=== PATIENT | female | born 1945 | race Asian ===

== ENCOUNTER 2017-05-06 07:23 | Day surgery (SDC) | payer OTHER ==
[2017-05-05 19:50] VITALS: BMI 24.2
[2017-05-06 07:46] VITALS: TEMP 97.8
[2017-05-06 07:51] LABS: BASOPHIL 0.9 % (0-2.0); EOSINOPHIL 1.3 % (0-4.5); MCH 27.4 pg (25.7-33.7); MCHC 32.8 g/dl (32.0-36.0); MEAN CELL VOLUME 83.5 fl (80-96); MEAN PLT VOLUME 9.3 fl (7.5-11.1); NEUTROPHILS 61.7 % (42.8-82.8); PLATELET COUNT 152 K/MM3 (134-434); RDW 13.8 % (11.6-15.6)
[2017-05-06 08:12] LABS: INR 1.01 (0.82-1.09); PROTHROMBIN TIME (PATIENT) 11.1 SEC (9.98-11.88)
[2017-05-06 13:43] VITALS: PULSE 50
[2017-05-06 14:57] VITALS: BP 173/72
--- NOTE | 2017-05-07 13:15 | PATH ---
Surgical Pathology Report Patient Name: JHON SUMMERS [facility]. Rec. #: [id number] /Age/Gender: 1945 (Age: 71) / F Account: [id number] Location: RADIOLOGY Taken: 05/06/2017 Received: 05/06/2017 Reported: 05/07/2017 Physicians: Ascencion Mckeon M.D. Al Gann M.D. Kieran Estrada M.D. Specimen(s) Received LEFT UPPER LOBE LUNG BIOPSY Clinical History 71-year-old with enlarging left lung apex nodule Final Diagnosis LUNG, LEFT UPPER LOBE, CT GUIDED CORE BIOPSY: PULMONARY ADENOCARCINOMA, WELL TO MODERATELY DIFFERENTIATED, WITH PREDOMINANT ACINAR AND FOCAL LEPIDIC GROWTH PATTERNS. Comment: PD-L1 studies, EGFR and ALK studies are pending; results will be reported in an addendum.. The case was discussed with Dr. Gann on 05/07/17. Electronically Signed Napoleon Cruz M.D. Gross Description Received in formalin labelled "left lung biopsy" is 3 filaments of brumfield tissue each of which is less than 0.1 cm in diameter and between 0.3 and 0.8 cm in length. Totally submitted in one cassette. [facility]/05/06/2017 [facility]/05/06/2017
== END 2017-05-06 14:30 | disposition home or self-care (01) ==
LOC: JRADIR 07:23
PROVIDERS: ATTEND Internal Medicine Pulmonary Disease
PROC: BB2 Imaging, Respiratory System, Computerized Tomography (CT Scan) (ICD-10-PCS; principal; 2017-05-06)
DX: C34.12 Malignant neoplasm of upper lobe, left bronchus or lung (principal)
CPT/HCPCS: 32405; 36415; 71010-TC; 76098-TC; 77012-TC; 85025; 85610; 87899; 88305-TC

== ENCOUNTER 2019-07-13 08:21 | Inpatient (IN) | payer OTHER ==
--- NOTE | 2019-07-13 08:48 | PDOC ---
History of Present Illness - General Chief Complaint: Nausea/Vomiting Stated Complaint: Nausea/Vomiting Time Seen by Provider: 07/13/19 08:48 - History of Present Illness Initial Comments: 07/13/19 09:44 Ms. Portillo is a 74yo F with a pmhx of HTN, afib (on eliquis), HLD, and lung ca (s/ p L upper lobectomy) who presents to the ED with 3 days of epigastric pain also associated with bloating and back pain. Per the patient, she has been feeling like she has "trouble digesting" for the last several months but 3 days ago her sx became acutely worse and she also began to have back pain. She states the pain is in the epigastric region, is worse after eating and associated with bloating. She describes the pain as "tearing" and states it radiates to her back. She also said this morning she felt dizzy when getting out of bed. On ROS she denied BUTCHER, changes in vision/ hearing, throat pain, skin changes, diarrhea, constipation, vomiting. She endorsed chills, nausea, and dry heaving. 07/13/19 10:28 Past History - Travel Traveled outside of the country in the last 30 days: No Close contact w/someone who was outside of country & ill: No - Past Medical History Allergies/Adverse Reactions: Allergies Allergy/AdvReac Type Severity Reaction Status Date / Time No Known Drug Allergies Allergy Verified 05/05/17 19:50 Home Medications: Ambulatory Orders Apixaban [Eliquis] 5 mg PO BID 05/05/17 Losartan Potassium 100 mg PO DAILY 05/05/17 Metoprolol Succinate [Toprol Xl -] 12.5 mg PO DAILY 05/05/17 Simvastatin 20 mg PO HS 05/05/17 HTN: Yes Hypercholesterolemia: Yes Thyroid Disease: No - Psycho Social/Smoking Cessation Hx Smoking History: Never smoked Have you smoked in the past 12 months: No Hx Alcohol Use: No Drug/Substance Use Hx: No Substance Use Type: None Hx Substance Use Treatment: No Review of Systems - Review of Systems Able to Perform ROS?: Yes Is the patient limited Lao proficient: Yes Constitutional: Yes: Chills. No: Diaphoresis, Fever, Night Sweats, Weakness HEENTM: No: Eye Pain, Ear Pain, Nose Pain, Throat Pain Respiratory: Yes: Cough. No: Orthopnea, Shortness of Breath Cardiac (ROS): Yes: Irregular Heart Rate. No: Chest Pain, Lightheadedness ABD/GI: Yes: Abdominal Distended, Nausea. No: Abd. Pain w/ defecation, Constipated, Diarrhea, Rectal Bleeding, Vomiting, Tarry Stools : Yes: Dysuria (occasional). No: Flank Pain, Hematuria Musculoskeletal: Yes: Back Pain. No: Muscle Pain, Muscle Weakness Integumentary: No: Bruising, Lesions, Lumps, Rash Neurological: Yes: Dizziness. No: Headache, Numbness, Tingling Endocrine: No: Excessive Sweating, Flushing, Intolerance to Cold, Intolerance to Heat All Other Systems: Reviewed and Negative *Physical Exam - Physical Exam General Appearance: Yes: Nourished, Appropriately Dressed. No: Apparent Distress HEENT: positive: JOSE ELIAS, Normal ENT Inspection, Pharynx Normal Neck: positive: Trachea midline, Supple. negative: Tender Respiratory/Chest: positive: Lungs Clear, Normal Breath Sounds. negative: Respiratory Distress, Accessory Muscle Use, Crackles, Rales, Wheezing Cardiovascular: positive: Regular Rhythm, Regular Rate, S1, S2. negative: Murmur Gastrointestinal/Abdominal: positive: Normal Bowel Sounds, Flat, Soft, Tenderness (in the suprapubic area to deep palpation only). negative: Organomegaly, Pulsatile Mass Musculoskeletal: positive: Normal Inspection. negative: CVA Tenderness Extremity: positive: Normal Capillary Refill, Normal Inspection, Normal Range of Motion Integumentary: positive: Normal Color, Dry, Warm Neurologic: positive: circus roustabout II-XII NML intact, Fully Oriented, Alert, Normal Mood/ Affect, Normal Response, Motor Strength 12/11 ED Treatment Course - LABORATORY CBC & Chemistry Diagram: 07/13/19 09:40 07/13/19 09:40 Medical Decision Making - Medical Decision Making 07/13/19 09:50 Ms. Portillo is a 74yo F with a pmhx of HTN, afib (on eliquis), HLD, and lung ca (s/ p L upper lobectomy) who presents to the ED with 3 days of epigastric pain also associated with bloating and back pain. DDx includes PUD vs. cholelithiasis. Will Obtain: - CBC - CMP - Troponins - Lipase - UA/ucx - EKG - POCUS GB 07/13/19 12:57 -UA consistent with UTI, will tx with macrobid - LFTs slightly elevated, will obtain RUQ U/S 07/13/19 15:13 - RUQ u/s with evidence of "slightly coarse echotexture of the liver which may indicate fatty liver infiltrate vs. hepatocellular disease. Small amount GB sludge with small stones and significant thickening of the GB wall, measuring 11mm near the neck. No pericholecystic free fluid" Discharge - Discharge Information Problems reviewed: Yes Clinical Impression/Diagnosis: Abdominal pain Qualifiers: Abdominal location: epigastric Qualified Code(s): R10.13 - Epigastric pain Condition: Stable - Admission Yes - Follow up/Referral Referrals: ON STAFF,NOT [Primary Care Provider] - - Patient Discharge Instructions - Post Discharge Activity
[2019-07-13 08:49] VITALS: BMI 24.7
--- NOTE | 2019-07-13 10:11 | PDOC ---
Attending Attestation - Resident Resident Name: Gisela Culver - ED Attending Attestation I have performed the following: I have examined & evaluated the patient, The case was reviewed & discussed with the resident, I agree w/resident's findings & plan, Exceptions are as noted - HPI HPI: 07/13/19 10:22 74y F hx of htn, afib on eliquis, hl, lung ca (sp lobectomy) presents with worsening epigastric pain for last 3 days associated with burping and bloating especially after eating. Patient denies any fever, chills, cp, vomiting, diarrhea, shortness of breath, numbness, tingling, weakness. The patient does endorse some discomfort with urination. On exam the patient is in no acute distress Abdomen is mildly tender in the suprapubic region No CVA tenderness The patient's heart rate slightly bradycardic however seems regular Pulmonary exam: CTA bilaterally Differential for the patient's symptoms includes pancreatitis, gastritis, PUD, UTI, gallbladder disease The patient has mild epigastric tenderness We will obtain blood work, gallbladder ultrasound, UA - Physicial Exam PE: 07/15/19 09:16 see above - Medical Decision Making 07/13/19 12:02 Patient's blood work was reviewed LFTs slightly elevated UA is consistent with a UTI -we will treat with antibiotic Awaiting gallbladder ultrasound to screen for gallstones 07/13/19 17:02 The patient's ultrasound reveals some gallstones without obvious choledocholithiasis however there is significant wall thickening. As the patient does have some elevated LFTs will admit the patient for further evaluation and GI consultation. We will start the patient on ceftriaxone due to the wall thickening and, possibility of Cholecystitis. Heart Score/ECG Review - ECG Impressions Comment:: 07/13/19 12:04 Twelve-lead EKG was performed and reviewed by me. There is normal sinus rhythm with a rate of 55. The axis is normal. LVH T wave inversion in lateral leads Impression sinus bradycardia
[2019-07-13 10:12] LABS: BASO % 0.5 % (0-2.0); EOS % 0.4 % (0-4.5); HEMATOCRIT 42.5 % (32.4-45.2); HEMOGLOBIN 14.1 GM/dL (10.7-15.3); LYMPH % 14.9 % (8-40); MCH 28.4 pg (25.7-33.7); MCHC 33.2 g/dl (32.0-36.0); MEAN CELL VOLUME 85.4 fl (80-96); MEAN PLT VOLUME 9.1 fl (7.5-11.1); NEUT % 78.2 % (42.8-82.8); PLATELET COUNT 181 K/MM3 (134-434); RBC 4.98 M/mm3 (3.60-5.2); RDW 13.5 % (11.6-15.6); WHITE BLOOD COUNT 7.1 K/mm3 (4.0-10.0)
[2019-07-13] MEDS ORDERED: PANTOPRAZOLE SODIUM 40 MG VIAL IVPUSH ONE (10:23)
[2019-07-13 10:28] LABS: EPI CELLS 0.5 /HPF (0-5/HPF); HYALINE CASTS 44 /lpf (0-8); URINE APPEARANCE CLOUDY; URINE BACTERIA 4351.7 /hpf (NEGATIVE); URINE BILIRUBIN NEGATIVE (NEGATIVE); URINE COLOR YELLOW; URINE GLUCOSE (UA) NEGATIVE (NEGATIVE); URINE KETONE NEGATIVE (NEGATIVE); URINE LEUK ESTERASE 3+ (NEGATIVE); URINE NITRITE POSITIVE (NEGATIVE); URINE PROTEIN NEGATIVE (NEGATIVE); URINE RBC 4 /hpf (0-4); URINE UROBILINOGEN 0.2 mg/dL (0.2-1.0); URINE WBC 122 /hpf (0-5)
[2019-07-13 10:35] LABS: ALBUMIN 3.6 g/dl (3.4-5.0); ALK PHOS 71 U/L (45-117); ANION GAP 7 MMOL/L (8-16); BILIRUBIN,TOTAL 1.2 mg/dL (0.2-1); BLOOD UREA NITROGEN 9.4 mg/dL (7-18); CALCIUM 9.1 mg/dL (8.5-10.1); CHLORIDE 110 mmol/L (98-107); CO2 28 mmol/L (21-32); CREATININE 0.7 mg/dL (0.55-1.3); GLUCOSE,RANDOM 99 mg/dL (74-106); POTASSIUM 3.4 mmol/L (3.5-5.1); SGOT/AST 54 U/L (15-37); SGPT/ALT 155 U/L (13-61); SODIUM 144 mmol/L (136-145); TOT PROT 6.8 g/dl (6.4-8.2)
[2019-07-13] MEDS ORDERED: PANTOPRAZOLE SODIUM 40 MG/100 ML BAG IVPB ONE (10:49)
[2019-07-13] MEDS ORDERED: NITROFURANTOIN MACROCRYSTAL 50 MG CAPSULE (FP) PO SCH (12:15)
[2019-07-13] MEDS ORDERED: NITROFURANTOIN MACROCRYSTAL 50 MG CAPSULE (FP) ONE (13:14)
[2019-07-13] MEDS ORDERED: CEFTRIAXONE 1 GM in DEXTROSE 5%-WATER - 50 ML IVPB ONE ×2 (16:57→17:30)
--- NOTE | 2019-07-13 18:00 | PN ---
Teaching Attending Note Name of Resident: Geovanny Marin ATTENDING PHYSICIAN STATEMENT I saw and evaluated the patient. I reviewed the resident's note and discussed the case with the resident. I agree with the resident's findings and plan as documented with exceptions below. SUBJECTIVE: 74 yof with PMhx of Afib on Eliquis, HTN, HLD, BRENNA adenocarcinoma s/p lobectomy 2017, comes with 3 days of worsening epigastric discomfort, sharp radiating to back, more in RUQ, only with PO intake, none otherwise, associated with chills, nausea and poor oral intake. This AM, patient felt dizzy, weak, nausea with ongoing symptoms resulting in poor oral intake, prompting her to come to the ED. Patient reports intermittent dyspepsia with oral intake over the last 1 year, has been worse over last 2-3 days. per family last Gi follow up 6-7 years ago, with no recent follow up. H/o intermittent palpitations, was placed on Holter for 2 weeks till 06/[address] Chapman, with no report yet. Patient currently denies any chest pain, palpitations, dyspnea. Dizziness resolved. Activity limited by arthritis and some baseline dyspnea since her lobecotmy but no c/o exertional chest pain, worsening shortness of breath or prior h/o OR or CHF per family. Also c/o some dysuria for 1 day. OBJECTIVE: Vital Signs Period Temp Pulse Resp BP Sys/C[place]ez Pulse Ox Last 24 Hr 97.6 F-98.0 F 54-66 16-20 114-149/44-79 92-98 Intake & Output 07/10/19 07/11/19 07/12/19 07/13/19 23:59 23:59 23:59 23:59 Weight 135 lb GENERAL: Awake, alert, and fully oriented, in no acute distress. HEAD: Normal with no signs of trauma. EYES: Pupils equal, round and reactive to light, extraocular movements intact, sclera anicteric, conjunctiva clear. No lid lag. EARS, NOSE, THROAT: Ears normal, nares patent, oropharynx clear without exudates. Dry mucous membranes. NECK: Normal range of motion, supple, no JVD LUNGS: decreased breath sounds left lung, no rales or wheezing noted. HEART: Regular rate and rhythm, normal S1 and S2, systolic murmur in aortic region. ABDOMEN: Soft, tenderness in RUQ/Epigastrium/bhavin-umbilical region, most in RUQ , pos Renner's sign, no voluntary or involuntary guarding or rigidity, pos bowel sounds MUSCULOSKELETAL: Normal range of motion at all joints. No bony deformities or tenderness. No CVA tenderness. UPPER EXTREMITIES: 2+ pulses, warm, well-perfused. No cyanosis. No clubbing. No peripheral edema. LOWER EXTREMITIES: 2+ pulses, warm, well-perfused. No calf tenderness. No peripheral edema. NEUROLOGICAL: AAOx3, Cranial nerves II-XII intact. Normal speech. gait not observed PSYCHIATRIC: Cooperative. Good eye contact. Appropriate mood and affect. SKIN: Warm, dry, decreased turgor, no rashes or lesions noted, normal capillary refill. Home Medications Medication Instructions Recorded Apixaban [Eliquis] 5 mg PO BID 05/05/17 Losartan Potassium 100 mg PO DAILY 05/05/17 Metoprolol Succinate [Toprol Xl -] 25 mg PO DAILY 05/05/17 Simvastatin 20 mg PO HS 05/05/17 Amlodipine Besylate 5 mg PO HS 07/13/19 Hydrochlorothiazide [Hctz -] 12.5 mg PO DAILY 07/13/19 Oxybutynin Chloride [Ditropan Xl] 5 mg PO HS 07/13/19 Laboratory Results - last 24 hr 07/13/19 07/13/19 07/13/19 09:40 09:40 09:40 WBC 7.1 RBC 4.98 Hgb 14.1 Hct 42.5 MCV 85.4 MCH 28.4 MCHC 33.2 RDW 13.5 Plt Count 181 MPV 9.1 Absolute Neuts (auto) 5.5 Neutrophils % 78.2 D Lymphocytes % 14.9 D Monocytes % 6.0 Eosinophils % 0.4 D Basophils % 0.5 Nucleated RBC % 0 Sodium 144 Potassium 3.4 L Chloride 110 H Carbon Dioxide 28 Anion Gap 7 L BUN 9.4 Creatinine 0.7 Est GFR (CKD-EPI)AfAm 97.54 Est GFR (CKD-EPI)NonAf 84.16 Random Glucose 99 Calcium 9.1 Total Bilirubin 1.2 H AST 54 H ALT 155 H Alkaline Phosphatase 71 Troponin I < 0.02 Total Protein 6.8 Albumin 3.6 Lipase 102 Urine Color Urine Appearance Urine pH Ur Specific [place] Urine Protein Urine Glucose (UA) Urine Ketones Urine Blood Urine Nitrite Urine Bilirubin Urine Urobilinogen Ur Leukocyte Esterase Urine WBC (Auto) Urine RBC (Auto) Urine Casts (Auto) U Epithel Cells (Auto) Urine Bacteria (Auto) 07/13/19 10:05 WBC RBC Hgb Hct MCV MCH MCHC RDW Plt Count MPV Absolute Neuts (auto) Neutrophils % Lymphocytes % Monocytes % Eosinophils % Basophils % Nucleated RBC % Sodium Potassium Chloride Carbon Dioxide Anion Gap BUN Creatinine Est GFR (CKD-EPI)AfAm Est GFR (CKD-EPI)NonAf Random Glucose Calcium Total Bilirubin AST ALT Alkaline Phosphatase Troponin I Total Protein Albumin Lipase Urine Color Yellow Urine Appearance Cloudy Urine pH 7.0 Ur Specific [place] 1.007 L Urine Protein Negative Urine Glucose (UA) Negative Urine Ketones Negative Urine Blood Negative Urine Nitrite Positive H Urine Bilirubin Negative Urine Urobilinogen 0.2 Ur Leukocyte Esterase 3+ H Urine WBC (Auto) 122 Urine RBC (Auto) 4 Urine Casts (Auto) 44 U Epithel Cells (Auto) 0.5 Urine Bacteria (Auto) 4351.7 Gall bladder US results noted EKG sinus bradycardia, T inversion in aVL, V4-V6 (not present in 2017) ASSESSMENT AND PLAN: 74 yof with PMhx of Afib on Eliquis, HTN, HLD, BRENNA adenocarcinoma s/p lobectomy 2017, admitted with post prandial abdominal pain, abnormal LFTs and imaging consistent with gall stones and thickened gall bladder wall. -Biliary colic, low suspicion for biliary obstruction/cholangitis currently -Suspected acute on chronic cholecystitis -Abnormal LFts, likely from above -Lower uncomplicated UTI -Dehydration -Atrial fibrillation on eliquis -HTN -HLD -BRENNA adenocarcinoma s/p lobectomy 2016 Plan: Surgery consult, discussed with Dr. Floyd NPO, IVF, Ceftriaxone/flagyl. Serial abdominal exams. Trend LFTs, monitor hemodynamics closely. Blood cultures/escalation of abx if fevers or new concerns. Family requests GI consult. PPI IV daily Urine cultures. EKG with lateral T wave inversion, unclear if new. patient no active symptoms concerning for ACS. Will place on telemetry overnight, repeat Trop. Per family, recent holter with Dr. Chapman. Discuss with Dr. Chapman in AM, retrieve recent 2D echo results. Cardiology consult for pre-operative risk stratification. Continue metoprolol as tolerated. Hold norvasc/losartan for now. Hold eliquis (did not take her dose this AM) lovenox BID, to be held in AM pending surgical plans. Hold statin. DVTPPX as above Dispo admit to inpatient telemetry. Plan discussed with patient and family at bedside in detail, all questions answered total admit time 65 min.
--- NOTE | 2019-07-13 18:17 | HP ---
CHIEF COMPLAINT: Abdominal pain PCP: HISTORY OF PRESENT ILLNESS: Daughter at bedside assisting in Translating as pt Latvian speaking Pt is a 74 y/o F (Latvian speaking) Afib on Eliquis, HTN, HLD, BRENNA adenocarcinoma s/p lobectomy 2016 who presented to [facility] due to 3 days of progressively worsening right sided abdominal pain. Pt also endorses GI upset after she consumes food. Pt develops a stomach ache shortly after consuming food. Pt has experienced abdominal pain for the past 1 year associated with food but endorses she came to the ED today because symptoms have been progressively worse for the past 3 days. Endorses bloating, flatulence, chills, and cold sweats. States she has had a colonoscopy ~6-7 years ago which was reportedly normal. Does state she experiences palpitations and recently had a holter monitor on but has not received the results (Follows w/ Dr Patricio Toro- [facility]). ER course was notable for: (1) Gallbladder U/S---Slightly Coarse echotexture of liver. Small gallbladder sludge and likely small stones with significant thickening of its wall, adjacent to gallbladder neck region where measuring 11 mm thickness. Further evaluation is needed. No pericholecystic free fluid is present. Negative Sono murphys. (2) (3) Recent Travel: PAST MEDICAL HISTORY: as above PAST SURGICAL HISTORY: Hysterectomy, Lung Lobectomy Social History: Smoking: Denies Alcohol: Denies Drugs: Denies Allergies No Known Drug Allergies Allergy (Verified 05/05/17 19:50) HOME MEDICATIONS: Home Medications Medication Instructions Recorded Apixaban [Eliquis] 5 mg PO BID 05/05/17 Losartan Potassium 100 mg PO DAILY 05/05/17 Metoprolol Succinate [Toprol Xl -] 25 mg PO DAILY 05/05/17 Simvastatin 20 mg PO HS 05/05/17 Amlodipine Besylate 5 mg PO HS 07/13/19 Hydrochlorothiazide [Hctz -] 12.5 mg PO DAILY 07/13/19 Oxybutynin Chloride [Ditropan Xl] 5 mg PO HS 07/13/19 REVIEW OF SYSTEMS CONSTITUTIONAL: PRESENT chills HEENT: Absent: rhinorrhea, nasal congestion, throat pain, throat swelling, difficulty swallowing, mouth swelling, ear pain, eye pain, visual changes CARDIOVASCULAR: Absent: chest pain, syncope, palpitations, irregular heart rate, lightheadedness , peripheral edema RESPIRATORY: Absent: cough, shortness of breath, dyspnea with exertion, orthopnea, wheezing, stridor, hemoptysis GASTROINTESTINAL: PRESENT abdominal pain, abdominal distension, nausea GENITOURINARY: Absent: dysuria, frequency, urgency, hesitancy, hematuria, flank pain, genital pain MUSCULOSKELETAL: Absent: myalgia, arthralgia, joint swelling, back pain, neck pain SKIN: Absent: rash, itching, pallor HEMATOLOGIC/IMMUNOLOGIC: Absent: easy bleeding, easy bruising, lymphadenopathy, frequent infections ENDOCRINE: Absent: unexplained weight gain, unexplained weight loss, heat intolerance, cold intolerance NEUROLOGIC: Absent: headache, focal weakness or paresthesias, dizziness, unsteady gait, seizure, mental status changes, bladder or bowel incontinence PSYCHIATRIC: Absent: anxiety, depression, suicidal or homicidal ideation, hallucinations. PHYSICAL EXAMINATION Vital Signs - 24 hr 07/13/19 07/13/19 07/13/19 08:39 09:42 10:07 Temperature 97.6 F Pulse Rate 66 Pulse Rate [ 56 L Left Radial] Respiratory 20 16 Rate Blood Pressure 149/79 Blood Pressure 118/61 [Right Arm] O2 Sat by Pulse 92 L 98 Oximetry (%) 07/13/19 07/13/19 16:46 18:08 Temperature 98.0 F 98.0 F Pulse Rate Pulse Rate [ 54 L 60 Left Radial] Respiratory 16 Rate Blood Pressure Blood Pressure 114/44 L 130/51 L [Right Arm] O2 Sat by Pulse 96 98 Oximetry (%) GENERAL: NAD HEAD: Normal with no signs of trauma. EYES: EOMI Sclera Clear EARS, NOSE, THROAT: MMM NECK: Supple LUNGS: CTA b/l HEART: RRR S1S2 ABDOMEN: Soft, no guarding or rigidity. Tender RUQ. Renner's negative during my exam. LOWER EXTREMITIES: No CCE NEUROLOGICAL: Cranial nerves II-XII intact. Normal speech. PSYCHIATRIC: Cooperative. Good eye contact. Appropriate mood and affect. SKIN: Warm, dry, normal turgor, no rashes or lesions noted, normal capillary refill. Laboratory Results - last 24 hr 07/13/19 07/13/19 07/13/19 09:40 09:40 09:40 WBC 7.1 RBC 4.98 Hgb 14.1 Hct 42.5 MCV 85.4 MCH 28.4 MCHC 33.2 RDW 13.5 Plt Count 181 MPV 9.1 Absolute Neuts (auto) 5.5 Neutrophils % 78.2 D Lymphocytes % 14.9 D Monocytes % 6.0 Eosinophils % 0.4 D Basophils % 0.5 Nucleated RBC % 0 Sodium 144 Potassium 3.4 L Chloride 110 H Carbon Dioxide 28 Anion Gap 7 L BUN 9.4 Creatinine 0.7 Est GFR (CKD-EPI)AfAm 97.54 Est GFR (CKD-EPI)NonAf 84.16 Random Glucose 99 Calcium 9.1 Total Bilirubin 1.2 H AST 54 H ALT 155 H Alkaline Phosphatase 71 Troponin I < 0.02 Total Protein 6.8 Albumin 3.6 Lipase 102 Urine Color Urine Appearance Urine pH Ur Specific [place] Urine Protein Urine Glucose (UA) Urine Ketones Urine Blood Urine Nitrite Urine Bilirubin Urine Urobilinogen Ur Leukocyte Esterase Urine WBC (Auto) Urine RBC (Auto) Urine Casts (Auto) U Epithel Cells (Auto) Urine Bacteria (Auto) 07/13/19 10:05 WBC RBC Hgb Hct MCV MCH MCHC RDW Plt Count MPV Absolute Neuts (auto) Neutrophils % Lymphocytes % Monocytes % Eosinophils % Basophils % Nucleated RBC % Sodium Potassium Chloride Carbon Dioxide Anion Gap BUN Creatinine Est GFR (CKD-EPI)AfAm Est GFR (CKD-EPI)NonAf Random Glucose Calcium Total Bilirubin AST ALT Alkaline Phosphatase Troponin I Total Protein Albumin Lipase Urine Color Yellow Urine Appearance Cloudy Urine pH 7.0 Ur Specific [place] 1.007 L Urine Protein Negative Urine Glucose (UA) Negative Urine Ketones Negative Urine Blood Negative Urine Nitrite Positive H Urine Bilirubin Negative Urine Urobilinogen 0.2 Ur Leukocyte Esterase 3+ H Urine WBC (Auto) 122 Urine RBC (Auto) 4 Urine Casts (Auto) 44 U Epithel Cells (Auto) 0.5 Urine Bacteria (Auto) 4351.7 ASSESSMENT/PLAN: Pt is a 74 y/o F (Latvian speaking) Afib on Eliquis, HTN, HLD, BRENNA adenocarcinoma s/p lobectomy 2016 who presented to [facility] due to 3 days of progressively worsening right sided abdominal pain. #Abdominal pain 2/2 Cholelithiasis or Peptic Ulcer -Gallbladder U/S--> Gallbladder U/S---Slightly Coarse echotexture of liver. Small gallbladder sludge and likely small stones with significant thickening of its wall, adjacent to gallbladder neck region where measuring 11 mm thickness. Further evaluation is needed. No pericholecystic free fluid is present. Negative Sono murphys. -Bili, AST, ALT: 1.2, 54, 155 respectively. -Given Ceftriaxone in ED -Will place on Cef+Flagyl -Surgery on board-Dr Floyd. Recs appreciated. -Will switch Eliquis for Lovenox 1 mg/kg BID as pt may possiblly be a surgical candidate -NPO -Pantoprazole -GI Consult. Appreciate recs. #R/O ACS -EKG with new T wave inversions -Will place on tele. 1st trop negative. Will order stat repeat. #AFIB -Will switch Eliquis to Lovenox 1mg/kg BID #HLD Hold statin in light of elevated liver enzymes #HTN Continue Metoprolol. Hold Norvasc and HCTZ #FEN D51/2 NS w/ 20 mEQ KCL Monitor Electrolytes NPO #DVT ppx: Lovenox 1mg/kg BID #Dispo Tele Visit type - Emergency Visit Emergency Visit: Yes ED Registration Date: 07/13/19 Care time: The patient presented to the Emergency Department on the above date and was hospitalized for further evaluation of their emergent condition. - New Patient This patient is new to me today: Yes Date on this admission: 07/13/19 - Critical Care Critical Care patient: No ATTENDING PHYSICIAN STATEMENT I saw and evaluated the patient. I reviewed the resident's note and discussed the case with the resident. I agree with the resident's findings and plan as documented. SUBJECTIVE: OBJECTIVE: ASSESSMENT AND PLAN:
[2019-07-13] MEDS ORDERED: D5-1/2NS+20 MEQ KCL - 20 MEQ/1,000 ML INFUS.BAG IV SCH (19:00)
[2019-07-13] MEDS ORDERED: ENOXAPARIN NA (PORCINE) 60 MG/0.6 ML DISP.SYRIN SQ ONE (22:31)
[2019-07-13] MEDS: ENOXAPARIN NA (PORCINE) 60 MG/0.6 ML DISP.SYRIN SQ SCH (22:44)
[2019-07-13 23:44] LABS: BILIRUBIN,DIRECT 0.3 mg/dL (0.0-0.2)
[2019-07-14 06:31] LABS: BASO % 0.9 % (0-2.0); EOS % 0.9 % (0-4.5); HEMATOCRIT 39.8 % (32.4-45.2); HEMOGLOBIN 13.2 GM/dL (10.7-15.3); LYMPH % 31.1 % (8-40); MCH 28.4 pg (25.7-33.7); MCHC 33.2 g/dl (32.0-36.0); MEAN CELL VOLUME 85.5 fl (80-96); MEAN PLT VOLUME 9.1 fl (7.5-11.1); MONO % 7.7 % (3.8-10.2); NEUT % 59.4 % (42.8-82.8); PLATELET COUNT 161 K/MM3 (134-434); RBC 4.65 M/mm3 (3.60-5.2); RDW 13.2 % (11.6-15.6); WHITE BLOOD COUNT 4.3 K/mm3 (4.0-10.0)
[2019-07-14 06:51] LABS: INR 0.99 (0.83-1.09); PROTHROMBIN TIME (PATIENT) 11.7 SEC (9.7-13.0)
[2019-07-14 06:54] LABS: ACTIVATED PTT 37.2 SECONDS (25.2-36.5)
[2019-07-14 06:56] LABS: ALBUMIN 3.2 g/dl (3.4-5.0); BILIRUBIN,TOTAL 1.2 mg/dL (0.2-1); BLOOD UREA NITROGEN 9.2 mg/dL (7-18); CALCIUM 8.3 mg/dL (8.5-10.1); CREATININE 0.7 mg/dL (0.55-1.3); MAGNESIUM 2.1 mg/dL (1.8-2.4); PHOSPHOROUS 2.8 mg/dL (2.5-4.9); POTASSIUM 3.2 mmol/L (3.5-5.1); TOT PROT 5.8 g/dl (6.4-8.2)
[2019-07-14] MEDS ORDERED: KCL 10 MEQ IVPB 10 MEQ/100 ML INFUS.BAG IVPB ONE ×3 (07:52→13:17)
--- NOTE | 2019-07-14 08:30 | CONSULT ---
- Consultation REQUESTING PROVIDER: CONSULT REQUEST: We have been asked to surgically evaluate this patient for cholecystitis PCP:Josue Hackett MD HISTORY OF PRESENT ILLNESS: 74yo F presented to the ED with complaints of worsening epigastric pain x 2 days. Pt states that the pain has been intermittant for the past year usually occuring after she eats then going away. Pt states that 2 days ago the pain started and was epigastric radiating to her back. Pain was associated with nausea, but no vomiting. Pt denies fever, chill. PMHx: Afib on eliquis, HTN, HLD, lung cancer (in remission) PSHx: BRENNA lobectomy, abdominal hysterectomy Home Medications Medication Instructions Recorded Apixaban [Eliquis] 5 mg PO BID 05/05/17 Losartan Potassium 100 mg PO DAILY 05/05/17 Metoprolol Succinate [Toprol Xl -] 25 mg PO DAILY 05/05/17 Simvastatin 20 mg PO HS 05/05/17 Amlodipine Besylate 5 mg PO HS 07/13/19 Hydrochlorothiazide [Hctz -] 12.5 mg PO DAILY 07/13/19 Oxybutynin Chloride [Ditropan Xl] 5 mg PO HS 07/13/19 Allergies Allergy/AdvReac Type Severity Reaction Status Date / Time No Known Drug Allergies Allergy Verified 05/05/17 19:50 REVIEW OF SYSTEMS: CARDIOVASCULAR: Absent: chest pain, syncope, palpitations, irregular heart rate, lightheadedness , peripheral edema RESPIRATORY: Absent: cough, shortness of breath, dyspnea with exertion, wheezing, stridor, hemoptysis MUSCULOSKELETAL: Absent: myalgia, arthralgia, joint swelling, back pain, neck pain SKIN: Absent: rash, itching, pallor HEMATOLOGIC/IMMUNOLOGIC: Absent: easy bleeding, easy bruising, lymphadenopathy PHYSICAL EXAM: GENERAL: Awake, alert, and fully oriented, in no acute distress. HEAD: Normal with no signs of trauma. EYES: PERRL, sclera anicteric, conjunctiva clear. NECK: Normal ROM ABDOMEN: Soft, mild epigastric and RUQ tenderness, not distended, no guarding, no rebound, no masses. No organomegaly. MUSCULOSKELETAL: Normal ROM at all joints. No bony deformities or tenderness. No CVA tenderness. UPPER EXTREMITIES: warm, well-perfused. No cyanosis.No peripheral edema. LOWER EXTREMITIES: warm, well-perfused. No calf tenderness. No peripheral edema. NEUROLOGICAL: Normal speech, gait not observed. PSYCH: Cooperative. Good eye contact. Appropriate mood and affect. SKIN: Warm, dry, normal turgor, no rashes or lesions noted. Vital Signs Temperature 97.6 F 07/14/19 07:07 Pulse Rate 56 L 07/14/19 07:07 Respiratory Rate 18 07/14/19 07:07 Blood Pressure 122/66 07/14/19 07:07 O2 Sat by Pulse Oximetry (%) 96 07/14/19 07:07 Lab Results WBC 4.3 K/mm3 (4.0-10.0) 07/14/19 05:30 RBC 4.65 M/mm3 (3.60-5.2) 07/14/19 05:30 Hgb 13.2 GM/dL (10.7-15.3) 07/14/19 05:30 Hct 39.8 % (32.4-45.2) 07/14/19 05:30 MCV 85.5 fl (80-96) 07/14/19 05:30 MCHC 33.2 g/dl (32.0-36.0) 07/14/19 05:30 RDW 13.2 % (11.6-15.6) 07/14/19 05:30 Plt Count 161 K/MM3 (134-434) 07/14/19 05:30 Sodium 144 mmol/L (136-145) 07/14/19 05:30 Potassium 3.2 mmol/L (3.5-5.1) L 07/14/19 05:30 Chloride 111 mmol/L (98-107) H 07/14/19 05:30 Carbon Dioxide 29 mmol/L (21-32) 07/14/19 05:30 Anion Gap 5 MMOL/L (8-16) L 07/14/19 05:30 BUN 9.2 mg/dL (7-18) 07/14/19 05:30 Creatinine 0.7 mg/dL (0.55-1.3) 07/14/19 05:30 Random Glucose 128 mg/dL (74-106) H 07/14/19 05:30 Calcium 8.3 mg/dL (8.5-10.1) L 07/14/19 05:30 INR 0.99 (0.83-1.09) 07/14/19 05:30 Gallbladder U/S--> Gallbladder U/S---Slightly Coarse echotexture of liver. Small gallbladder sludge and likely small stones with significant thickening of its wall, adjacent to gallbladder neck region where measuring 11 mm thickness. Further evaluation is needed. No pericholecystic free fluid is present. Negative Sono murphys. Problem List - Problems (1) Cholecystitis Assessment/Plan: Plan -due to elevated LFTs, will hold off on surgery today and most likely schedule for Wednesday. -trend LFTs, consider GI consult -continue NPO, IV fluids for now. -will need medical and cardiology clearance for surgery. -will follow Code(s): K81.9 - CHOLECYSTITIS, UNSPECIFIED
[2019-07-14] MEDS: KCL 10 MEQ IVPB 10 MEQ/100 ML INFUS.BAG IVPB SCH ×3 (08:41→13:24)
--- NOTE | 2019-07-14 09:12 | CON.CARD ---
Consult Consult Specialty:: Cardiology Referred by:: Dr. Hackett Reason for Consultation:: HTN/HLD - History of Present Illness Chief Complaint: Epigastric pain History of Present Illness: 74F HTN, HLD, PAF, 4.8cm thoracic aortic aneurysm (follow by Dr. Toor) presents with 2-3 days of worsening post prandial epigastric pain and nausea. US showed GB sludge and stones. Denies CP, SOB, + occasional palps corresponding to her PAF. Exercise capacity limited by OA knees. hx obtained from daughter at bedside in [place] - History Source History Provided By: Patient, Family Member Limitations to Obtaining History: No Limitations - Past Medical History BALLISTIC EXPERT: No: Alzheimer's, CVA, Dementia, Migraine, Multiple Sclerosis, Peripheral Neuropathy, Parkinson's, Seizure, Syncope, TIA, Vertigo, Other Cardio/Vascular: Yes: HTN, Other (4.8cm thoracic aortic aneurysm) Pulmonary: No: Asthma, Bronchitis, Cancer, COPD, O2 Dependent, Pneumonia, Previously Intubated, Pulmonary Embolus, Pulmonary Fibrosis, Sleep Apnea, Other Gastrointestinal: No: Ascites, Cancer, Constipation, Crohn's Disease, Diverticulitis, Diverticulosis, Esophageal Varices, Gastritis, GERD, GI Bleed, Hemorrhoids, Hiatal Hernia, Inflamatory Bowel Disease, Irritable Bowel Disease, Pancreatitis, Peptic Ulcer Disease, Ulcerative Colitis, Other Hepatobiliary: No: Cirrhosis, Cholelithiasis, Cholecystitis, Choledocholithiasis , Hepatitis A, Hepatitis B, Hepatitis C, Other Renal/: No: Renal Failure, Renal Inusuff, BPH, Cancer, Hematuria, Hemodialysis , Neurogenic Bladder, Renal Calculi, UTI, Other Reproductive: No: Ectopic , Endometriosis, Fibroids, PID, Polycystic Ovary Syndrome, Postmenopausal, Other Heme/Onc: Yes: Cancer, Other (lung ca s/p left lobectomy) Infectious Disease: No: AIDS, C-Diff, Herpes Zoster, HIV, MRSA, STD's, Tuberculosis, VREF, Other Musculoskeletal: Yes: Osteoarthritis Rheumatology: No: Fibromyalgia, Gout, Lupus, Rheumatoid Arthritis, Sarcoidosis, Vasculitis, Other ENT: No: Allergic Rhinitis, Sinusitis, Other Endocrine: No: Wich[place]'s Disease, Sarita's Disease, Diabetes Insipidus, Diabetes Mellitus, Hyperparathyroidism, Hyperthyroidism, Hypothyroidism, Osteopenia, SIADH, Other Dermatology: No: Basal Cell, Cellulitis, Eczema, Melanoma, Psoriasis, Squamous Cell, Other - Past Surgical History Additional Surgical History: lobectomy - Alcohol/Substance Use Hx Alcohol Use: No - Smoking History Smoking history: Never smoked Have you smoked in the past 12 months: No - Social History Usual Living Arrangement: Alone History of Recent Travel: No Home Medications - Allergies Allergies/Adverse Reactions: Allergies Allergy/AdvReac Type Severity Reaction Status Date / Time No Known Drug Allergies Allergy Verified 05/05/17 19:50 - Home Medications Home Medications: Ambulatory Orders Apixaban [Eliquis] 5 mg PO BID 05/05/17 Losartan Potassium 100 mg PO DAILY 05/05/17 Metoprolol Succinate [Toprol Xl -] 25 mg PO DAILY 05/05/17 Simvastatin 20 mg PO HS 05/05/17 Amlodipine Besylate 5 mg PO HS 07/13/19 Hydrochlorothiazide [Hctz -] 12.5 mg PO DAILY 07/13/19 Oxybutynin Chloride [Ditropan Xl] 5 mg PO HS 07/13/19 Family Medical History Family History: Unremarkable Review of Systems Findings/Remarks: see HPI - Review of Systems Constitutional: reports: No Symptoms Eyes: reports: No Symptoms HENT: reports: No Symptoms Neck: reports: No Symptoms Cardiovascular: reports: No Symptoms Respiratory: reports: No Symptoms Gastrointestinal: reports: Abdominal Pain, Nausea, Vomiting Blood Genitourinary: denies: No Symptoms, Burning, Discharge, Dysuria, Flank Pain, Frequency, Hematuria, Incontinence, Lesions, Menses, Pain, Testicular Mass, Testicular Pain, Testicular Swelling, Urgency, Vaginal Bleeding, Other Breasts: denies: No Symptoms Reported, See HPI, Breast Implants, Discharge from Nipple, Lumps, Pain, Skin Changes, Other Musculoskeletal: denies: No Symptoms, Back Pain, Crepitus, Decreased ROM, Extremity Pain, Joint Pain, Joint Swelling, Muscle Pain, Muscle Cramps, Muscle Weakness, Other Integumentary: denies: No Symptoms, Blister, Bruising, Change in Color, Eczema, Erythema, Incision, Lesions, Lump, Pallor, Pruritis, Rash, Wound, Other Neurological: denies: No Symptoms, Change in LOC, Change in Speech, Confusion, Dizziness, Headache, Incoordination, Numbness, Parasthesia, Pre-Existing Deficit , Seizure, Syncope, Tremors, Unsteady Gait, Weakness, Other Endocrine: denies: No Symptoms, Excessive Sweating, Flushing, Increased Hunger, Increased Thirst, Intolerance to Cold, Intolerance to Heat, Unexplained Weight Gain, Unexplained Weight Loss, Other Hematology/Lymphatic: denies: No Symptoms, Easily Bruised, Excessive Bleeding, Swollen Glands, Other Psychiatric: denies: No Symptoms, Altered Sleep Pattern, Anxiety, Depression, Hallucinations, Panic, Paranoia, Suicidal, Other - Risk Factors Known Risk Factors: Yes: Hypercholesterolemia, Hypertension Vital Signs: Vital Signs Temperature 97.6 F 07/14/19 07:07 Pulse Rate 56 L 07/14/19 07:07 Respiratory Rate 18 07/14/19 07:07 Blood Pressure 122/66 07/14/19 07:07 O2 Sat by Pulse Oximetry (%) 96 07/14/19 07:07 Constitutional: Yes: No Distress, Calm Eyes: Yes: Conjunctiva Clear, EOM Intact HENT: Yes: Atraumatic, Normocephalic Neck: Yes: Trachea Midline Respiratory: Yes: CTA Bilaterally Gastrointestinal: Yes: Soft (Mild RUQ tenderness) Renal/: No: WNL, Anuria, Bladder Distention, CVA Tenderness - Left, CVA Tenderness - Right, Lei Present, Hematuria, Incontinence, Menses Present, Oliguria, Polyuria, , Scrotal Edema, Urethral Discharge, Vaginal Bleeding, Vaginal Discharge, Other Cardiovascular: No: WNL, Regular Rate and Rhythm, Bradycardia, Tachycardia, Pulse Irregular, Gallop, Rub, Varicosities, Other JVD: No Carotid Bruit: No PMI: Non-Displaced Heart Sounds: Yes: S1, S2 Edema: No Peripheral Pulses WNL: No Integumentary: Yes: WNL Neurological: Yes: WNL - Other Data Labs, Other Data: CBC, BMP 07/14/19 05:30 07/14/19 05:30 INR, PTT INR 0.99 (0.83-1.09) 07/14/19 05:30 Troponin, BNP 07/13/19 07/13/19 09:40 22:41 Troponin I < 0.02 < 0.02 Troponin, BNP 07/13/19 07/13/19 09:40 22:41 Troponin I < 0.02 < 0.02 Laboratory Tests 07/13/19 07/13/19 07/13/19 09:40 09:40 22:41 WBC Hgb Plt Count INR Sodium Potassium Creatinine Magnesium Total Bilirubin AST 54 H ALT 155 H Alkaline Phosphatase Troponin I < 0.02 < 0.02 Lipase 102 07/14/19 07/14/19 07/14/19 05:30 05:30 05:30 WBC 4.3 Hgb 13.2 Plt Count 161 INR 0.99 Sodium 144 Potassium 3.2 L Creatinine 0.7 Magnesium 2.1 Total Bilirubin 1.2 H AST 26 ALT 98 H Alkaline Phosphatase 58 Troponin I Lipase Sinus agatha 55, LVH, NSST changes/ repol changes- I, AvL and V5/V6; when compared to EKG '[address]/T changes in V5/6 slightly more pronounced Echo: Pending Imaging - Results X-ray: Image Reviewed EKG: Image Reviewed Assessment/Plan IMP: 1. Biliary colic 2. PAF on AC 3. Chronic 4.8cm thoracic aortic aneurysm under surveillance 4. HTN 5. HLD 6. Hx Lung Ca, Lobectomy REC: 1. Work up and treatment of biliary colic as per PMD/GI/Surgery 2. If urgent cholecystectomy is necessary, there are no absolute cardiac contraindications to surgery (no , euvolemic, controlled BP, no unstable anginal sx). Echo for EF assessment. 3. Will try and obtain records from Dr. Toro 4. Continue home meds; now on Lovenox in event surgery required.
[2019-07-14] MEDS: metoPROLOL SUCCINATE 25 MG TAB.SR.24H (FP) PO SCH (09:49)
[2019-07-14] MEDS ORDERED: metoPROLOL SUCCINATE 25 MG TAB.SR.24H (FP) PO SCH (10:00)
[2019-07-14] MEDS ORDERED: D5-1/2NS+10 MEQ KCL - 10 MEQ/1,000 ML INFUS.BAG IV SCH (10:45)
--- NOTE | 2019-07-14 10:53 | ECHO ---
Name: JHON SUMMERS Exam:Adult Echocardiogram Study Date: 07/14/2019 09:59 AM Age: 74 yrs Reason For Study: LV Function Height: 62 in Weight: 135 lb BSA: 1.6 m2 MMode/2D Measurements & Calculations IVSd: 1.2 cm Ao root diam: 3.3 cm LVIDd: 3.3 cm LA dimension: 3.4 cm LVIDs: 2.5 cm LVPWd: 1.1 cm EDV(Teich): 45.2 ml LVOT diam: 2.0 cm ESV(Teich): 22.6 ml LAV (MOD-bp): 52.8 ml Doppler Measurements & Calculations MV E max navi: 107.0 cm/sec Ao V2 max: 162.9 cm/sec MV A max navi: 76.2 cm/sec Ao max P.6 mmHg MV E/A: 1.4 AI P1/2t: 464.6 msec MV dec time: 0.20 sec BEATRIZ(V,D): 2.4 cm2 AI max navi: 455.6 cm/sec LV V1 max P.2 mmHg AI max P.1 mmHg LV V1 max: 124.7 cm/sec AI dec slope: 287.2 cm/sec2 MR max navi: 537.5 cm/sec TR max navi: 297.9 cm/sec MR max P.2 mmHg TR max P.7 mmHg PA V2 max: 88.2 cm/sec Med Peak E' Navi: 5.4 cm/sec PA max P.1 mmHg Med E/e': 19.7 Lat Peak E' Navi: 5.2 cm/sec Lat E/e': 20.5 PI Vmax: 124.9 cm/sec Left Ventricle There is mild concentric left ventricular hypertrophy. Ejection Fraction = 55-60%. The transmitral sp ectral Doppler flow pattern is normal for age. Right Ventricle The right ventricle is normal in size and function. Atria Normal left and right atrial size and function. Mitral Valve There is mild mitral annular calcification. There is no mitral valve stenosis. There is mild mitral regurgitation. Tricuspid Valve The tricuspid valve is normal in structure and function. There is mild tricuspid regurgitation. Right ventricular systolic pressure is elevated at 30-40mmHg. Aortic Valve There is mild aortic sclerosis.;. No hemodynamically significant valvular aortic stenosis. Mild aorti c regurgitation. Pulmonic Valve The pulmonic valve is not well seen, but is grossly normal. There is no pulmonic valvular stenosis. T race pulmonic valvular regurgitation. Great Vessels Moderately dilated ascending aorta. Pericardium/Pleura There is no pericardial effusion. Interpretation Summary There is mild concentric left ventricular hypertrophy. Ejection Fraction = 55-60%. The right ventricle is normal in size and function. There is mild mitral annular calcification. There is mild mitral regurgitation. There is mild tricuspid regurgitation. Right ventricular systolic pressure is elevated at 30-40mmHg. There is mild aortic sclerosis.; Mild aortic regurgitation. Moderately dilated ascending aorta. There is no pericardial effusion. MD Simental *Vaishali 07/14/2019 10:53 AM
[2019-07-14] MEDS: PANTOPRAZOLE SODIUM 40 MG VIAL IVPUSH SCH (11:15)
--- NOTE | 2019-07-14 11:46 | EKG ---
Test Reason : Blood Pressure : / mmHG Vent. Rate : 055 BPM Atrial Rate : 055 BPM P-R Int : 144 ms QRS Dur : 076 ms QT Int : 478 ms P-R-T Axes : 000 -09 150 degrees QTc Int : 457 ms SINUS BRADYCARDIA LEFT VENTRICULAR HYPERTROPHY WITH REPOLARIZATION ABNORMALITY ABNORMAL ECG WHEN COMPARED WITH ECG OF 27-MAY-2017 10:29, CO INTERVAL HAS DECREASED T WAVE INVERSION MORE EVIDENT IN ANTEROLATERAL LEADS Confirmed by CARY ALFARO MD ([id number]) on 07/14/2019 11:46:11 AM Referred By: Confirmed By:CARY ALFARO MD
[2019-07-14] MEDS: CEFTRIAXONE 2 GM in DEXTROSE 5%-WATER 100 ML IVPB SCH (12:25)
--- NOTE | 2019-07-14 16:01 | PN ---
Physical Exam: SUBJECTIVE: Patient seen and examined at the bedside. Patient stated that she feels fine if she does not eat, but when she does eat she endorses RUQ pain. Lying in bed comfortably. Denies cp, sob, fever, chills, n/v/c/d, headaches, dizziness, lightheadness, numbness, tingling, weakness. OBJECTIVE: Vital Signs Period Temp Pulse Resp BP Sys/Cortez Pulse Ox Last 24 Hr 97.5 F-98.0 F 52-69 16-20 114-145/44-67 95-98 GENERAL: Awake, alert, and fully oriented, in no acute distress. [place]ic speaking. HEAD: Normal with no signs of trauma. EYES: Pupils equal, round and reactive to light, extraocular movements intact, sclera anicteric, conjunctiva clear. EARS, NOSE, THROAT: Oropharynx clear without exudates. Moist mucous membranes. NECK: Normal range of motion, supple without lymphadenopathy, JVD. LUNGS: Breath sounds equal, clear to auscultation bilaterally. No wheezes, and no crackles. No accessory muscle use. HEART: Regular rate and rhythm, normal S1 and S2 without murmur, rub. ABDOMEN: Soft, mildly tender to palpation in RUQ, Renner's negative, not distended, normoactive bowel sounds, no guarding, no rebound, no masses. MUSCULOSKELETAL: Normal range of motion at all joints. No bony deformities or tenderness. UPPER EXTREMITIES: 2+ pulses, warm, well-perfused. No cyanosis. No clubbing. No peripheral edema. LOWER EXTREMITIES: 2+ pulses, warm, well-perfused. No calf tenderness. No peripheral edema. NEUROLOGICAL: Cranial nerves II-XII intact. 5/5 muscle strength bilaterally upper and lower extremities. PSYCHIATRIC: Cooperative. Good eye contact. Appropriate mood and affect. SKIN: Warm, dry, normal turgor, no rashes or lesions noted, normal capillary refill. Laboratory Results - last 24 hr 07/13/19 07/14/19 07/14/19 22:41 05:30 05:30 WBC 4.3 RBC 4.65 Hgb 13.2 Hct 39.8 MCV 85.5 MCH 28.4 MCHC 33.2 RDW 13.2 Plt Count 161 MPV 9.1 Absolute Neuts (auto) 2.5 Neutrophils % 59.4 D Lymphocytes % 31.1 D Monocytes % 7.7 Eosinophils % 0.9 D Basophils % 0.9 Nucleated RBC % 0 PT with INR 11.70 INR 0.99 PTT (Actin FS) 37.2 H Sodium Potassium Chloride Carbon Dioxide Anion Gap BUN Creatinine Est GFR (CKD-EPI)AfAm Est GFR (CKD-EPI)NonAf POC Glucometer Random Glucose Calcium Phosphorus Magnesium Total Bilirubin Direct Bilirubin 0.3 H AST ALT Alkaline Phosphatase Troponin I < 0.02 Total Protein Albumin 07/14/19 07/14/19 07/14/19 05:30 05:30 13:25 WBC RBC Hgb Hct MCV MCH MCHC RDW Plt Count MPV Absolute Neuts (auto) Neutrophils % Lymphocytes % Monocytes % Eosinophils % Basophils % Nucleated RBC % PT with INR INR PTT (Actin FS) Sodium 144 Potassium 3.2 L Chloride 111 H Carbon Dioxide 29 Anion Gap 5 L BUN 9.2 Creatinine 0.7 Est GFR (CKD-EPI)AfAm 97.54 Est GFR (CKD-EPI)NonAf 84.16 POC Glucometer 106 Random Glucose 128 H Calcium 8.3 L Phosphorus 2.8 Magnesium 2.1 Total Bilirubin 1.2 H Direct Bilirubin 0.2 AST 26 ALT 98 H Alkaline Phosphatase 58 Troponin I Total Protein 5.8 L Albumin 3.2 L Active Medications Generic Name Dose Route Start Last Admin Trade Name Freq PRN Reason Stop Dose Admin Enoxaparin Sodium 60 mg 07/13/19 22:00 07/13/19 22:44 Lovenox - SQ 60 mg BID ADELFO Administration Ceftriaxone Sodium 2 gm/ 100 mls @ 200 mls/hr 07/14/19 10:00 07/14/19 12:25 Dextrose IVPB 200 mls/hr DAILY ADELFO Administration Protocol Metronidazole 500 mg in 100 mls @ 100 mls/hr 07/13/19 18:45 07/14/19 10:50 Flagyl 500mg Premixed Ivpb - IVPB 100 mls/hr Q8H-IV ADELFO Administration Potassium Chloride/Dextrose/Sod Cl 10 meq in 1,000 mls @ 75 mls/hr 07/14/19 10 :45 07/14/19 14:39 D5-1/2ns+10 Meq Kcl - IV 07/15/19 00:04 75 mls/hr ASDIR ADELFO Administration Metoprolol Succinate 25 mg 07/14/19 10:00 07/14/19 09:49 Toprol Xl - PO Not Given DAILY ADELFO Pantoprazole Sodium 40 mg 07/14/19 10:00 07/14/19 11:15 Protonix Iv IVPUSH 40 mg DAILY ADELFO Administration ASSESSMENT/PLAN: Grazyna Portillo is a 74 year old female (Greenlandic speaking) with a past medical history of Afib on Eliquis, HTN, HLD, BRENNA adenocarcinoma s/p lobectomy 2017 who presented to [facility] due to 3 days of progressively worsening right sided abdominal pain admitted for cholelithiasis. Abdominal pain 2/2 Cholelithiasis - Gallbladder U/S---Slightly Coarse echotexture of liver. Small gallbladder sludge and likely small stones with significant thickening of its wall, adjacent to gallbladder neck region where measuring 11 mm thickness. Further evaluation is needed. No pericholecystic free fluid is present. Negative Sono murphys. - Bili, AST, ALT: 1.2, direct bili 0.2. AST 26, ALT 98, improving, monitor LFTs - Ceftriaxone and Flagyl - Surgery on board-Dr Floyd, f/u on recs for surgery timing - Lovenox 1 mg/kg BID while planning for surgery - NPO - Pantoprazole - GI Consult, recs appreciated - MRCP, possible ERCP pending results R/O ACS - EKG with new T wave inversions - 2x troponins negative, patient no longer complaining of chest pain - echo showing EF 55-60%, elevated RV systolic pressure, moderately dilated ascending aorta, mild regurg in mitral, aortic, tricuspid valves - cardiology consulted, recs appreciated - as per cardiology, patient cleared for surgery from cardio standpoint AFIB - Will switch Eliquis to Lovenox 1mg/kg BID HLD - Hold statin in light of elevated liver enzymes HTN - Continue Metoprolol. Hold Norvasc and HCTZ FEN - D51/2 NS w/ 10 mEQ KCL for 1 bag, afterwards D5 1/2 NS - Continue to monitor electrolytes and replete as necessary, hypokalemia noted and repleted - NPO DVT ppx - Lovenox 1mg/kg BID Dispo - continue to monitor on Telemetry Visit type - Emergency Visit Emergency Visit: Yes ED Registration Date: 07/13/19 Care time: The patient presented to the Emergency Department on the above date and was hospitalized for further evaluation of their emergent condition. - New Patient This patient is new to me today: Yes Date on this admission: 07/14/19 - Critical Care Critical Care patient: No
[2019-07-14] MEDS: DEXTROSE 5%-0.45% SALINE 1,000 ML IV SCH (17:00)
--- NOTE | 2019-07-14 17:22 | CON.GI ---
Consult Consult Specialty:: GI Referred by:: Hospitalist Service Reason for Consultation:: Abdominal pain - History of Present Illness Chief Complaint: Abdominal pain History of Present Illness: Daughters were present and aided in translation as Ms. Portillo speaks predominantly Turkish. 74F admitted for evaluation of upper abdominal pain, radiating to the back along with nausea and dizziness. prior to this, she was experiencing episodes of post prandial pain 30mins to 2 hours after eating. She described chills during these episodes but no fever. There has been no unintentional weight loss. She has had a colonosocpy in her 50's. Worrk-up included a CT scan that revealed elevated transaminases and mildly elevated bilirubin. the elevated transaminases have improved. abdominal US revealed small gallstones, sludge and significantly thickened gallbladder wall. The CBD was 7mm. Currently pain is improved and has been started on ceftriaxone and flagyl. - History Source History Provided By: Family Member, Medical Record - Past Medical History Cardio/Vascular: Yes: AFIB, HTN, Other (4.8cm thoracic aortic aneurysm) Heme/Onc: Yes: Cancer (Left lung ca (small cell)) Musculoskeletal: Yes: Osteoarthritis - Past Surgical History Past Surgical History: Yes: Cataract Removal, Hysterectomy (DHAVAL/BSO) Additional Surgical History: curative left upper lobectomy, dental implants - Alcohol/Substance Use Hx Alcohol Use: Yes (occasional beer) History of Substance Use: reports: None - Smoking History Smoking history: Never smoked Have you smoked in the past 12 months: No - Social History Usual Living Arrangement: Alone Occupation: retired cook Place of : Other ([place]) Came to [place] (year[place] 1975 History of Recent Travel: No Home Medications - Allergies Allergies/Adverse Reactions: Allergies Allergy/AdvReac Type Severity Reaction Status Date / Time No Known Drug Allergies Allergy Verified 05/05/17 19:50 - Home Medications Home Medications: Ambulatory Orders Apixaban [Eliquis] 5 mg PO BID 05/05/17 Losartan Potassium 100 mg PO DAILY 05/05/17 Metoprolol Succinate [Toprol Xl -] 25 mg PO DAILY 05/05/17 Simvastatin 20 mg PO HS 05/05/17 Amlodipine Besylate 5 mg PO HS 07/13/19 Hydrochlorothiazide [Hctz -] 12.5 mg PO DAILY 07/13/19 Oxybutynin Chloride [Ditropan Xl] 5 mg PO HS 07/13/19 Family Medical History Other Family History: Mother: : 40's: stomach ca. Father: : 40's: lung disorder. 4 brothers, 1 sister: sister w/ thyroid cancer. 2 daughters: healthy. No family history of colorectal cancer or other GI malignancy Review of Systems - Review of Systems Constitutional: reports: Chills. denies: Fever Cardiovascular: denies: Chest Pain Respiratory: denies: Cough Gastrointestinal: reports: Abdominal Pain. denies: Nausea, Rectal Bleeding Physical Exam-GI Vital Signs: Vital Signs Temperature 98.7 F 07/14/19 16:39 Pulse Rate 62 07/14/19 16:39 Respiratory Rate 18 07/14/19 16:39 Blood Pressure 152/83 07/14/19 16:39 O2 Sat by Pulse Oximetry (%) 95 07/14/19 14:35 Constitutional: Yes: Calm Eyes: No: Sclera Icterus Cardiovascular: Yes: Regular Rate and Rhythm, Murmur (2/6 systolic murmur) Respiratory: Yes: CTA Bilaterally Gastrointestinal Inspection: Yes: Distention, Scars (small periumbilical scar) ...Auscultate: Yes: Normoactive Bowel Sounds ...Palpate: Yes: Soft, Tenderness (TTP RUQ. No guarding/rebound or rick's). No: Hepatomegaly, Splenomegaly ...Percussion: No: Tympanitic Edema: No (No LE edema) Labs: CBC, BMP 07/14/19 05:30 07/14/19 05:30 INR, PTT INR 0.99 (0.83-1.09) 07/14/19 05:30 Hepatic Panel Total Bilirubin 1.2 mg/dL (0.2-1) H 07/14/19 05:30 Direct Bilirubin 0.2 mg/dL (0.0-0.2) 07/14/19 05:30 AST 26 U/L (15-37) 07/14/19 05:30 ALT 98 U/L (13-61) H 07/14/19 05:30 Alkaline Phosphatase 58 U/L (45-117) 07/14/19 05:30 Albumin 3.2 g/dl (3.4-5.0) L 07/14/19 05:30 Imaging - Results Ultrasound: Report Reviewed Problem List - Problems (1) Cholecystitis Assessment/Plan: By description of previous pain episodes, suspect they were episodes of biliary colic that have progressed to acute calculous cholecystitis. CBD was 7mm and LFTs's mildly elevated. ? passed stones IV Abx. Consider less cholestatic regimen so as not to confound LFTs NPO MRCP was ordered by Dr. Floyd Monitor LFTS Discussed possibility of ERCP with Ms. Portillo's daughters pending results of MRCP and liver chemistry pattern. Discussed potential risks of the procedure like but not limited to bleeding, perforation requiring surgery to repair, infection , sedation medication effects, pancreatitis all of which could be potentially life threatening. Dr. Corea covering the weekend Code(s): K81.9 - CHOLECYSTITIS, UNSPECIFIED
--- NOTE | 2019-07-14 18:53 | PN ---
Teaching Attending Note Name of Resident: Anthony Hagan ATTENDING PHYSICIAN STATEMENT I saw and evaluated the patient. I reviewed the resident's note and discussed the case with the resident. I agree with the resident's findings and plan as documented. SUBJECTIVE: Complains of RUQ/Epigastric pain on eating with asociated nausea. No vomiting. No fever/chills. No diarrhea. OBJECTIVE: Afebrile, Hemodynamically Stable. Last Vital Signs Temp Pulse Resp BP Pulse Ox 98.7 F 62 18 152/83 97 07/14/19 16:39 07/14/19 16:39 07/14/19 16:39 07/14/19 16:39 07/14/19 17:20 HEENT - Atraumatic, Normocephalic. Heart - S1, S2, RRR Lungs - clear to auscultation Abdomen - soft, tender RUQ Extremities - no calf tenderness. Laboratory Results - last 24 hr 07/13/19 07/14/19 07/14/19 22:41 05:30 05:30 WBC 4.3 RBC 4.65 Hgb 13.2 Hct 39.8 MCV 85.5 MCH 28.4 MCHC 33.2 RDW 13.2 Plt Count 161 MPV 9.1 Absolute Neuts (auto) 2.5 Neutrophils % 59.4 D Lymphocytes % 31.1 D Monocytes % 7.7 Eosinophils % 0.9 D Basophils % 0.9 Nucleated RBC % 0 PT with INR 11.70 INR 0.99 PTT (Actin FS) 37.2 H Sodium Potassium Chloride Carbon Dioxide Anion Gap BUN Creatinine Est GFR (CKD-EPI)AfAm Est GFR (CKD-EPI)NonAf POC Glucometer Random Glucose Calcium Phosphorus Magnesium Total Bilirubin Direct Bilirubin 0.3 H AST ALT Alkaline Phosphatase Troponin I < 0.02 Total Protein Albumin 07/14/19 07/14/19 07/14/19 05:30 05:30 13:25 WBC RBC Hgb Hct MCV MCH MCHC RDW Plt Count MPV Absolute Neuts (auto) Neutrophils % Lymphocytes % Monocytes % Eosinophils % Basophils % Nucleated RBC % PT with INR INR PTT (Actin FS) Sodium 144 Potassium 3.2 L Chloride 111 H Carbon Dioxide 29 Anion Gap 5 L BUN 9.2 Creatinine 0.7 Est GFR (CKD-EPI)AfAm 97.54 Est GFR (CKD-EPI)NonAf 84.16 POC Glucometer 106 Random Glucose 128 H Calcium 8.3 L Phosphorus 2.8 Magnesium 2.1 Total Bilirubin 1.2 H Direct Bilirubin 0.2 AST 26 ALT 98 H Alkaline Phosphatase 58 Troponin I Total Protein 5.8 L Albumin 3.2 L Current Medications Generic Name Dose Route Start Last Admin Trade Name Minhq PRN Reason Stop Dose Admin Enoxaparin Sodium 60 mg 07/13/19 22:00 07/13/19 22:44 Lovenox - SQ 60 mg BID ADELFO Administration Ceftriaxone Sodium 2 gm/ 100 mls @ 200 mls/hr 07/14/19 10:00 07/14/19 12:25 Dextrose IVPB 200 mls/hr DAILY ADELFO Administration Protocol Metronidazole 500 mg in 100 mls @ 100 mls/hr 07/13/19 18:45 07/14/19 18:29 Flagyl 500mg Premixed Ivpb - IVPB 100 mls/hr Q8H-IV ADELFO Administration Dextrose/Sodium Chloride 1,000 mls @ 75 mls/hr 07/14/19 16:15 07/14/19 17:00 D5-1/2ns - IV 75 mls/hr ASDIR ADELFO Administration Metoprolol Succinate 25 mg 07/14/19 10:00 07/14/19 09:49 Toprol Xl - PO Not Given DAILY ADELFO Pantoprazole Sodium 40 mg 07/14/19 10:00 07/14/19 11:15 Protonix Iv IVPUSH 40 mg DAILY ADELFO Administration Home Medications Medication Instructions Recorded Apixaban [Eliquis] 5 mg PO BID 05/05/17 Losartan Potassium 100 mg PO DAILY 05/05/17 Metoprolol Succinate [Toprol Xl -] 25 mg PO DAILY 05/05/17 Simvastatin 20 mg PO HS 05/05/17 Amlodipine Besylate 5 mg PO HS 07/13/19 Hydrochlorothiazide [Hctz -] 12.5 mg PO DAILY 07/13/19 Oxybutynin Chloride [Ditropan Xl] 5 mg PO HS 07/13/19 ASSESSMENT/PLAN: 74 year old female with history of Atrial Fibrillation on Eliquis, HTN, HLD, 4.8cm thoracic aortic aneurysm (follow by Dr. Toro), BRENNA Adenoca s/p lobectomy 2016, admitted with 3 day history of epigastric abdominal pain, worse after meals. 1. Biliary Cholic Abdominal US - thickened GB with small Gallstones. Afebrile. Mild elevation in AST - Statin held. Surgery consulted - ordered MRCP. GI Following. Currently NPO/IV fluids, IV Ceftriaxone/Flagyl. Monitor LFTs. No cardiac contraindication to Surgery as per Cardiology. 2. HTN - continue Metoprolol. Norvasc, Losartan held. 3. HLD - Statin held due to mild elevation in transaminases. 4. Atrial fibrillation on Eliquis - now held. AC with Lovenox pending Surgery decision re: possible cholecystectomy. 5. BRENNA Adenocarcinoma s/p lobectomy 2017 GI Px - PPI
--- NOTE | 2019-07-14 22:56 | PN ---
Progress Note (short form) - Note Progress Note: Attending Surgeon For lap kristen possible open 07/17/19 pending ongoing w/u; will d/w patient via family members. Adelso Floyd MD FACS
--- NOTE | 2019-07-15 07:33 | PN.GI ---
GI Progress Note Subjective: ABDOMINAL PAIN RUQ WITH PO INTAKE - NO OTHER COMPLAINTS - Objective Vital Signs: Vital Signs Temperature 98.0 F 07/15/19 05:54 Pulse Rate 60 07/15/19 05:54 Respiratory Rate 18 07/15/19 05:54 Blood Pressure 133/76 07/15/19 05:54 O2 Sat by Pulse Oximetry (%) 97 07/14/19 21:00 Constitutional: Well Nourished, No Distress Eyes: Yes: WNL HENT: Yes: WNL Neck: Yes: WNL Cardiovascular: Yes: WNL Respiratory: Yes: WNL, Regular, CTA Bilaterally Gastrointestinal Inspection: Yes: WNL ...Auscultate: Yes: Normoactive Bowel Sounds, Other (RUQ TENDERNESS TO DEEP PALPATION - NO REBOUND OR GUARDING) Extremities: Yes: WNL Edema: No Labs: CBC, BMP 07/14/19 05:30 07/14/19 05:30 INR, PTT INR 0.99 (0.83-1.09) 07/14/19 05:30 Problem List - Problems (1) Abdominal pain Assessment/Plan: ABDOMINAL PAIN - BILIARY ORIGIN - CHRONIC CHOLECYSTITIS. - NPO / IVF - ABX - SURGERY EVALUATION Code(s): R10.9 - UNSPECIFIED ABDOMINAL PAIN Qualifiers: Abdominal location: epigastric Qualified Code(s): R10.13 - Epigastric pain (2) Cholecystitis Code(s): K81.9 - CHOLECYSTITIS, UNSPECIFIED
[2019-07-15 08:04] LABS: HEMATOCRIT 40.1 % (32.4-45.2); HEMOGLOBIN 13.4 GM/dL (10.7-15.3); MCH 28.4 pg (25.7-33.7); MCHC 33.4 g/dl (32.0-36.0); MEAN CELL VOLUME 85.2 fl (80-96); MEAN PLT VOLUME 9.2 fl (7.5-11.1); PLATELET COUNT 171 K/MM3 (134-434); RDW 13.3 % (11.6-15.6); WHITE BLOOD COUNT 3.6 K/mm3 (4.0-10.0)
[2019-07-15 08:24] LABS: ALBUMIN 3.2 g/dl (3.4-5.0); BLOOD UREA NITROGEN 5.8 mg/dL (7-18); CALCIUM 8.7 mg/dL (8.5-10.1); CREATININE 0.6 mg/dL (0.55-1.3); POTASSIUM 3.6 mmol/L (3.5-5.1); TOT PROT 6.1 g/dl (6.4-8.2)
[2019-07-15] MEDS ORDERED: DEXTROSE 5%-WATER 100 ML IVPB ONE (08:26)
[2019-07-15] MEDS: ENOXAPARIN NA (PORCINE) 60 MG/0.6 ML DISP.SYRIN SQ SCH ×2 (09:25→23:22)
[2019-07-15] MEDS: LOSARTAN POTASSIUM 50 MG TABLET (FP) PO SCH (09:25)
[2019-07-15] MEDS: metoPROLOL SUCCINATE 25 MG TAB.SR.24H (FP) PO SCH (09:27)
[2019-07-15] MEDS: CEFTRIAXONE 2 GM in DEXTROSE 5%-WATER 100 ML IVPB SCH (09:27)
[2019-07-15] MEDS: PANTOPRAZOLE SODIUM 40 MG VIAL IVPUSH SCH (09:27)
--- NOTE | 2019-07-15 09:31 | PN ---
Progress Note, Physician Chief Complaint: no cp, sob, palps Daughters at bedside to translate. TELE: NSR, NSST History of Present Illness: post prandial RUQ pain - Current Medication List Current Medications: Active Medications Amlodipine Besylate (Norvasc -) 5 mg PO HS [facility] Atorvastatin Calcium (Lipitor -) 10 mg PO HS [facility] Enoxaparin Sodium (Lovenox -) 60 mg SQ BID [facility] Last Admin: 07/15/19 09:25 Dose: 60 mg Hydrochlorothiazide (Hctz -) 12.5 mg PO DAILY [facility] Last Admin: 07/15/19 09:25 Dose: 12.5 mg Ceftriaxone Sodium 2 gm/ (Dextrose) 100 mls @ 200 mls/hr IVPB DAILY [facility]; Protocol Last Admin: 07/15/19 09:27 Dose: 200 mls/hr Metronidazole (Flagyl 500mg Premixed Ivpb -) 500 mg in 100 mls @ 100 mls/hr IVPB Q8H-IV [facility] Last Admin: 07/15/19 09:27 Dose: 100 mls/hr Dextrose/Sodium Chloride (D5-1/2ns -) 1,000 mls @ 75 mls/hr IV ASDIR [facility] Last Admin: 07/14/19 17:00 Dose: 75 mls/hr Losartan Potassium (Cozaar -) 100 mg PO DAILY [facility] Last Admin: 07/15/19 09:25 Dose: 100 mg Metoprolol Succinate (Toprol Xl -) 25 mg PO DAILY [facility] Last Admin: 07/15/19 09:27 Dose: 25 mg Non-Formulary Medication (Oxybutynin Chloride [Ditropan Xl]) 5 mg PO HS [facility] Pantoprazole Sodium (Protonix Iv) 40 mg IVPUSH DAILY [facility] Last Admin: 07/15/19 09:27 Dose: 40 mg - Objective Vital Signs: Vital Signs Temperature 98.0 F 07/15/19 08:59 Pulse Rate 59 L 07/15/19 08:59 Respiratory Rate 18 07/15/19 08:59 Blood Pressure 143/84 07/15/19 08:59 O2 Sat by Pulse Oximetry (%) 97 07/15/19 08:59 Constitutional: Yes: No Distress Eyes: Yes: Conjunctiva Clear Cardiovascular: Yes: Regular Rate and Rhythm Respiratory: Yes: CTA Bilaterally Gastrointestinal: Yes: Soft (, + RUQ pain on deep palpation) Edema: No Peripheral Pulses WNL: Yes Neurological: Yes: Alert, Oriented ...Motor Strength: WNL Labs: CBC, BMP 07/15/19 06:25 07/15/19 06:25 INR, PTT INR 0.99 (0.83-1.09) 07/14/19 05:30 Laboratory Tests 07/15/19 06:25 AST 19 ALT 73 H Alkaline Phosphatase 57 Assessment/Plan Echo: Moderately dilated asc aorta (known), normal LVEF, no sig valve disease. IMP: 1. Biliary colic/cholecystitis. 2. PAF on AC 3. Chronic 4.8cm thoracic aortic aneurysm under surveillance 4. HTN 5. HLD 6. Hx Lung Ca, Lobectomy REC: 1. Work up and treatment of biliary colic as per PMD/GI/Surgery; MRI read pending. 2. If urgent cholecystectomy is necessary, there are no absolute cardiac contraindications to surgery (no , euvolemic, controlled BP, no unstable anginal sx). Echo showed normal LVEF w/ no significant valve disease. 3. Spoke to Dr. aPtricio Toro (her primary fuel injection servicer) yesterday; there has not been a stress test in the last 2 years. He agreed with my recommendations above. 4. Continue home meds; now on Lovenox in event surgery required. 5. Family contemplating transfer to [facility], employment case manager alerted and she will discuss the options with family.
--- NOTE | 2019-07-15 09:58 | PN ---
Progress Note (short form) - Note Progress Note: Attending Surgeon No c/o ?; patients family at the bedside VSS AF abdo-soft and non tender bili now normal and MRCP normal IMP: biliary colic/acute cholecystitis PLAN: Trial of clear liquid diet and continue present tx. and as outlined by the PA note from 07/14/19; for lap kristen possible open 07/17/19; r/b/t/a's d/w the patients family w/ the use of diagrams. Adelso Floyd MD FACS
[2019-07-15] MEDS ORDERED: HYDROCHLOROTHIAZIDE 12.5 MG CAPSULE (FP) PO SCH (10:00)
[2019-07-15] MEDS ORDERED: PATIENT'S OWN MEDICATION (NON-FORMULARY) (Losartan Potassium [Losartan Potassium] 100 MG) PO SCH (10:00)
--- NOTE | 2019-07-15 12:15 | PN ---
Physical Exam: SUBJECTIVE: Patient seen and examined at the bedside. Stated she was doing well. Noted that she feels good when she does not eat, but has pain when she does eat. Denied cp, sob, n/v/c/d, fever, chills, numbness, tingling, headaches , dizziness, lightheadedness. OBJECTIVE: Vital Signs Period Temp Pulse Resp BP Sys/Cortez Pulse Ox Last 24 Hr 97.8 F-98.9 F 56-68 16-18 123-152/47-90 95-97 GENERAL: Awake, alert, and fully oriented, in no acute distress. Slovenian speaking. HEAD: Normal with no signs of trauma. EYES: Pupils equal, round and reactive to light, extraocular movements intact, sclera anicteric, conjunctiva clear. EARS, NOSE, THROAT: Oropharynx clear without exudates. Moist mucous membranes. NECK: Normal range of motion, supple without lymphadenopathy, JVD. LUNGS: Breath sounds equal, clear to auscultation bilaterally. No wheezes, and no crackles. No accessory muscle use. HEART: Regular rate and rhythm, normal S1 and S2 without murmur, rub. ABDOMEN: Soft, mildly tender to palpation in RUQ, Renner's negative, not distended, normoactive bowel sounds, no guarding, no rebound, no masses. MUSCULOSKELETAL: Normal range of motion at all joints. No bony deformities or tenderness. UPPER EXTREMITIES: 2+ pulses, warm, well-perfused. No cyanosis. No clubbing. No peripheral edema. LOWER EXTREMITIES: 2+ pulses, warm, well-perfused. No calf tenderness. No peripheral edema. NEUROLOGICAL: Cranial nerves II-XII intact. 5/5 muscle strength bilaterally upper and lower extremities. PSYCHIATRIC: Cooperative. Good eye contact. Appropriate mood and affect. SKIN: Warm, dry, normal turgor, no rashes or lesions noted, normal capillary refill. Laboratory Results - last 24 hr 07/14/19 07/15/19 07/15/19 13:25 06:25 06:25 WBC 3.6 L RBC 4.70 Hgb 13.4 Hct 40.1 MCV 85.2 MCH 28.4 MCHC 33.4 RDW 13.3 Plt Count 171 MPV 9.2 Sodium 145 Potassium 3.6 Chloride 109 H Carbon Dioxide 29 Anion Gap 7 L BUN 5.8 L Creatinine 0.6 Est GFR (CKD-EPI)AfAm 102.62 Est GFR (CKD-EPI)NonAf 88.54 POC Glucometer 106 Random Glucose 121 H Calcium 8.7 Total Bilirubin 1.0 AST 19 ALT 73 H Alkaline Phosphatase 57 Total Protein 6.1 L Albumin 3.2 L Active Medications Generic Name Dose Route Start Last Admin Trade Name Freq PRN Reason Stop Dose Admin Amlodipine Besylate 5 mg 07/15/19 22:00 Norvasc - PO HS ADELFO Atorvastatin Calcium 10 mg 07/15/19 22:00 Lipitor - PO HS ADELFO Enoxaparin Sodium 60 mg 07/13/19 22:00 07/15/19 09:25 Lovenox - SQ 60 mg BID ADELFO Administration Hydrochlorothiazide 12.5 mg 07/15/19 10:00 07/15/19 09:25 Hctz - PO 12.5 mg DAILY ADELFO Administration Ceftriaxone Sodium 2 gm/ 100 mls @ 200 mls/hr 07/14/19 10:00 07/15/19 09:27 Dextrose IVPB 200 mls/hr DAILY ADELFO Administration Protocol Metronidazole 500 mg in 100 mls @ 100 mls/hr 07/13/19 18:45 07/15/19 09:27 Flagyl 500mg Premixed Ivpb - IVPB 100 mls/hr Q8H-IV ADELFO Administration Dextrose/Sodium Chloride 1,000 mls @ 75 mls/hr 07/14/19 16:15 07/14/19 17:00 D5-1/2ns - IV 75 mls/hr ASDIR ADELFO Administration Losartan Potassium 100 mg 07/15/19 10:00 07/15/19 09:25 Cozaar - PO 100 mg DAILY ADELFO Administration Metoprolol Succinate 25 mg 07/14/19 10:00 07/15/19 09:27 Toprol Xl - PO 25 mg DAILY ADELFO Administration Non-Formulary Medication 5 mg 07/15/19 22:00 Oxybutynin Chloride [Ditropan Xl] PO HS [facility] Pantoprazole Sodium 40 mg 07/14/19 10:00 07/15/19 09:27 Protonix Iv IVPUSH 40 mg DAILY ADELFO Administration ASSESSMENT/PLAN: Grazyna Portillo is a 74 year old female (Slovenian speaking) with a past medical history of Afib on Eliquis, HTN, HLD, BRENNA adenocarcinoma s/p lobectomy 2017 who presented to [facility] due to 3 days of progressively worsening right sided abdominal pain admitted for cholelithiasis. Abdominal pain 2/2 Cholelithiasis - Gallbladder U/S---Slightly Coarse echotexture of liver. Small gallbladder sludge and likely small stones with significant thickening of its wall, adjacent to gallbladder neck region where measuring 11 mm thickness. Further evaluation is needed. No pericholecystic free fluid is present. Negative Sono murphys. - Bili, AST, ALT: 1.2, direct bili 0.2. AST 57, ALT 73, improving, monitor LFTs - Ceftriaxone and Flagyl - Surgery on board-Dr Floyd, planning on surgery for Wednesday, family requesting second opinion, Dr. Markham consulted - Lovenox 1 mg/kg BID while planning for surgery - clear liquid diet - Pantoprazole - GI Consult, recs appreciated - MRCP showing mild thickening of the gallbladder wall, no dilation of common pancreatic and common bile duct, cystic lesion in the R lobe of the liver - will require outpatient GI follow up R/O ACS - EKG with new T wave inversions - 2x troponins negative, patient no longer complaining of chest pain - echo showing EF 55-60%, elevated RV systolic pressure, moderately dilated ascending aorta, mild regurg in mitral, aortic, tricuspid valves - cardiology consulted, recs appreciated - as per cardiology, patient cleared for surgery from cardio standpoint - no stress test in last 2 years AFIB - Will switch Eliquis to Lovenox 1mg/kg BID HLD - Hold statin in light of elevated liver enzymes HTN - Continue Metoprolol. Hold Norvasc and HCTZ FEN - D5 1/2 NS 75cc/hr, can d/c after patient has adequate oral intake - Continue to monitor electrolytes and replete as necessary - clear liquid diet DVT ppx - Lovenox 1mg/kg BID Dispo - continue to monitor on Telemetry - family considering transfer to [facility], rn field case manager notified Visit type - Emergency Visit Emergency Visit: Yes ED Registration Date: 07/13/19 Care time: The patient presented to the Emergency Department on the above date and was hospitalized for further evaluation of their emergent condition. - New Patient This patient is new to me today: No - Critical Care Critical Care patient: No
--- NOTE | 2019-07-15 13:26 | PN ---
Teaching Attending Note Name of Resident: Anthony Hagan ATTENDING PHYSICIAN STATEMENT I saw and evaluated the patient. I reviewed the resident's note and discussed the case with the resident. I agree with the resident's findings and plan as documented. SUBJECTIVE: Complains of RUQ/Epigastric pain on eating with associated nausea. No pain at rest. No vomiting. No fever/chills. No diarrhea. OBJECTIVE: Afebrile, Hemodynamically Stable. Last Vital Signs Temp Pulse Resp BP Pulse Ox 98.0 F 59 L 18 143/84 97 07/15/19 08:59 07/15/19 08:59 07/15/19 08:59 07/15/19 08:59 07/15/19 08:59 Heart - S1, S2, RRR Lungs - clear to auscultation Abdomen - soft, tender RUQ on deep palpation. Bowel Sounds normal Extremities - no calf tenderness. Laboratory Results - last 24 hr 07/14/19 07/15/19 07/15/19 13:25 06:25 06:25 WBC 3.6 L RBC 4.70 Hgb 13.4 Hct 40.1 MCV 85.2 MCH 28.4 MCHC 33.4 RDW 13.3 Plt Count 171 MPV 9.2 Sodium 145 Potassium 3.6 Chloride 109 H Carbon Dioxide 29 Anion Gap 7 L BUN 5.8 L Creatinine 0.6 Est GFR (CKD-EPI)AfAm 102.62 Est GFR (CKD-EPI)NonAf 88.54 POC Glucometer 106 Random Glucose 121 H Calcium 8.7 Total Bilirubin 1.0 AST 19 ALT 73 H Alkaline Phosphatase 57 Total Protein 6.1 L Albumin 3.2 L Current Medications Generic Name Dose Route Start Last Admin Trade Name Minhq PRN Reason Stop Dose Admin Amlodipine Besylate 5 mg 07/15/19 22:00 Norvasc - PO HS ADELFO Atorvastatin Calcium 10 mg 07/15/19 22:00 Lipitor - PO HS ADELFO Enoxaparin Sodium 60 mg 07/13/19 22:00 07/15/19 09:25 Lovenox - SQ 60 mg BID ADELFO Administration Hydrochlorothiazide 12.5 mg 07/15/19 10:00 07/15/19 09:25 Hctz - PO 12.5 mg DAILY ADELFO Administration Ceftriaxone Sodium 2 gm/ 100 mls @ 200 mls/hr 07/14/19 10:00 07/15/19 09:27 Dextrose IVPB 200 mls/hr DAILY ADELFO Administration Protocol Metronidazole 500 mg in 100 mls @ 100 mls/hr 07/13/19 18:45 07/15/19 09:27 Flagyl 500mg Premixed Ivpb - IVPB 100 mls/hr Q8H-IV ADELFO Administration Dextrose/Sodium Chloride 1,000 mls @ 75 mls/hr 07/14/19 16:15 07/14/19 17:00 D5-1/2ns - IV 75 mls/hr ASDIR ADELFO Administration Losartan Potassium 100 mg 07/15/19 10:00 07/15/19 09:25 Cozaar - PO 100 mg DAILY ADELFO Administration Metoprolol Succinate 25 mg 07/14/19 10:00 07/15/19 09:27 Toprol Xl - PO 25 mg DAILY ADELFO Administration Non-Formulary Medication 5 mg 07/15/19 22:00 Oxybutynin Chloride [Ditropan Xl] PO HS [facility] Pantoprazole Sodium 40 mg 07/14/19 10:00 07/15/19 09:27 Protonix Iv IVPUSH 40 mg DAILY ADELFO Administration Home Medications Medication Instructions Recorded Apixaban [Eliquis] 5 mg PO BID 05/05/17 Losartan Potassium 100 mg PO DAILY 05/05/17 Metoprolol Succinate [Toprol Xl -] 25 mg PO DAILY 05/05/17 Simvastatin 20 mg PO HS 05/05/17 Amlodipine Besylate 5 mg PO HS 07/13/19 Hydrochlorothiazide [Hctz -] 12.5 mg PO DAILY 07/13/19 Oxybutynin Chloride [Ditropan Xl] 5 mg PO HS 07/13/19 ASSESSMENT/PLAN: 74 year old female with history of Atrial Fibrillation on Eliquis, HTN, HLD, 4.8cm thoracic aortic aneurysm (follow by Dr. Toro), BRENNA Adenoca s/p lobectomy 2016, admitted with 3 day history of epigastric abdominal pain, worse after meals. 1. Biliary Colic Abdominal US - thickened GB with small Gallstones. Afebrile. MRCP - mild thickening of GB wall, No CBD dilatation, Hepatic Cyst. Mild elevation in AST (improving) - Statin held. Monitor LFTs. Diet advanced to clears. Continue IV fluids, IV Ceftriaxone/Flagyl. No cardiac contraindication to Surgery as per Cardiology. Cholecystectomy planned for 07/17/[address] Floyd. Family requests second opinion. 2. UTI - Urine Cx Ecoli. On Ceftriaxone. 2. HTN - continue Metoprolol, Norvasc, Losartan. HCTZ held. 3. HLD - Statin held due to mild elevation in transaminases. 4. Atrial fibrillation on Eliquis - now held. AC with Lovenox pending Surgery/ cholecystectomy 07/17. 5. BRENNA Adenocarcinoma s/p lobectomy 2016 6. Hepatic Cyst on MRI - GI following, further recommendations per GI. GI Px - PPI
[2019-07-15] MEDS: DEXTROSE 5%-0.45% SALINE 1,000 ML IV SCH (16:58)
[2019-07-15] MEDS ORDERED: PATIENT'S OWN MEDICATION (NON-FORMULARY) (Simvastatin [Simvastatin] 20 MG) PO SCH (22:00)
[2019-07-15] MEDS ORDERED: PATIENT'S OWN MEDICATION (NON-FORMULARY) (Oxybutynin Chloride [Ditropan Xl] 5 MG) PO SCH (22:00)
[2019-07-15] MEDS: amLODIPine BESYLATE 5 MG TABLET (FP) PO SCH (23:22)
[2019-07-15] MEDS: ATORVASTATIN CA 10 MG TABLET (FP) PO SCH (23:22)
[2019-07-15] MEDS: SOLIFENACIN SUCCINATE 5 MG TAB PO SCH (23:22)
[2019-07-16] MEDS ORDERED: DEXTROSE 5%-WATER 100 ML IVPB ONE (07:55)
[2019-07-16] MEDS: metoPROLOL SUCCINATE 25 MG TAB.SR.24H (FP) PO SCH (09:21)
[2019-07-16] MEDS: ENOXAPARIN NA (PORCINE) 60 MG/0.6 ML DISP.SYRIN SQ SCH ×2 (09:33→22:12)
[2019-07-16] MEDS: CEFTRIAXONE 2 GM in DEXTROSE 5%-WATER 100 ML IVPB SCH (09:33)
[2019-07-16] MEDS: LOSARTAN POTASSIUM 50 MG TABLET (FP) PO SCH (09:34)
[2019-07-16] MEDS: PANTOPRAZOLE SODIUM 40 MG VIAL IVPUSH SCH (09:34)
--- NOTE | 2019-07-16 10:50 | PN ---
Progress Note, Physician Chief Complaint: seen and examined Daughter at bedside With daughter assistance in translation, pt denied CP, SOB or palps Tolerating clears, minimal abd pain with clears TELE: NSR, artifact. MRI: GB thickening, possible liver cyst Pt obtained second surgical opinion. Surgery planned WEDNESDAY History of Present Illness: average BP < 150/90 which is at goal for age - Current Medication List Current Medications: Active Medications Amlodipine Besylate (Norvasc -) 5 mg PO HS [facility] Last Admin: 07/15/19 23:22 Dose: 5 mg Atorvastatin Calcium (Lipitor -) 10 mg PO HS [facility] Last Admin: 07/15/19 23:22 Dose: 10 mg Enoxaparin Sodium (Lovenox -) 60 mg SQ BID [facility] Last Admin: 07/16/19 09:33 Dose: 60 mg Ceftriaxone Sodium 2 gm/ (Dextrose) 100 mls @ 200 mls/hr IVPB DAILY [facility]; Protocol Last Admin: 07/16/19 09:33 Dose: 200 mls/hr Metronidazole (Flagyl 500mg Premixed Ivpb -) 500 mg in 100 mls @ 100 mls/hr IVPB Q8H-IV [facility] Last Admin: 07/16/19 09:33 Dose: 100 mls/hr Dextrose/Sodium Chloride (D5-1/2ns -) 1,000 mls @ 75 mls/hr IV ASDIR [facility] Last Admin: 07/15/19 16:58 Dose: 75 mls/hr Losartan Potassium (Cozaar -) 100 mg PO DAILY [facility] Last Admin: 07/16/19 09:34 Dose: 100 mg Metoprolol Succinate (Toprol Xl -) 25 mg PO DAILY [facility] Last Admin: 07/15/19 09:27 Dose: 25 mg Pantoprazole Sodium (Protonix Iv) 40 mg IVPUSH DAILY [facility] Last Admin: 07/16/19 09:34 Dose: 40 mg Solifenacin (Vesicare -) 5 mg PO HS [facility] Last Admin: 07/15/19 23:22 Dose: 5 mg - Objective Vital Signs: Vital Signs Temperature 98.0 F 07/16/19 08:30 Pulse Rate 58 L 07/16/19 08:30 Respiratory Rate 20 07/16/19 08:30 Blood Pressure 147/80 07/16/19 08:30 O2 Sat by Pulse Oximetry (%) 97 07/16/19 08:30 Constitutional: Yes: No Distress, Calm Cardiovascular: Yes: Regular Rate and Rhythm Respiratory: Yes: CTA Bilaterally Gastrointestinal: Yes: Soft (no rebound or guarding) Edema: No Peripheral Pulses WNL: Yes Neurological: Yes: Alert, Oriented ...Motor Strength: WNL Labs: CBC, BMP 07/15/19 06:25 07/15/19 06:25 INR, PTT INR 0.99 (0.83-1.09) 07/14/19 05:30 - ....Imaging EKG: Image Reviewed Assessment/Plan Assessment/Plan Echo: Moderately dilated asc aorta (known), normal LVEF, no sig valve disease. IMP: 1. Biliary colic/cholecystitis. 2. PAF on AC 3. Chronic 4.8cm thoracic aortic aneurysm under surveillance 4. HTN 5. HLD 6. Hx Lung Ca, Lobectomy REC: 1. Work up and treatment of biliary colic as per PMD/GI/Surgery; cholecystectomy planned WEDNESDAY 2. Echo showed normal LVEF w/ no significant valve disease. 3. Spoke to Dr. Patricio Toro (her primary pain management nurse practitioner) Wednesday; there has not been a stress test in the last 2-3 years. Will obtain Lexiscan MPI tomorrow for further CV periop risk stratification. D/W family 4. Continue home meds; now on Lovenox to be held preop as per surgery. 5. Should receive usual BP meds on the morning of surgery with small sip of water.
--- NOTE | 2019-07-16 11:00 | PN ---
Progress Note (short form) - Note Progress Note: Attending Surgeon I have been informed the patients family requested a second opinion consultation and that Dr. Anthony Markham will be assuming surgical care of this patient. Adelso Floyd MD FACS
--- NOTE | 2019-07-16 12:23 | CONS ---
DATE OF CONSULTATION: 07/16/2019 REASON FOR CONSULTATION: Cholelithiasis, abdominal pain. BRIEF HISTORY: This is a 74-year-old female who was admitted to [facility] for severe right upper quadrant abdominal pain. She was noted on ultrasound to have gallstones and sludge with thickening of portions of her gallbladder. She had an MRCP, which showed a normal bile duct with no evidence of choledocholithiasis, also showing thickening of her gallbladder. Her liver function tests were initially minimally elevated and returned to normal. Her white blood cell count was normal and she had no fever. She takes Eliquis at home for paroxysmal atrial fibrillation, which was held, and she has been evaluated by the cardiology service for an abnormal EKG, and it is felt that she had a non-cardiac event. Her troponins were normal. Her echocardiogram has been normal. A nuclear stress test is pending. The patient denies nausea or vomiting. She states for the past year, she has had pain when she chews. Her past medical history is significant for atrial fibrillation, hypertension, lung cancer, which was treated surgically in 2017, and a thoracic abdominal aneurysm. Her past surgical history includes a thoracic lobectomy, a hysterectomy, possibly an appendectomy, and a tubal ligation. Social history is negative for alcohol, negative for tobacco. Family history is significant for a mother with stomach cancer and both of her siblings with thyroid cancer. Her last colonoscopy was 6 years ago. REVIEW OF SYSTEMS: General: Denies fatigue or malaise. Cardiac: Denies chest pain or palpitations. Respiratory: Denies shortness of breath or wheeze. Gastrointestinal: As stated in HPI. Genitourinary: Denies dysuria. Musculoskeletal: Denies joint pain but admits to knee pain. Psychiatric: Denies anxiety, depression, or hearing voices. PHYSICAL EXAMINATION: General: A well-developed, well-nourished 74-year-old female who looks her stated age. Her daughter and son-in-law are present and translating. HEENT: Her head is normocephalic. Her sclerae are anicteric. Neck: Supple. Chest: Clear. Abdomen: Soft and nontender. She has what appears to be a laparoscopic scar below her umbilicus, which she states is from the tubal ligation. She has a Pfannenstiel incision and possibly a McBurney incision. Scars are faint, and there are stretch bowden. She has no rebound, no guarding, no distention. Extremities: Trace edema. Review of her laboratory essentially unremarkable with normal liver function tests, normal white count. Her imaging is as stated in HPI. ASSESSMENT: A 74-year-old female with fatty food intolerance, presented with right upper quadrant abdominal pain radiating to her back with an abnormal gallbladder seen on ultrasound as well as MRI with gallstones and sludge. Clinically I suspect this is biliary colic with chronic cholecystitis. She was admitted. She is in the midst of a cardiac workup and she appears to be stable. Since her blood thinner has been held, I believe it is reasonable to proceed with cholecystectomy. I suspect that the patient will continue to have symptoms until she has her surgery. I discussed the case with the vendette, who plans to do a nuclear stress test. After that is done, assuming that that is clear, I will proceed with cholecystectomy. Risks and benefits of surgery have been explained to the patient as well as her family. These are including but not limited to the possibility of conversion to open, possibility of common bile duct injury, possibility of cystic duct stump bleed, possible injury to viscera, possibility of blood loss requiring blood transfusion, plus a multitude of medical risks including but not limited to cardiac, neurologic, pulmonary, and vascular complications, even . They especially understand that by holding blood thinner, that there is an increased risk of stroke. They also have been offered medical management of cholecystitis as well as ursodiol therapy, and they declined both options. I have also discussed this with the medical team, and everybody is in agreement with the plan. Continue antibiotics as perhaps this was a mild acute cholecystitis that is responding well, keep n.p.o. for anticipated surgery the midnight before, and will need to hold Lovenox at least 12 hours prior to the operation. DO TEDDY KING/[id number]
--- NOTE | 2019-07-16 13:45 | PN ---
Progress Note (short form) - Note Progress Note: SUBJECTIVE: Complains of RUQ/Epigastric pain on eating with associated nausea. No pain at rest. No vomiting. No fever/chills. No diarrhea. OBJECTIVE: Afebrile, Hemodynamically Stable. Last Vital Signs Temp Pulse Resp BP Pulse Ox 98.0 F 58 L 20 147/80 97 07/16/19 08:30 07/16/19 08:30 07/16/19 08:30 07/16/19 08:30 07/16/19 08:30 Heart - S1, S2, RRR Lungs - clear to auscultation Abdomen - soft, tender RUQ on deep palpation. Bowel Sounds normal Extremities - no calf tenderness. Current Medications Generic Name Dose Route Start Last Admin Trade Name Edna PRN Reason Stop Dose Admin Amlodipine Besylate 5 mg 07/15/19 22:00 07/15/19 23:22 Norvasc - PO 5 mg HS [facility] Administration Atorvastatin Calcium 10 mg 07/15/19 22:00 07/15/19 23:22 Lipitor - PO 10 mg HS [facility] Administration Enoxaparin Sodium 60 mg 07/13/19 22:00 07/16/19 09:33 Lovenox - SQ 60 mg BID [facility] Administration Ceftriaxone Sodium 2 gm/ 100 mls @ 200 mls/hr 07/14/19 10:00 07/16/19 09:33 Dextrose IVPB 200 mls/hr DAILY [facility] Administration Protocol Metronidazole 500 mg in 100 mls @ 100 mls/hr 07/13/19 18:45 07/16/19 09:33 Flagyl 500mg Premixed Ivpb - IVPB 100 mls/hr Q8H-IV [facility] Administration Dextrose/Sodium Chloride 1,000 mls @ 75 mls/hr 07/14/19 16:15 07/15/19 16:58 D5-1/2ns - IV 75 mls/hr ASDIR [facility] Administration Losartan Potassium 100 mg 07/15/19 10:00 07/16/19 09:34 Cozaar - PO 100 mg DAILY [facility] Administration Metoprolol Succinate 25 mg 07/14/19 10:00 07/15/19 09:27 Toprol Xl - PO 25 mg DAILY [facility] Administration Pantoprazole Sodium 40 mg 07/14/19 10:00 07/16/19 09:34 Protonix Iv IVPUSH 40 mg DAILY [facility] Administration Solifenacin 5 mg 07/15/19 22:00 07/15/19 23:22 Vesicare - PO 5 mg HS [facility] Administration Home Medications Medication Instructions Recorded Apixaban [Eliquis] 5 mg PO BID 05/05/17 Losartan Potassium 100 mg PO DAILY 05/05/17 Metoprolol Succinate [Toprol Xl -] 25 mg PO DAILY 05/05/17 Simvastatin 20 mg PO HS 05/05/17 Amlodipine Besylate 5 mg PO HS 07/13/19 Hydrochlorothiazide [Hctz -] 12.5 mg PO DAILY 07/13/19 Oxybutynin Chloride [Ditropan Xl] 5 mg PO HS 07/13/19 ASSESSMENT/PLAN: 74 year old female with history of Atrial Fibrillation on Eliquis, HTN, HLD, 4.8cm thoracic aortic aneurysm (follow by Dr. Toro), BRENNA Adenoca s/p lobectomy 2016, admitted with 3 day history of epigastric abdominal pain, worse after meals. 1. Biliary Colic Abdominal US - thickened GB with small Gallstones. Afebrile. MRCP - mild thickening of GB wall, No CBD dilatation, Hepatic Cyst. Mild elevation in AST (improving) - Statin held. Monitor LFTs. Tolerating clears - low fat diet as per Surgery (discussed with Dr. Markham). Continue IV fluids, IV Ceftriaxone/Flagyl. Seen by Cardiology for risk stratification/optmization - for Stress Test/ Lexiscan MPI 09/17/18. Cholecystectomy now rescheduled for 07/18/[address] Markham. 2. UTI - Urine Cx Ecoli. On Ceftriaxone. 2. HTN - continue Metoprolol, Norvasc, Losartan. HCTZ held. 3. HLD - Statin held due to mild elevation in transaminases. 4. Atrial fibrillation on Eliquis - now held. AC with Lovenox pending Surgery/ cholecystectomy 07/18. Lovenox to be held 07/17. 5. BRENNA Adenocarcinoma s/p lobectomy 2016 6. Hepatic Cyst on MRI - GI following, further recommendations per GI. 7. TAA 4.8cm, under surveillance as per Cardio. GI Px - PPI DVT Px - on Lovenox now, usually on Eliquis for PAF Visit type - Emergency Visit Emergency Visit: Yes ED Registration Date: 07/13/19 Care time: The patient presented to the Emergency Department on the above date and was hospitalized for further evaluation of their emergent condition. - New Patient This patient is new to me today: No - Critical Care Critical Care patient: No - Discharge Referral Referred to [facility] No
--- NOTE | 2019-07-16 15:12 | PN.GI ---
GI Progress Note Subjective: NO NEW COMPLAINTS - NO PAIN AT THIS TIME - Objective Vital Signs: Vital Signs Temperature 97.9 F 07/16/19 13:00 Pulse Rate 56 L 07/16/19 13:00 Respiratory Rate 18 07/16/19 13:00 Blood Pressure 137/83 07/16/19 13:00 O2 Sat by Pulse Oximetry (%) 97 07/16/19 08:30 Constitutional: Well Nourished, No Distress, Calm Eyes: Yes: WNL HENT: Yes: WNL Neck: Yes: WNL Cardiovascular: Yes: WNL, Regular Rate and Rhythm Respiratory: Yes: WNL, Regular, CTA Bilaterally Gastrointestinal Inspection: Yes: WNL ...Auscultate: Yes: Normoactive Bowel Sounds Edema: No Labs: CBC, BMP 07/15/19 06:25 07/15/19 06:25 INR, PTT INR 0.99 (0.83-1.09) 07/14/19 05:30 Problem List - Problems (1) Abdominal pain Assessment/Plan: ABDOMINAL PAIN - BILIARY ORIGIN - CHRONIC CHOLECYSTITIS. - NPO / IVF - ABX - SURGERY EVALUATION NOTED - CHOLECYSTECTOMY ? TOMORROW Code(s): R10.9 - UNSPECIFIED ABDOMINAL PAIN Qualifiers: Abdominal location: epigastric Qualified Code(s): R10.13 - Epigastric pain (2) Cholecystitis Code(s): K81.9 - CHOLECYSTITIS, UNSPECIFIED
[2019-07-16] MEDS: DEXTROSE 5%-0.45% SALINE 1,000 ML IV SCH (16:21)
[2019-07-16] MEDS ORDERED: PT OWN MED DRAWER 7, Y5N ONE (21:43)
[2019-07-16] MEDS: SOLIFENACIN SUCCINATE 5 MG TAB PO SCH (22:12)
[2019-07-16] MEDS: amLODIPine BESYLATE 5 MG TABLET (FP) PO SCH (22:12)
[2019-07-16] MEDS: ATORVASTATIN CA 10 MG TABLET (FP) PO SCH (22:12)
[2019-07-17] MEDS: DEXTROSE 5%-0.45% SALINE 1,000 ML IV SCH ×2 (06:01→17:29)
[2019-07-17] MEDS ORDERED: DEXTROSE 5%-WATER 100 ML IVPB ONE (10:13)
[2019-07-17] MEDS ORDERED: REGADENOSON 0.4 MG/5 ML PRE-FILLED SYRINGE IVPUSH ONE ×2 (10:35→11:15)
--- NOTE | 2019-07-17 13:41 | PN ---
Teaching Attending Note Name of Resident: Anthony Hagan ATTENDING PHYSICIAN STATEMENT I saw and evaluated the patient. I reviewed the resident's note and discussed the case with the resident. I agree with the resident's findings and plan as documented with exceptions below. SUBJECTIVE: Patient seen and examined. Still with poor oral tolerability, reports some headache and abdominal pain, still with poor oral intake. OBJECTIVE: Vital Signs Period Temp Pulse Resp BP Sys/Cortez Pulse Ox Last 24 Hr 97.0 F-98.2 F 50-65 18-20 119-149/64-77 99-99 Intake & Output 07/14/19 07/15/19 07/16/19 07/17/19 23:59 23:59 23:59 23:59 Intake Total 2440 2225 1275 Balance 2440 2225 1275 Weight 135 lb General: lying in bed, weak looking, pale, no acute distress neck: soft, supple Chest: CTAB, no rales or wheezing Abdomen:Soft, vague generalized tenderess, more in RUQ, neg rick's sign, pos bowel sounds Extremities: no edema Home Medications Medication Instructions Recorded Apixaban [Eliquis] 5 mg PO BID 05/05/17 Losartan Potassium 100 mg PO DAILY 05/05/17 Metoprolol Succinate [Toprol Xl -] 25 mg PO DAILY 05/05/17 Simvastatin 20 mg PO HS 05/05/17 Amlodipine Besylate 5 mg PO HS 07/13/19 Hydrochlorothiazide [Hctz -] 12.5 mg PO DAILY 07/13/19 Oxybutynin Chloride [Ditropan Xl] 5 mg PO HS 07/13/19 Active Medications Amlodipine Besylate (Norvasc -) 5 mg PO [facility] Last Admin: 07/16/19 22:12 Dose: 5 mg Atorvastatin Calcium (Lipitor -) 10 mg PO [facility] Last Admin: 07/16/19 22:12 Dose: 10 mg Enoxaparin Sodium (Lovenox -) 60 mg SQ BID [facility] Last Admin: 07/17/19 14:05 Dose: 60 mg Ceftriaxone Sodium 2 gm/ (Dextrose) 100 mls @ 200 mls/hr IVPB DAILY [facility]; Protocol Last Admin: 07/17/19 14:04 Dose: 200 mls/hr Metronidazole (Flagyl 500mg Premixed Ivpb -) 500 mg in 100 mls @ 100 mls/hr IVPB Q8H-IV [facility] Last Admin: 07/17/19 14:04 Dose: 100 mls/hr Dextrose/Sodium Chloride (D5-1/2ns -) 1,000 mls @ 75 mls/hr IV ASDIR [facility] Last Admin: 07/17/19 06:01 Dose: 75 mls/hr Losartan Potassium (Cozaar -) 100 mg PO DAILY [facility] Last Admin: 07/17/19 14:03 Dose: 100 mg Metoprolol Succinate (Toprol Xl -) 25 mg PO DAILY [facility] Last Admin: 07/17/19 14:04 Dose: 25 mg Pantoprazole Sodium (Protonix Iv) 40 mg IVPUSH DAILY [facility] Last Admin: 07/17/19 14:05 Dose: 40 mg Solifenacin (Vesicare -) 5 mg PO HS [facility] Last Admin: 07/16/19 22:12 Dose: 5 mg Microbiology 07/13/19 11:50 Urine - Urine Clean Catch Urine Culture - Final Escherichia Coli Stress test results noted ASSESSMENT AND PLAN: 74 yof with PMhx of Afib on Eliquis, HTN, HLD, BRENNA adenocarcinoma s/p lobectomy 2016, admitted with post prandial abdominal pain, abnormal LFTs and imaging consistent with gall stones and thickened gall bladder wall. -Biliary colic, low suspicion for biliary obstruction/cholangitis currently -Suspected acute on chronic cholecystitis -Abnormal LFTs, likely from above -Lower uncomplicated UTI -Dehydration -Atrial fibrillation on eliquis -HTN -HLD -BRENNA adenocarcinoma s/p lobectomy 2016 Plan: Surgery/cardiology input noted. Stress test with no ischemia For Surgery tomorrow Continue ceftriaxone/flagyl. Urine cx noted. GI input noted. PPI daily. Continue metoprolol/amlodipine/losartan. Continue to hold statin. Eliquis on hold, lovenox BID (hold tonight) DVTPPX as above Dispo in 48 hours if post op course uneventful and no concerns Will need PT eval prior to dc plan discussed with patient and daughter at bedside in detail, all questions answered.
[2019-07-17] MEDS: LOSARTAN POTASSIUM 50 MG TABLET (FP) PO SCH (14:03)
[2019-07-17] MEDS: metoPROLOL SUCCINATE 25 MG TAB.SR.24H (FP) PO SCH (14:04)
[2019-07-17] MEDS: CEFTRIAXONE 2 GM in DEXTROSE 5%-WATER 100 ML IVPB SCH (14:04)
[2019-07-17] MEDS: ENOXAPARIN NA (PORCINE) 60 MG/0.6 ML DISP.SYRIN SQ SCH (14:05)
[2019-07-17] MEDS: PANTOPRAZOLE SODIUM 40 MG VIAL IVPUSH SCH (14:05)
--- NOTE | 2019-07-17 15:48 | PN ---
Physical Exam: SUBJECTIVE: Patient seen and examined at the bedside. In good spirits. Endorses some pain with eating and has had poor appetite the previous night. Denied any cp, sob, fever, chills, n/v/c/d, numbness, tingling. Went for stress test today. OBJECTIVE: Vital Signs Period Temp Pulse Resp BP Sys/Cortez Pulse Ox Last 24 Hr 97.0 F-98.2 F 50-65 18-20 119-149/64-77 99-99 GENERAL: Awake, alert, and fully oriented, in no acute distress. Indonesian speaking. HEAD: Normal with no signs of trauma. EYES: Pupils equal, round and reactive to light, extraocular movements intact, sclera anicteric, conjunctiva clear. EARS, NOSE, THROAT: Oropharynx clear without exudates. Moist mucous membranes. NECK: Normal range of motion, supple without lymphadenopathy, JVD. LUNGS: Breath sounds equal, clear to auscultation bilaterally. No wheezes, and no crackles. No accessory muscle use. HEART: Regular rate and rhythm, normal S1 and S2 without murmur, rub. ABDOMEN: Soft, mildly tender to palpation in RUQ, Renner's negative, not distended, normoactive bowel sounds, no guarding, no rebound, no masses. MUSCULOSKELETAL: Normal range of motion at all joints. No bony deformities or tenderness. UPPER EXTREMITIES: 2+ pulses, warm, well-perfused. No cyanosis. No clubbing. No peripheral edema. LOWER EXTREMITIES: 2+ pulses, warm, well-perfused. No calf tenderness. No peripheral edema. NEUROLOGICAL: Cranial nerves II-XII intact. 5/5 muscle strength bilaterally upper and lower extremities. PSYCHIATRIC: Cooperative. Good eye contact. Appropriate mood and affect. SKIN: Warm, dry, normal turgor, no rashes or lesions noted, normal capillary refill. Active Medications Generic Name Dose Route Start Last Admin Trade Name Freq PRN Reason Stop Dose Admin Amlodipine Besylate 5 mg 07/15/19 22:00 07/16/19 22:12 Norvasc - PO 5 mg HS [facility] Administration Atorvastatin Calcium 10 mg 07/15/19 22:00 07/16/19 22:12 Lipitor - PO 10 mg HS [facility] Administration Enoxaparin Sodium 60 mg 07/13/19 22:00 07/17/19 14:05 Lovenox - SQ 60 mg BID [facility] Administration Ceftriaxone Sodium 2 gm/ 100 mls @ 200 mls/hr 07/14/19 10:00 07/17/19 14:04 Dextrose IVPB 200 mls/hr DAILY [facility] Administration Protocol Metronidazole 500 mg in 100 mls @ 100 mls/hr 07/13/19 18:45 07/17/19 14:04 Flagyl 500mg Premixed Ivpb - IVPB 100 mls/hr Q8H-IV [facility] Administration Dextrose/Sodium Chloride 1,000 mls @ 75 mls/hr 07/14/19 16:15 07/17/19 06:01 D5-1/2ns - IV 75 mls/hr ASDIR [facility] Administration Losartan Potassium 100 mg 07/15/19 10:00 07/17/19 14:03 Cozaar - PO 100 mg DAILY [facility] Administration Metoprolol Succinate 25 mg 07/14/19 10:00 07/17/19 14:04 Toprol Xl - PO 25 mg DAILY [facility] Administration Pantoprazole Sodium 40 mg 07/14/19 10:00 07/17/19 14:05 Protonix Iv IVPUSH 40 mg DAILY [facility] Administration Solifenacin 5 mg 07/15/19 22:00 07/16/19 22:12 Vesicare - PO 5 mg HS [facility] Administration ASSESSMENT/PLAN: Grazyna Portillo is a 74 year old female (Indonesian speaking) with a past medical history of Afib on Eliquis, HTN, HLD, BRENNA adenocarcinoma s/p lobectomy 2017 who presented to [facility] due to 3 days of progressively worsening right sided abdominal pain admitted for cholelithiasis. Abdominal pain 2/2 Cholelithiasis - Gallbladder U/S---Slightly Coarse echotexture of liver. Small gallbladder sludge and likely small stones with significant thickening of its wall, adjacent to gallbladder neck region where measuring 11 mm thickness. Further evaluation is needed. No pericholecystic free fluid is present. Negative Sono murphys. - Ceftriaxone and Flagyl - Dr. Markham consulted, planning for surgery on 07/18 - Lovenox 1 mg/kg BID while planning for surgery, held pending surgery tomorrow - NPO after midnight - Pantoprazole - GI Consult, recs appreciated - MRCP showing mild thickening of the gallbladder wall, no dilation of common pancreatic and common bile duct, cystic lesion in the R lobe of the liver - will require outpatient GI follow up R/O ACS - EKG with new T wave inversions - 2x troponins negative, patient no longer complaining of chest pain - echo showing EF 55-60%, elevated RV systolic pressure, moderately dilated ascending aorta, mild regurg in mitral, aortic, tricuspid valves - cardiology consulted, recs appreciated - as per cardiology, patient cleared for surgery from cardio standpoint - stress test without any ischemic changes, normal myocardial SPECT scan, normal LV contraction AFIB - Will switch Eliquis to Lovenox 1mg/kg BID HLD - Hold statin in light of elevated liver enzymes HTN - Continue Metoprolol. Hold Norvasc and HCTZ FEN - D5 1/2 NS 75cc/hr - Continue to monitor electrolytes and replete as necessary - NPO after midnight DVT ppx - Lovenox 1mg/kg BID held pending surgery Dispo - continue to monitor on Telemetry Visit type - Emergency Visit Emergency Visit: Yes ED Registration Date: 07/13/19 Care time: The patient presented to the Emergency Department on the above date and was hospitalized for further evaluation of their emergent condition. - New Patient This patient is new to me today: No - Critical Care Critical Care patient: No
--- NOTE | 2019-07-17 16:35 | PN ---
Progress Note (short form) - Note Progress Note: s: no cp sob palps dizzy TELE: SR Current Medications Generic Name Dose Route Start Last Admin Trade Name Edna PRN Reason Stop Dose Admin Amlodipine Besylate 5 mg 07/15/19 22:00 07/16/19 22:12 Norvasc - PO 5 mg HS [facility] Administration Atorvastatin Calcium 10 mg 07/15/19 22:00 07/16/19 22:12 Lipitor - PO 10 mg HS [facility] Administration Enoxaparin Sodium 60 mg 07/13/19 22:00 07/17/19 14:05 Lovenox - SQ 60 mg BID [facility] Administration Ceftriaxone Sodium 2 gm/ 100 mls @ 200 mls/hr 07/14/19 10:00 07/17/19 14:04 Dextrose IVPB 200 mls/hr DAILY [facility] Administration Protocol Metronidazole 500 mg in 100 mls @ 100 mls/hr 07/13/19 18:45 07/17/19 14:04 Flagyl 500mg Premixed Ivpb - IVPB 100 mls/hr Q8H-IV [facility] Administration Dextrose/Sodium Chloride 1,000 mls @ 75 mls/hr 07/14/19 16:15 07/17/19 06:01 D5-1/2ns - IV 75 mls/hr ASDIR [facility] Administration Losartan Potassium 100 mg 07/15/19 10:00 07/17/19 14:03 Cozaar - PO 100 mg DAILY [facility] Administration Metoprolol Succinate 25 mg 07/14/19 10:00 07/17/19 14:04 Toprol Xl - PO 25 mg DAILY [facility] Administration Pantoprazole Sodium 40 mg 07/14/19 10:00 07/17/19 14:05 Protonix Iv IVPUSH 40 mg DAILY [facility] Administration Solifenacin 5 mg 07/15/19 22:00 07/16/19 22:12 Vesicare - PO 5 mg HS [facility] Administration - Objective Vital Signs: Vital Signs Period Temp Pulse Resp BP Sys/Cortez Pulse Ox Last 24 Hr 97.0 F-98.2 F 50-65 18-20 119-149/64-77 99-99 Constitutional: Yes: No Distress, Calm Cardiovascular: Yes: Regular Rate and Rhythm Respiratory: Yes: CTA Bilaterally Gastrointestinal: Yes: Soft (no rebound or guarding) Edema: No Peripheral Pulses WNL: Yes Neurological: Yes: Alert, Oriented no jaundice diaphoresis CBC, BMP 07/15/19 06:25 07/15/19 06:25 Echo: Moderately dilated asc aorta (known), normal LVEF, no sig valve disease. mibi: nl mpi IMP: 1. Biliary colic/cholecystitis. 2. PAF on AC 3. Chronic 4.8cm thoracic aortic aneurysm under surveillance 4. HTN 5. HLD 6. Hx Lung Ca, Lobectomy REC: 1. Work up and treatment of biliary colic as per PMD/GI/Surgery; cholecystectomy planned WEDNESDAY 2. Echo showed normal LVEF w/ no significant valve disease. Mibi here unremarkable. 3. No cardiac contraindications to planned cholecystectomy 4. Continue home meds; now on Lovenox to be held preop as per surgery. 5. Should receive usual BP meds on the morning of surgery with small sip of water.
[2019-07-17] MEDS: amLODIPine BESYLATE 5 MG TABLET (FP) PO SCH (21:51)
[2019-07-17] MEDS: ATORVASTATIN CA 10 MG TABLET (FP) PO SCH (21:51)
[2019-07-17] MEDS: SOLIFENACIN SUCCINATE 5 MG TAB PO SCH (22:24)
[2019-07-18 07:13] LABS: HEMATOCRIT 39.3 % (32.4-45.2); MCH 28.1 pg (25.7-33.7); MCHC 33.1 g/dl (32.0-36.0); MEAN CELL VOLUME 84.9 fl (80-96); PLATELET COUNT 166 K/MM3 (134-434); RBC 4.63 M/mm3 (3.60-5.2); RDW 13.4 % (11.6-15.6); WHITE BLOOD COUNT 4.1 K/mm3 (4.0-10.0)
[2019-07-18 07:28] LABS: INR 1.03 (0.83-1.09); PROTHROMBIN TIME (PATIENT) 12.2 SEC (9.7-13.0)
[2019-07-18 08:04] LABS: ALBUMIN 3.3 g/dl (3.4-5.0); BILIRUBIN,TOTAL 0.8 mg/dL (0.2-1); BLOOD UREA NITROGEN 3.7 mg/dL (7-18); CALCIUM 8.9 mg/dL (8.5-10.1); CREATININE 0.6 mg/dL (0.55-1.3); TOT PROT 5.9 g/dl (6.4-8.2)
[2019-07-18] MEDS ORDERED: D5-1/2NS+20 MEQ KCL - 20 MEQ/1,000 ML INFUS.BAG IV SCH ×2 (09:00→16:34)
[2019-07-18] MEDS ORDERED: DEXTROSE 5%-WATER 100 ML IVPB ONE (10:08)
[2019-07-18] MEDS: KCL 10 MEQ IVPB 10 MEQ/100 ML INFUS.BAG IVPB SCH ×3 (10:12→17:16)
[2019-07-18] MEDS: metoPROLOL SUCCINATE 25 MG TAB.SR.24H (FP) PO SCH (10:13)
[2019-07-18] MEDS: CEFTRIAXONE 2 GM in DEXTROSE 5%-WATER 100 ML IVPB SCH (10:14)
[2019-07-18] MEDS: PANTOPRAZOLE SODIUM 40 MG VIAL IVPUSH SCH (10:15)
--- NOTE | 2019-07-18 10:30 | PN ---
Progress Note, Physician Chief Complaint: seen and examined at bedside Daughter present No CP, SOB, palps TELE: NSR - Current Medication List Current Medications: Active Medications Amlodipine Besylate (Norvasc -) 5 mg PO HS [facility] Last Admin: 07/17/19 21:51 Dose: 5 mg Atorvastatin Calcium (Lipitor -) 10 mg PO HS [facility] Last Admin: 07/17/19 21:51 Dose: 10 mg Enoxaparin Sodium (Lovenox -) 60 mg SQ BID [facility] Last Admin: 07/17/19 14:05 Dose: 60 mg Ceftriaxone Sodium 2 gm/ (Dextrose) 100 mls @ 200 mls/hr IVPB DAILY [facility]; Protocol Last Admin: 07/18/19 10:14 Dose: 200 mls/hr Metronidazole (Flagyl 500mg Premixed Ivpb -) 500 mg in 100 mls @ 100 mls/hr IVPB Q8H-IV [facility] Last Admin: 07/18/19 10:14 Dose: 100 mls/hr Potassium Chloride (Potassium Chloride 10 Meq Premix Ivpb -) 10 meq in 100 mls @ 100 mls/hr IVPB Q60M [facility] Stop: 07/18/19 11:59 Last Admin: 07/18/19 10:12 Dose: 100 mls/hr Potassium Chloride/Dextrose/Sod Cl (D5-1/2ns+20 Meq Kcl -) 20 meq in 1,000 mls @ 75 mls/hr IV ASDIR [facility] Last Admin: 07/18/19 10:27 Dose: Not Given Losartan Potassium (Cozaar -) 100 mg PO DAILY [facility] Last Admin: 07/17/19 14:03 Dose: 100 mg Metoprolol Succinate (Toprol Xl -) 25 mg PO DAILY [facility] Last Admin: 07/18/19 10:13 Dose: 25 mg Pantoprazole Sodium (Protonix Iv) 40 mg IVPUSH DAILY [facility] Last Admin: 07/18/19 10:15 Dose: 40 mg Solifenacin (Vesicare -) 5 mg PO HS [facility] Last Admin: 07/17/19 22:24 Dose: 5 mg - Objective Vital Signs: Vital Signs Temperature 98.3 F 07/18/19 06:00 Pulse Rate 51 L 07/18/19 06:00 Respiratory Rate 18 07/18/19 06:00 Blood Pressure 124/59 L 07/18/19 06:00 O2 Sat by Pulse Oximetry (%) 98 07/17/19 21:00 Constitutional: Yes: No Distress Cardiovascular: Yes: Regular Rate and Rhythm Respiratory: Yes: CTA Bilaterally Gastrointestinal: Yes: Soft Edema: No Peripheral Pulses WNL: Yes Neurological: Yes: Alert, Oriented Labs: CBC, BMP 07/18/19 06:35 07/18/19 06:35 INR, PTT INR 1.03 (0.83-1.09) 07/18/19 06:35 - ....Imaging EKG: Image Reviewed Assessment/Plan Echo: Moderately dilated asc aorta (known), normal LVEF, no sig valve disease. mibi: nl mpi IMP: 1. Biliary colic/cholecystitis. 2. PAF on AC 3. Chronic 4.8cm thoracic aortic aneurysm under surveillance 4. HTN 5. HLD 6. Hx Lung Ca, Lobectomy REC: 1. Work up and treatment of biliary colic as per PMD/GI/Surgery; cholecystectomy planned today. 2. Echo showed normal LVEF w/ no significant valve disease. Mibi here unremarkable. 3. No cardiac contraindications to planned cholecystectomy 4. Continue home meds; now on Lovenox to be held preop as per surgery. 5. Should receive usual BP meds on the morning of surgery with small sip of water.
[2019-07-18] MEDS: LOSARTAN POTASSIUM 50 MG TABLET (FP) PO SCH (10:33)
[2019-07-18] MEDS ORDERED: DEXAMETHASONE SOD PHOSPHATE 4 MG/1 ML VIAL ONE ×2 (11:00→13:02)
[2019-07-18] MEDS ORDERED: LIDOCAINE HCL/PF 2% SDV 5ML VIAL ONE ×2 (11:00→13:02)
[2019-07-18] MEDS ORDERED: SODIUM CHLORIDE 0.9% P/F 10 ML VIAL IJ ONE ×2 (11:00→13:02)
[2019-07-18] MEDS ORDERED: ceFAZolin SODIUM 1 GM VIAL ONE ×2 (11:00→13:02)
[2019-07-18] MEDS ORDERED: KETOROLAC TROMETHAMINE 30 MG/1 ML VIAL ONE ×2 (11:00→13:02)
[2019-07-18] MEDS ORDERED: DEXMEDETOMIDINE HCL 200 MCG/2 ML IVPB ONE (11:06)
--- NOTE | 2019-07-18 12:10 | OP ---
Operative Note - Note: Operative Date: 07/18/19 Pre-Operative Diagnosis: biliary colic,chronic cholecystitis Operation: laparoscopic cholecystectomy, lavage Findings: pale gb, thickened Post-Operative Diagnosis: Same as Pre-op Surgeon: Anthony Markham Land Title Examiner: Sheba Osborn Anesthesiologist/TURF GROWER: Estefania Ram Anesthesia: General Specimens Removed: gb Estimated Blood Loss (mls): 10
[2019-07-18] MEDS ORDERED: ONDANSETRON 4 MG/2 ML VIAL IVPUSH PRN ×2 (12:12→15:38)
[2019-07-18] MEDS ORDERED: oxyCODONE HCL 5 MG TABLET PO PRN ×2 (12:12→14:30)
[2019-07-18] MEDS ORDERED: ROCURONIUM BROMIDE 50 MG/5 ML SYRINGE ONE (12:24)
[2019-07-18] MEDS ORDERED: morphine SULFATE 4 MG/ML VIAL IVPB PRN (12:27)
[2019-07-18] MEDS ORDERED: NEOSTIGMINE METHYLSULFATE 0.5 MG/ML - 10 ML MDV ONE (13:00)
[2019-07-18] MEDS ORDERED: GLYCOPYRROLATE 0.2 MG/1 ML VIAL ONE (13:02)
--- NOTE | 2019-07-18 13:20 | PN ---
Progress Note (short form) - Note Progress Note: surgery s/p laparoscopic cholecystectomy. ok to d/c in am if tolerating diet, ambulating, voiding, and fever <101. no general surgical need for abx or narcotics. ok to shower. no lifting. regular diet. f/u in 2 weeks. [phone]
--- NOTE | 2019-07-18 14:30 | PN ---
Teaching Attending Note Name of Resident: Anthony Hagan ATTENDING PHYSICIAN STATEMENT I saw and evaluated the patient. I reviewed the resident's note and discussed the case with the resident. I agree with the resident's findings and plan as documented with exceptions below. SUBJECTIVE: Patient seen and examined. denies pain currently, daughter at bedside, awaiting surgery. OBJECTIVE: Vital Signs Period Temp Pulse Resp BP Sys/Cortez Pulse Ox Last 24 Hr 98.1 F-997.7 F 51-74 14-18 116-136/55-85 95-100 Intake & Output 07/15/19 07/16/19 07/17/19 07/18/19 23:59 23:59 23:59 23:59 Intake Total 2440 2225 1895 1475 Output Total 10 Balance 2440 2225 1895 1465 General: lying in bed, no acute distress neck: soft, supple Chest: CTAB, no rales or wheezing Abdomen: soft, NT, ND Extremities: no edema Home Medications Medication Instructions Recorded Apixaban [Eliquis] 5 mg PO BID 05/05/17 Losartan Potassium 100 mg PO DAILY 05/05/17 Metoprolol Succinate [Toprol Xl -] 25 mg PO DAILY 05/05/17 Simvastatin 20 mg PO HS 05/05/17 Amlodipine Besylate 5 mg PO HS 07/13/19 Hydrochlorothiazide [Hctz -] 12.5 mg PO DAILY 07/13/19 Oxybutynin Chloride [Ditropan Xl] 5 mg PO HS 07/13/19 Active Medications Amlodipine Besylate (Norvasc -) 5 mg PO HS [facility] Last Admin: 07/17/19 21:51 Dose: 5 mg Atorvastatin Calcium (Lipitor -) 10 mg PO HS [facility] Last Admin: 07/17/19 21:51 Dose: 10 mg Enoxaparin Sodium (Lovenox -) 60 mg SQ BID [facility] Last Admin: 07/17/19 14:05 Dose: 60 mg Enoxaparin Sodium (Lovenox -) 40 mg SQ DAILY [facility] Ceftriaxone Sodium 2 gm/ (Dextrose) 100 mls @ 200 mls/hr IVPB DAILY [facility]; Protocol Last Admin: 07/18/19 10:14 Dose: 200 mls/hr Metronidazole (Flagyl 500mg Premixed Ivpb -) 500 mg in 100 mls @ 100 mls/hr IVPB Q8H-IV [facility] Last Admin: 07/18/19 10:14 Dose: 100 mls/hr Potassium Chloride/Dextrose/Sod Cl (D5-1/2ns+20 Meq Kcl -) 20 meq in 1,000 mls @ 75 mls/hr IV ASDIR [facility] Last Admin: 07/18/19 10:27 Dose: Not Given Losartan Potassium (Cozaar -) 100 mg PO DAILY [facility] Last Admin: 07/18/19 10:33 Dose: Not Given Metoprolol Succinate (Toprol Xl -) 25 mg PO DAILY [facility] Last Admin: 07/18/19 10:13 Dose: 25 mg Morphine Sulfate (Morphine Sulfate) 8 mg IVPB Q3H PRN PRN Reason: PAIN LEVEL 7 - 10 Ondansetron HCl (Zofran Injection) 4 mg IVPUSH Q6H PRN PRN Reason: NAUSEA Oxycodone HCl (Roxicodone -) 7.5 mg PO Q4H PRN PRN Reason: PAIN LEVEL 4 - 6 Pantoprazole Sodium (Protonix Iv) 40 mg IVPUSH DAILY [facility] Last Admin: 07/18/19 10:15 Dose: 40 mg Solifenacin (Vesicare -) 5 mg PO HS [facility] Last Admin: 07/17/19 22:24 Dose: 5 mg Laboratory Results - last 24 hr 07/18/19 07/18/19 07/18/19 06:35 06:35 06:35 WBC 4.1 RBC 4.63 Hgb 13.0 Hct 39.3 MCV 84.9 MCH 28.1 MCHC 33.1 RDW 13.4 Plt Count 166 MPV 9.0 PT with INR 12.20 INR 1.03 PTT (Actin FS) 31.0 Sodium 145 Potassium 3.0 L Chloride 108 H Carbon Dioxide 29 Anion Gap 8 BUN 3.7 L Creatinine 0.6 Est GFR (CKD-EPI)AfAm 102.62 Est GFR (CKD-EPI)NonAf 88.54 Random Glucose 126 H Calcium 8.9 Total Bilirubin 0.8 AST 71 H ALT 91 H Alkaline Phosphatase 53 Total Protein 5.9 L Albumin 3.3 L Microbiology 07/13/19 11:50 Urine - Urine Clean Catch Urine Culture - Final Escherichia Coli MIBI neg for ischemia ASSESSMENT AND PLAN: 74 yof with PMhx of Afib on Eliquis, HTN, HLD, BRENNA adenocarcinoma s/p lobectomy 2017, admitted with post prandial abdominal pain, abnormal LFTs and imaging consistent with gall stones and thickened gall bladder wall. -Biliary colic, low suspicion for biliary obstruction/cholangitis currently -Suspected acute on chronic cholecystitis s/p lap cholecystectomy 07/18 -Abnormal LFTs, likely from above -Lower uncomplicated UTI -Dehydration -Atrial fibrillation on eliquis -HTN -HLD -BRENNA adenocarcinoma s/p lobectomy 2016 Plan: Surgery/cardiology input noted. Stress test with no ischemia s/p lap cholecystectomy. PO and abx per surgery. resume eliquis when ok with surgery. trend LFTs urine cx noted. GI input noted. PPI daily. Continue metoprolol/amlodipine/losartan. Continue to hold statin. DVTPPX as above Dispo daughter wants to take patient home. d/c home in 24 hours if doing well post op and no new concerns.
[2019-07-18] MEDS ORDERED: morphine SULFATE 4 MG/ML VIAL IVPUSH PRN (14:31)
--- NOTE | 2019-07-18 14:51 | OP ---
DATE OF OPERATION: 07/18/2019 PREOPERATIVE DIAGNOSIS: Cholelithiasis, symptomatic. POSTOPERATIVE DIAGNOSIS: Cholelithiasis, symptomatic. PROCEDURE: Laparoscopic cholecystectomy, lysis of adhesions, lavage. SURGEON: Anthony Markham DO DIRECTOR OF AVIATION: TILA Rubalcava INTRAOPERATIVE FINDINGS: Multiple adhesions of the liver capsule to the abdominal wall as well as the falciform ligament. A pale, edematous gallbladder. SPECIMEN: Gallbladder. BLOOD LOSS: Minimal. DRAINS: None. DISPOSITION: To recovery in stable condition. BRIEF HISTORY: This is a 74-year-old female who presented to [facility] with abdominal pain. She had ultrasound findings consistent with cholelithiasis. She was treated for mild cholecystitis, possible biliary colic. She had been on full anticoagulation, which was held. She was optimized by the medical as well as cardiology team and presents now for cholecystectomy. DESCRIPTION OF PROCEDURE: The patient was placed in a supine position after general anesthesia was initiated. The abdomen was prepped and draped in sterile fashion. The patient was already on Rocephin and Flagyl antibiotic. Anesthesiologist, Dr. Estefania Ram. At this point, a transverse incision was made infraumbilical with scalpel used to go through skin and subcutaneous tissue. The fascia was lifted with Marcio clamp. Veress needle was inserted and pneumoperitoneum was created. Next, an 11-mm trocar was placed followed by insertion of a 10-mm 0-degree laparoscope. An additional 11-mm trocar was placed subxiphoid, and two 5-mm trocars were placed in the right upper quadrant. Attention was then turned toward the right upper quadrant. There were multiple adhesive bands between the liver and the abdominal wall. These were taken down sharply in order to prevent injury to the capsule of the liver during gallbladder manipulation. At this point, the fundus of the gallbladder was lifted cephalad. The infundibulum retracted laterally. Peritoneal peel was dissected down exposing a small cystic duct and cystic artery. Both were clipped and divided. The gallbladder was then liberated from the liver bed using electrocautery, and hemostasis was maintained using electrocautery. The gallbladder was placed in a specimen bag, removed through the infraumbilical trocar site after a mild fascial dilatation and sent to Pathology marked as specimen. A vigorous lavage was done , and all return was clear. Trocars were removed under direct visualization, and no bleeding was noted. At this point, the fascia of the infraumbilical trocar site was then closed with multiple interrupted 0 Vicryl sutures. The 4 skin incisions were closed with subcuticular Biosyn, and Dermabond dressing was placed. Overall, the patient tolerated the procedure well. There were no complications. DO TEDDY KING/[id number] MTDD
[2019-07-18] MEDS ORDERED: LACTATED RINGERS SOLUTION 1,000 ML IV SCH (15:45)
--- NOTE | 2019-07-18 15:47 | PN ---
Physical Exam: SUBJECTIVE: Patient seen and examined at the bedside. Patient stated she is doing well. Still has poor appetite secondary to pain after eating. Denied cp, sob, n/v/c/d, fever, chills, headaches. OBJECTIVE: Vital Signs Period Temp Pulse Resp BP Sys/Cortez Pulse Ox Last 24 Hr 98.1 F-997.7 F 47-74 14-18 116-136/55-85 95-100 GENERAL: Awake, alert, and fully oriented, in no acute distress. Slovenian speaking. HEAD: Normal with no signs of trauma. EYES: Pupils equal, round and reactive to light, extraocular movements intact, sclera anicteric, conjunctiva clear. EARS, NOSE, THROAT: Oropharynx clear without exudates. Moist mucous membranes. NECK: Normal range of motion, supple without lymphadenopathy, JVD. LUNGS: Breath sounds equal, clear to auscultation bilaterally. No wheezes, and no crackles. No accessory muscle use. HEART: Regular rate and rhythm, normal S1 and S2 without murmur, rub. ABDOMEN: Soft, mildly tender to palpation in RUQ, Renner's negative, not distended, normoactive bowel sounds, no guarding, no rebound, no masses. MUSCULOSKELETAL: Normal range of motion at all joints. No bony deformities or tenderness. UPPER EXTREMITIES: 2+ pulses, warm, well-perfused. No cyanosis. No clubbing. No peripheral edema. LOWER EXTREMITIES: 2+ pulses, warm, well-perfused. No calf tenderness. No peripheral edema. NEUROLOGICAL: Cranial nerves II-XII intact. 5/5 muscle strength bilaterally upper and lower extremities. PSYCHIATRIC: Cooperative. Good eye contact. Appropriate mood and affect. SKIN: Warm, dry, normal turgor, no rashes or lesions noted, normal capillary refill. Laboratory Results - last 24 hr 07/18/19 07/18/19 07/18/19 06:35 06:35 06:35 WBC 4.1 RBC 4.63 Hgb 13.0 Hct 39.3 MCV 84.9 MCH 28.1 MCHC 33.1 RDW 13.4 Plt Count 166 MPV 9.0 PT with INR 12.20 INR 1.03 PTT (Actin FS) 31.0 Sodium 145 Potassium 3.0 L Chloride 108 H Carbon Dioxide 29 Anion Gap 8 BUN 3.7 L Creatinine 0.6 Est GFR (CKD-EPI)AfAm 102.62 Est GFR (CKD-EPI)NonAf 88.54 Random Glucose 126 H Calcium 8.9 Total Bilirubin 0.8 AST 71 H ALT 91 H Alkaline Phosphatase 53 Total Protein 5.9 L Albumin 3.3 L Active Medications Generic Name Dose Route Start Last Admin Trade Name Freq PRN Reason Stop Dose Admin Amlodipine Besylate 5 mg 07/15/19 22:00 07/17/19 21:51 Norvasc - PO 5 mg HS [facility] Administration Atorvastatin Calcium 10 mg 07/15/19 22:00 07/17/19 21:51 Lipitor - PO 10 mg HS [facility] Administration Enoxaparin Sodium 60 mg 07/13/19 22:00 07/17/19 14:05 Lovenox - SQ 60 mg BID [facility] Administration Enoxaparin Sodium 40 mg 07/19/19 10:00 Lovenox - SQ DAILY [facility] Fentanyl 25 mcg 07/18/19 15:38 Sublimaze Injection - IVPUSH [id number] PRN PAIN-PACU ORDER X 4 DOSES ONLY Ceftriaxone Sodium 2 gm/ 100 mls @ 200 mls/hr 07/14/19 10:00 07/18/19 10:14 Dextrose IVPB 200 mls/hr DAILY [facility] Administration Protocol Metronidazole 500 mg in 100 mls @ 100 mls/hr 07/13/19 18:45 07/18/19 10:14 Flagyl 500mg Premixed Ivpb - IVPB 100 mls/hr Q8H-IV [facility] Administration Potassium Chloride/Dextrose/Sod Cl 20 meq in 1,000 mls @ 75 mls/hr 07/18/19 09 :00 07/18/19 10:27 D5-1/2ns+20 Meq Kcl - IV Not Given ASDIR [facility] Lactated Ringer's 1,000 mls @ 75 mls/hr 07/18/19 15:45 Lactated Ringers Solution IV ASDIR [facility] Losartan Potassium 100 mg 07/15/19 10:00 07/18/19 10:33 Cozaar - PO Not Given DAILY [facility] Metoprolol Succinate 25 mg 07/14/19 10:00 07/18/19 10:13 Toprol Xl - PO 25 mg DAILY [facility] Administration Morphine Sulfate 2 mg 07/18/19 14:31 Morphine Sulfate IVPUSH Q4H PRN PAIN LEVEL 7 - 10 Ondansetron HCl 4 mg 07/18/19 12:12 Zofran Injection IVPUSH Q6H PRN NAUSEA Ondansetron HCl 4 mg 07/18/19 15:38 Zofran Injection IVPUSH Q6H PRN NAUSEA AND/OR VOMITING Oxycodone HCl 5 mg 07/18/19 14:30 Roxicodone - PO Q4H PRN PAIN LEVEL 4-6 Pantoprazole Sodium 40 mg 07/14/19 10:00 07/18/19 10:15 Protonix Iv IVPUSH 40 mg DAILY [facility] Administration Solifenacin 5 mg 07/15/19 22:00 07/17/19 22:24 Vesicare - PO 5 mg HS [facility] Administration ASSESSMENT/PLAN: Grazyna Portillo is a 74 year old female (Slovenian speaking) with a past medical history of Afib on Eliquis, HTN, HLD, BRENNA adenocarcinoma s/p lobectomy 2016 who presented to [facility] due to 3 days of progressively worsening right sided abdominal pain admitted for cholelithiasis. Abdominal pain 2/2 Cholelithiasis - Gallbladder U/S---Slightly Coarse echotexture of liver. Small gallbladder sludge and likely small stones with significant thickening of its wall, adjacent to gallbladder neck region where measuring 11 mm thickness. Further evaluation is needed. No pericholecystic free fluid is present. Negative Sono murphys. - Ceftriaxone and Flagyl pre-op - Dr. Markham consulted, underwent surgery for cholecystectomy - as per surgery patient can be d/c if no fevers, voiding, tolerating diet, ambulating - no need for post-surgical abx or narcotics - Pantoprazole - GI Consult, recs appreciated - MRCP showing mild thickening of the gallbladder wall, no dilation of common pancreatic and common bile duct, cystic lesion in the R lobe of the liver - will require outpatient GI follow up R/O ACS - EKG with new T wave inversions - 2x troponins negative, patient no longer complaining of chest pain - echo showing EF 55-60%, elevated RV systolic pressure, moderately dilated ascending aorta, mild regurg in mitral, aortic, tricuspid valves - cardiology consulted, recs appreciated - as per cardiology, patient cleared for surgery from cardio standpoint - stress test without any ischemic changes, normal myocardial SPECT scan, normal LV contraction AFIB - will resume Eliquis tomorrow 24 hours after surgery, as per surgery team spoken to by medical detail representative HLD - Hold statin in light of elevated liver enzymes HTN - Continue Metoprolol. Hold Norvasc and HCTZ FEN - D5 1/2NS + 20KCl at 75cc/hr - Continue to monitor electrolytes and replete as necessary - sodium/fat controlled diet DVT ppx - SCDs, Eliquis to be restarted tomorrow Dispo - continue to monitor on Telemetry Visit type - Emergency Visit Emergency Visit: Yes ED Registration Date: 07/13/19 Care time: The patient presented to the Emergency Department on the above date and was hospitalized for further evaluation of their emergent condition. - New Patient This patient is new to me today: No - Critical Care Critical Care patient: No
--- NOTE | 2019-07-18 16:51 | SURG ---
Surgery Train System Operator Note Train System Operator: Sheba Osborn PA-C Date of Service: 07/18/19 Diagnosis: biliary colic,chronic cholecystitis Procedure: Operation: laparoscopic cholecystectomy, lavage I was present for the entirety of the operative procedure. For further detail, please refer to operative report. Visit type - Case Type Case Type: ED Admission - Emergency Emergency Visit: Yes ED Registration Date: 07/13/19 Care time: The patient presented to the Emergency Department on the above date and was hospitalized for further evaluation of their emergent condition. - New patient This patient is new to me today: Yes Date on this admission: 07/18/19
[2019-07-18] MEDS ORDERED: PT OWN MED DRAWER 7, Y5N ONE ×2 (17:23→21:49)
[2019-07-18] MEDS ORDERED: SOLIFENACIN SUCCINATE 5 MG TAB PO SCH (22:00)
[2019-07-18] MEDS ORDERED: ATORVASTATIN CA 10 MG TABLET (FP) PO SCH (22:00)
[2019-07-18] MEDS ORDERED: amLODIPine BESYLATE 5 MG TABLET (FP) PO SCH (22:00)
[2019-07-19 08:44] LABS: BILIRUBIN,TOTAL 0.6 mg/dL (0.2-1); BLOOD UREA NITROGEN 8.3 mg/dL (7-18); CALCIUM 8.3 mg/dL (8.5-10.1); CREATININE 0.6 mg/dL (0.55-1.3); POTASSIUM 3.5 mmol/L (3.5-5.1); TOT PROT 5.3 g/dl (6.4-8.2)
[2019-07-19] MEDS ORDERED: DEXTROSE 5%-WATER 100 ML IVPB ONE (09:53)
[2019-07-19] MEDS: ENOXAPARIN NA (PORCINE) 40 MG/0.4 ML DISP.SYRIN SQ SCH ×2 (09:58→12:20)
[2019-07-19] MEDS ORDERED: PANTOPRAZOLE SODIUM 40 MG VIAL IVPUSH SCH (10:00)
[2019-07-19] MEDS ORDERED: metoPROLOL SUCCINATE 25 MG TAB.SR.24H (FP) PO SCH (10:00)
[2019-07-19] MEDS ORDERED: CEFTRIAXONE 2 GM in DEXTROSE 5%-WATER 100 ML IVPB SCH (10:00)
[2019-07-19] MEDS ORDERED: LOSARTAN POTASSIUM 50 MG TABLET (FP) PO SCH (10:00)
--- NOTE | 2019-07-19 10:02 | PN.GI ---
GI Progress Note Subjective: Pt seen/examined at bedside, sitting up in bed, pts daughter also present and translates. Lap kristen performed yesterday with mild tenderness at surgical site otherwise significantly improved, tolerating diet though still poor appetite, denies n/v, fever/chills. Passing gas, no bm yet. - Objective Vital Signs: Vital Signs Temperature 97.9 F 07/19/19 06:00 Pulse Rate 53 L 07/19/19 06:00 Respiratory Rate 18 07/19/19 06:00 Blood Pressure 117/67 07/19/19 06:00 O2 Sat by Pulse Oximetry (%) 97 07/18/19 21:00 Constitutional: Well Nourished, No Distress, Calm Cardiovascular: Yes: WNL, Regular Rate and Rhythm Respiratory: Yes: WNL, Regular, CTA Bilaterally ...Palpate: Yes: Other (Abd soft, mildly tender at right abdomen on palpation, nondistended, +laparoscopic incision sites) Labs: CBC, BMP 07/18/19 06:35 07/19/19 07:00 INR, PTT INR 1.03 (0.83-1.09) 07/18/19 06:35 Problem List - Problems (1) Cholecystitis Assessment/Plan: 74yo female h/o A fib on eliquis with upper abdominal pain s/p MRCP with gallbladder wall thickening s/p lap kristen pod #1, clinically improved. Mild transaminitis noted though downtrending. -Diet as tolerated -Monitor LFT trend to ensure normalization -Post op care per surgery -PPI daily Code(s): K81.9 - CHOLECYSTITIS, UNSPECIFIED (2) Liver lesion Assessment/Plan: 1.3cm right hepatic lobe lesion seen on MRCP. CT requested to further evaluate. Code(s): K76.9 - LIVER DISEASE, UNSPECIFIED
[2019-07-19] MEDS ORDERED: ACETAMINOPHEN 500 MG TABLET (FP) PO PRN (13:06)
[2019-07-19] MEDS ORDERED: APIXABAN 5 MG TABLET PO SCH (13:15)
--- NOTE | 2019-07-19 13:52 | PN ---
Teaching Attending Note Name of Resident: Anthony Hagan ATTENDING PHYSICIAN STATEMENT I saw and evaluated the patient. I reviewed the resident's note and discussed the case with the resident. I agree with the resident's findings and plan as documented. SUBJECTIVE: Tolerating oral intake without abdominal pain POD 1 s/p lap kristen. No nausea/vomiting. No fever/chills. No diarrhea. OBJECTIVE: Afebrile, Hemodynamically Stable. Last Vital Signs Temp Pulse Resp BP Pulse Ox 97.6 F 52 L 18 105/64 97 07/19/19 10:00 07/19/19 10:00 07/19/19 10:00 07/19/19 10:00 07/18/19 21:00 Heart - S1, S2, RRR Lungs - clear to auscultation Abdomen - soft, tender RUQ on deep palpation. Trochar sites clean. Bowel Sounds normal Extremities - no edema, no calf tenderness. Laboratory Results - last 24 hr 07/19/19 07:00 Sodium 140 Potassium 3.5 Chloride 108 H Carbon Dioxide 26 Anion Gap 6 L BUN 8.3 Creatinine 0.6 Est GFR (CKD-EPI)AfAm 102.62 Est GFR (CKD-EPI)NonAf 88.54 Random Glucose 164 H Calcium 8.3 L Total Bilirubin 0.6 AST 65 H ALT 84 H Alkaline Phosphatase 54 Total Protein 5.3 L Albumin 3.0 L Current Medications Generic Name Dose Route Start Last Admin Trade Name Freq PRN Reason Stop Dose Admin Acetaminophen 1,000 mg 07/19/19 13:06 07/19/19 13:19 Tylenol - PO 1,000 mg Q6H PRN Administration PAIN LEVEL 6-10 Amlodipine Besylate 5 mg 07/18/19 22:00 07/18/19 22:00 Norvasc - PO 5 mg HS [facility] Administration Apixaban 5 mg 07/19/19 13:15 07/19/19 13:19 Eliquis - PO 5 mg BID [facility] Administration Atorvastatin Calcium 10 mg 07/18/19 22:00 07/18/19 22:02 Lipitor - PO 10 mg HS [facility] Administration Fentanyl 25 mcg 07/18/19 15:38 Sublimaze Injection - IVPUSH [id number] PRN PAIN-PACU ORDER X 4 DOSES ONLY Lactated Ringer's 1,000 mls @ 75 mls/hr 07/18/19 15:45 07/18/19 17:55 Lactated Ringers Solution IV Not Given ASDIR [facility] Potassium Chloride/Dextrose/Sod Cl 20 meq in 1,000 mls @ 75 mls/hr 07/18/19 16 :34 07/18/19 17:59 D5-1/2ns+20 Meq Kcl - IV 75 mls/hr ASDIR [facility] Administration Metronidazole 500 mg in 100 mls @ 100 mls/hr 07/18/19 18:00 07/19/19 10:09 Flagyl 500mg Premixed Ivpb - IVPB 100 mls/hr Q8H-IV [facility] Administration Losartan Potassium 100 mg 07/19/19 10:00 07/19/19 09:58 Cozaar - PO 100 mg DAILY [facility] Administration Metoprolol Succinate 25 mg 07/19/19 10:00 07/19/19 09:58 Toprol Xl - PO 25 mg DAILY [facility] Administration Morphine Sulfate 2 mg 07/18/19 14:31 07/18/19 16:45 Morphine Sulfate IVPUSH 2 mg Q4H PRN Administration PAIN LEVEL 7 - 10 Ondansetron HCl 4 mg 07/18/19 12:12 Zofran Injection IVPUSH Q6H PRN NAUSEA Ondansetron HCl 4 mg 07/18/19 15:38 Zofran Injection IVPUSH Q6H PRN NAUSEA AND/OR VOMITING Oxycodone HCl 5 mg 07/18/19 14:30 07/18/19 22:00 Roxicodone - PO 5 mg Q4H PRN Administration PAIN LEVEL 4-6 Pantoprazole Sodium 40 mg 07/19/19 10:00 07/19/19 09:59 Protonix Iv IVPUSH 40 mg DAILY [facility] Administration Solifenacin 5 mg 07/18/19 22:00 07/18/19 22:02 Vesicare - PO 5 mg HS [facility] Administration Home Medications Medication Instructions Recorded Apixaban [Eliquis] 5 mg PO BID 05/05/17 Losartan Potassium 100 mg PO DAILY 05/05/17 Metoprolol Succinate [Toprol XL -] 25 mg PO DAILY 05/05/17 Simvastatin 20 mg PO HS 05/05/17 Amlodipine Besylate 5 mg PO HS 07/13/19 Hydrochlorothiazide [Hctz -] 12.5 mg PO DAILY 07/13/19 Oxybutynin Chloride [Ditropan Xl] 5 mg PO HS 07/13/19 ASSESSMENT/PLAN: 74 year old female with history of Atrial Fibrillation on Eliquis, HTN, HLD, 4.8cm thoracic aortic aneurysm (follow by Dr. Toro), BRENNA Adenoca s/p lobectomy 2016, admitted with 3 day history of epigastric abdominal pain, worse after meals. 1. Biliary Colic POD 1 s/p laparoscopic cholecystectomy. Abdominal US - thickened GB with small Gallstones. MRCP - mild thickening of GB wall, No CBD dilatation, Hepatic Cyst. LFTs improving. Monitor off Statin. Tolerating oral intake. 2. UTI - Urine Cx Ecoli. Treated with IV Ceftriaxone. 3. HTN - continue Metoprolol, Norvasc, Losartan. HCTZ held. 4. HLD - Statin held due to mild elevation in transaminases. Will monitor LFTs and resume Statin as out-patient. 5. Atrial fibrillation on Eliquis - resume. Cardiology cleared for surgery after negative MPI 07/17/19. 6. BRENNA Adenocarcinoma s/p lobectomy 2016 7. Hepatic Cyst on MRI - GI following, recommend CT A/P. Discharge pending CT A/ P result. 8. TAA 4.8cm, under surveillance as per Cardio. GI Px - PPI DVT Px - resume on Eliquis.
[2019-07-19 14:52] VITALS: BP 125/81; PULSE 48; TEMP 98.6
--- NOTE | 2019-07-19 15:07 | PN ---
Progress Note (short form) - Note Progress Note: s: no cp sob palps dizzy Current Medications Generic Name Dose Route Start Last Admin Trade Name Freq PRN Reason Stop Dose Admin Acetaminophen 1,000 mg 07/19/19 13:06 07/19/19 13:19 Tylenol - PO 1,000 mg Q6H PRN Administration PAIN LEVEL 6-10 Amlodipine Besylate 5 mg 07/18/19 22:00 07/18/19 22:00 Norvasc - PO 5 mg HS ADELFO Administration Apixaban 5 mg 07/19/19 13:15 07/19/19 13:19 Eliquis - PO 5 mg BID ADELFO Administration Fentanyl 25 mcg 07/18/19 15:38 Sublimaze Injection - IVPUSH [id number] PRN PAIN-PACU ORDER X 4 DOSES ONLY Lactated Ringer's 1,000 mls @ 75 mls/hr 07/18/19 15:45 07/18/19 17:55 Lactated Ringers Solution IV Not Given ASDIR ADELFO Potassium Chloride/Dextrose/Sod Cl 20 meq in 1,000 mls @ 75 mls/hr 07/18/19 16 :34 07/18/19 17:59 D5-1/2ns+20 Meq Kcl - IV 75 mls/hr ASDIR ADELFO Administration Losartan Potassium 100 mg 07/19/19 10:00 07/19/19 09:58 Cozaar - PO 100 mg DAILY ADELFO Administration Metoprolol Succinate 25 mg 07/19/19 10:00 07/19/19 09:58 Toprol Xl - PO 25 mg DAILY ADELFO Administration Morphine Sulfate 2 mg 07/18/19 14:31 07/18/19 16:45 Morphine Sulfate IVPUSH 2 mg Q4H PRN Administration PAIN LEVEL 7 - 10 Ondansetron HCl 4 mg 07/18/19 12:12 Zofran Injection IVPUSH Q6H PRN NAUSEA Ondansetron HCl 4 mg 07/18/19 15:38 Zofran Injection IVPUSH Q6H PRN NAUSEA AND/OR VOMITING Oxycodone HCl 5 mg 07/18/19 14:30 07/18/19 22:00 Roxicodone - PO 5 mg Q4H PRN Administration PAIN LEVEL 4-6 Pantoprazole Sodium 40 mg 07/19/19 10:00 07/19/19 09:59 Protonix Iv IVPUSH 40 mg DAILY ADELFO Administration Solifenacin 5 mg 07/18/19 22:00 07/18/19 22:02 Vesicare - PO 5 mg HS ADELFO Administration - Objective Vital Signs: Vital Signs Period Temp Pulse Resp BP Sys/Cortez Pulse Ox Last 24 Hr 97.4 F-98.6 F 47-53 13-20 105-136/48-81 97-100 Constitutional: Yes: No Distress, Calm Cardiovascular: Yes: Regular Rate and Rhythm Respiratory: Yes: CTA Bilaterally Gastrointestinal: Yes: Soft (no rebound or guarding) Edema: No Peripheral Pulses WNL: Yes Neurological: Yes: Alert, Oriented no jaundice diaphoresis CBC, BMP 07/18/19 06:35 07/19/19 07:00 Echo: Moderately dilated asc aorta (known), normal LVEF, no sig valve disease. mibi: nl mpi IMP: 1. Biliary colic/cholecystitis. 2. PAF on AC 3. Chronic 4.8cm thoracic aortic aneurysm under surveillance 4. HTN 5. HLD 6. Hx Lung Ca, Lobectomy REC: 1. Work up and treatment of biliary colic as per PMD/GI/Surgery; s/p cholecystectomy 2. Echo showed normal LVEF w/ no significant valve disease. Mibi here unremarkable. 3. No cardiac contraindications to planned cholecystectomy 4. Continue home meds, eliquis for afib cardiac perez remains stable
--- NOTE | 2019-07-19 16:25 | DS ---
Physical Exam: SUBJECTIVE: Patient seen and examined at the bedside. Patient doing well post-op , states she is eating well. Has some pain at the surgical site but otherwise does not have any acute complaints of chest pain, sob, n/v/c/d, fever, chills, dizziness, lightheadedness, headaches, skin changes, redness, warmth. OBJECTIVE: Vital Signs Period Temp Pulse Resp BP Sys/Cortez Pulse Ox Last 24 Hr 97.4 F-98.6 F 48-53 18-20 105-128/57-81 97-100 PHYSICAL EXAM GENERAL: Awake, alert, and fully oriented, in no acute distress. Telugu speaking. HEAD: Normal with no signs of trauma. EYES: Pupils equal, round and reactive to light, extraocular movements intact, sclera anicteric, conjunctiva clear. EARS, NOSE, THROAT: Oropharynx clear without exudates. Moist mucous membranes. NECK: Normal range of motion, supple without lymphadenopathy, JVD. LUNGS: Breath sounds equal, clear to auscultation bilaterally. No wheezes, and no crackles. No accessory muscle use. HEART: Regular rate and rhythm, normal S1 and S2 without murmur, rub. ABDOMEN: Soft, mildly tender at surgical sites, Renner's negative, not distended , normoactive bowel sounds, no guarding, no rebound, no masses. MUSCULOSKELETAL: Normal range of motion at all joints. No bony deformities or tenderness. UPPER EXTREMITIES: 2+ pulses, warm, well-perfused. No cyanosis. No clubbing. No peripheral edema. LOWER EXTREMITIES: 2+ pulses, warm, well-perfused. No calf tenderness. No peripheral edema. NEUROLOGICAL: Cranial nerves II-XII intact. 5/5 muscle strength bilaterally upper and lower extremities. PSYCHIATRIC: Cooperative. Good eye contact. Appropriate mood and affect. SKIN: Warm, dry, normal turgor, no rashes or lesions noted, normal capillary refill. LABS Laboratory Results - last 24 hr 07/19/19 07:00 Sodium 140 Potassium 3.5 Chloride 108 H Carbon Dioxide 26 Anion Gap 6 L BUN 8.3 Creatinine 0.6 Est GFR (CKD-EPI)AfAm 102.62 Est GFR (CKD-EPI)NonAf 88.54 Random Glucose 164 H Calcium 8.3 L Total Bilirubin 0.6 AST 65 H ALT 84 H Alkaline Phosphatase 54 Total Protein 5.3 L Albumin 3.0 L HOSPITAL COURSE: Jhon Portillo is a 74 year old female (Telugu speaking) with a past medical history of Afib on Eliquis, HTN, HLD, BRENNA adenocarcinoma s/p lobectomy 2017 who presented to [facility] due to 3 days of progressively worsening right sided abdominal pain admitted for cholelithiasis. Gallbladder ultrasound showed Slightly Coarse echotexture of liver, small gallbladder sludge and likely small stones with significant thickening of its wall, adjacent to gallbladder neck region where measuring 11 mm thickness. MRCP showed mild thickening of the gallbladder wall, no dilation of common pancreatic and common bile duct, cystic lesion in the R lobe of the liver. Patient was seen by GI who recommended a CT scan of the liver to evaluate the cyst. Abd CT showed mild diffuse fatty infiltration of the liver, likely R hepatic cyst but hemangioma could not be ruled out. Patient was advised to follow up with a liver ultrasound to evaluate the cyst. Patient underwent cholecystectomy with Dr. Markham and will follow up with him outpatient. Patient had EKG on admission with new T wave inversions. Echo showed EF 55-60%, elevated RV systolic pressure, moderately dilated ascending aorta, mild regurg in mitral, aortic, tricuspid valves. Cardiology saw patient and advised for stress test which was without any ischemic changes, normal myocardial SPECT scan , normal LV contraction. While patient was here had UTI which was treated with 5 day course of ceftriaxone and completed successfully. Patient's home medication was resumed except for simvastatin for which the patient will have to follow up LFTs outpatient. Patient and family were spoken to regarding plan to follow up with primary care , cardiology, gastroenterology, and general surgery. Patient to have outpatient LFTs performed prior to restarting simvastatin. Patient to have outpatient RUQ ultrasound to investigate liver lesion. Family and patient were told plan, were in agreement, and reiterated the plan. Patient was discharged in stable medical condition. Date of Admission:07/13/19 Date of Discharge: 07/19/19 Minutes to complete discharge: 35 Discharge Summary Problems reviewed: Yes Reason For Visit: ABDOMINAL PAIN Current Active Problems Liver lesion (Chronic) Condition: Stable - Instructions Diet, Activity, Other Instructions: Discharge Instructions Dear JHON PORTILLO, Post Operative Instructions Physical activity Resume your normal everyday activity as tolerated no heavy lifting or exercise until seen by your surgeon. You may walk unlimited amounts of and climb stairs. You may resume driving the car when you feel safe and comfortable behind the wheel and are no longer taking narcotics. Wound care If you have a bandage, leave it on, and keep dry for 48 hours. After that time discard the outer bandage. You may shower 2 days after surgery but do not submerge incisions.Do not apply lotion or ointments to incisions. Diet There are no dietary restrictions. Eat healthy, high-fiber foods. Drink 6 to 8 glasses of liquid each day. This will assist in keeping your bowels are regular. Pain management You may take Tylenol or acetaminophen or Ibuprofen (for example, Motrin, Advil etc.) Any pain prescription medication ordered should be taken as prescribed for moderate to severe pain. Call Dr. Markham for any of the following: Severe pain not relieved by medication Fever of 101 or higher Excessive bleeding or drainage on dressing Inability to urinate Call the office at [phone] for a post operative appointment in 7 - 10 days. CARDIAC You had a stress test performed while you were in the hospital which negative for any findings. You should follow up with the medical receptionist medical assistant outpatient. Gastrointestinal You had a CT scan to evaluate a liver cyst which showed that there is a likely liver cyst in the right part of your liver. You are requested to follow up with a Right Upper Quadrant Ultrasound directly to examine the liver cyst. You should follow up with a peoplesoft to evaluate any findings. MEDICATIONS STOP taking simvastatin. Recheck your bloodwork through your primary care doctor for Liver Function tests (LFTs) on WednesdayJuly 24 to determine if you should restart your simvastatin. Please continue to take all of your home medications as prescribed. Referrals Please follow up with your primary care physician within 1 week. Please follow up with the general surgeon, Dr. Anthony Markham, within 1 week. Please follow up with your medical receptionist medical assistant, Dr. Patricio Toro, within 1 week. Please follow up with the peoplesoft, Dr. Russell Pelaez, within 1 week. If you have any feelings of chest pain, shortness of breath, fever, worsening abdominal pain, vomiting, diarrhea, bloody bowel movements, or any other general feelings of unwellness, please call 911 or go to your nearest emergency room. Referrals: Raj Pelaez DO [Staff Physician] - 1 Week Patricio Toro MD [Non Staff, Medical] - 1 Week Anthony Markham MD [Staff Physician] - 1 Week Disposition: HOME - Home Medications Comprehensive Discharge Medication List: Ambulatory Orders Apixaban [Eliquis] 5 mg PO BID 05/05/17 Losartan Potassium 100 mg PO DAILY 05/05/17 Metoprolol Succinate [Toprol XL -] 25 mg PO DAILY 05/05/17 Amlodipine Besylate 5 mg PO HS 07/13/19 Hydrochlorothiazide [Hctz -] 12.5 mg PO DAILY 07/13/19 Oxybutynin Chloride [Ditropan Xl] 5 mg PO HS 07/13/19 This patient is new to me today: No Emergency Visit: Yes ED Registration Date: 07/13/19 Care time: The patient presented to the Emergency Department on the above date and was hospitalized for further evaluation of their emergent condition. Critical Care patient: No - Discharge Referral Referred to [facility] Med P.C.: No
--- NOTE | 2019-07-24 18:38 | PATH ---
Surgical Pathology Report Patient Name: JHON SUMMERS [facility]. Rec. #: [id number] /Age/Gender: 1945 (Age: 74) / F Account: [id number] Location: 4 W TELEMETRY U Taken: 07/18/2019 Received: 07/19/2019 Reported: 07/24/2019 Physicians: Anthony Markham M.D. Specimen(s) Received GALLBLADDER Clinical History Cholelithiasis Final Diagnosis GALLBLADDER, LAPAROSCOPIC CHOLECYSTECTOMY: CHRONIC CHOLECYSTITIS WITH CHOLELITHIASIS. Electronically Signed Patricia Marie M.D. Gross Description Received in formalin, labeled "gallbladder," is an 8.0 x 2.8 x 2.3 cm. gallbladder with a 0.2 cm. in length portion of cystic duct attached. The outer surface is brumfield green and varies from smooth to shaggy. The lumen contains green, tenacious bile as well as multiple black, irregular choleliths ranging from 0.1-0.3 cm in greatest dimension. The mucosa is green and velvety. The wall of the gallbladder ranges from 0.1-0.4 cm. in thickness. Verification Engineer sections are submitted in one cassette. 07/19/2019 saudi07/19/2019
== END 2019-07-19 16:22 | disposition home or self-care (01) | DRG 418 ==
LOC: JER 08:21 → JERBED 17:04 → J4W 07-14 15:26
PROVIDERS: ADMIT Hospitalist
PROC: 0JN83ZZ Release Abdomen Subcutaneous Tissue and Fascia, Percutaneous Approach (ICD-10-PCS; 2019-07-18)
PROC: 0FT44ZZ Resection of Gallbladder, Percutaneous Endoscopic Approach (ICD-10-PCS; principal; 2019-07-18 12:42)
DX: K80.00 Calculus of gallbladder with acute cholecystitis without obstruction (principal); N39.0 Urinary tract infection, site not specified; I10 Essential (primary) hypertension; E78.5 Hyperlipidemia, unspecified; R10.13 Epigastric pain; E86.0 Dehydration; R94.5 Abnormal results of liver function studies; I71.2 Thoracic aortic aneurysm, without rupture; M17.0 Bilateral primary osteoarthritis of knee; B96.20 Unspecified Escherichia coli [E. coli] as the cause of diseases classified elsewhere; K76.89 Other specified diseases of liver; Z85.118 Personal history of other malignant neoplasm of bronchus and lung
CPT/HCPCS: 36415; 74170-TC; 74181-TC; 76705-TC; 78452-TC; 80053; 81003; 82248; 82962; 83690; 83735; 84100; 84484; 85025; 85027; 85610; 85730; 87086; 87186; 88304-TC; 93005; 93010; 93017; 93306-TC; 94760; 97116-GP; 97161-GP; 99285-25; A9502; J2785; Q9967

== ENCOUNTER 2019-07-24 10:28 | Emergency (ER) | payer OTHER ==
[2019-07-24 11:12] VITALS: BMI 27.4
--- NOTE | 2019-07-24 11:36 | PDOC ---
Attending Attestation - Resident Resident Name: Alexandra Gonzalez - HPI HPI: 07/24/19 12:17 Pt presents to the ED complaining of generalized malaise and decreased PO intake since cholecystectomy on 07/20. Denies fever, nausea or vomiting or abdominal pain. Denies urinary complaints. Seen in PCP office for same complaints and sent to the ED for hypotension. - Physicial Exam PE: 07/24/19 12:21 Agree with resident exam. Patient is alert and oriented and in no acute distress. Abdomen is soft, non tender, non distended without guarding or rebound. - Medical Decision Making 07/24/19 12:22 Pt presents to the ED complaining of generalized malaise and decreased PO intake. Hypotensive on arrival to the ED. Differential includes emerging intraabdomial infection, dehydration, less likely intraabdominal bleed. Daughter and patient are very reluctant to have repeat CT scan. Will check labs and give IV hydration, check bedside US, and reassess. If labs or US show evidence of free fluid or infection, or BP does not improve with hydration, will check CT.
[2019-07-24] MEDS ORDERED: SODIUM CHLORIDE 1,000 ML IV STA ×2 (11:46→13:30)
[2019-07-24 12:30] LABS: BASO % 0.9 % (0-2.0); HEMATOCRIT 44.4 % (32.4-45.2); HEMOGLOBIN 14.9 GM/dL (10.7-15.3); LYMPH % 22.3 % (8-40); MCH 28.4 pg (25.7-33.7); MCHC 33.6 g/dl (32.0-36.0); MEAN CELL VOLUME 84.6 fl (80-96); MEAN PLT VOLUME 9.3 fl (7.5-11.1); NEUT % 63.8 % (42.8-82.8); PLATELET COUNT 214 K/MM3 (134-434); RBC 5.25 M/mm3 (3.60-5.2); RDW 13.6 % (11.6-15.6); WHITE BLOOD COUNT 5.4 K/mm3 (4.0-10.0)
--- NOTE | 2019-07-24 12:42 | PDOC ---
History of Present Illness - General Chief Complaint: Blood Pressure Problem Stated Complaint: SENT BY PCP Time Seen by Provider: 07/24/19 11:22 - History of Present Illness Initial Comments: HPI: 74yo F with PMH of afib on eliquis, HTN, HLD, lung CA s/p lobectomy, recent acute cholecystitis s/p lap kristen on 07/18/19 sent by her primary care physician for evaluation of hypotension. Patient was following up for lab work today. Has had poor po intake since being discharged as she has had a poor appetite. Denies abdominal pain, nausea, or vomiting. Has had bowel movements, albeit small, and is passing gas. Has been drinking about four glasses of water per day. She was not sure if she should eat prior to the labs so she did not. Ate small amounts of porridge yesterday. She feels weak such that she has no strength. No recent falls. Has had a cough for the past several weaks. Denies urinary symptoms. No fevers, chills, chest pain, or shortness of breath. PCP: Dr. Portillo ROS: Constitutional: no fever, +poor appetite HEENT: no throat pain, no dysphagia Cardiovascular: no chest pain, no palpitations Respiratory: +cough, no shortness of breath Gastrointestinal: no abdominal pain, no nausea Genitourinary: no dysuria, no hematuria Musculoskeletal: no myalgia, no arthralgia Skin: no rash, no itching Neurologic: no headache, +weakness PE: General: Awake, alert, and fully oriented, in no acute distress Head: No signs of trauma Eyes: EOMI, sclera anicteric ENT: Dry mucus membranes Neck: Normal ROM, supple Lungs: Lungs clear, Normal breath sounds Cardio: Regular rhythm, S1 and S2 present Abdomen: Soft, nontender. No guarding, no rebound, no masses. Surgical scars are clean, dry, and intact. Extremities: Normal range of motion, Distal pulses present SKIN: Warm, Dry, normal turgor Neurologic: Cranial nerves II through XII grossly intact. Normal speech ED Course/MDM: DDX including but not limited to post-op infection, PNA, UTI, dehydration Per Dr. Portillo's note: "Please evaluate this patient RADHA for hypotension ( systolic 90mm Hg) s/p lap cholecystectomy 2 weeks ago. Patient took antihypertensive one hour ago" Labs POCUS Fast Fluids Orthostatics: Laying 104/69 Sitting 88/69 Standing 94/75 Will reassess EKG: rate 76, QTc 447, NSR, LVH, flattened/twi in anterolateral distribution also present on previous EKG 07/13/19 07/24/19 12:34 CBC WBC 5.4 K/mm3 (4.0-10.0) 07/24/19 12:00 RBC 5.25 M/mm3 (3.60-5.2) H 07/24/19 12:00 Hgb 14.9 GM/dL (10.7-15.3) 07/24/19 12:00 Hct 44.4 % (32.4-45.2) 07/24/19 12:00 MCV 84.6 fl (80-96) 07/24/19 12:00 MCH 28.4 pg (25.7-33.7) 07/24/19 12:00 MCHC 33.6 g/dl (32.0-36.0) 07/24/19 12:00 RDW 13.6 % (11.6-15.6) 07/24/19 12:00 Plt Count 214 K/MM3 (134-434) D 07/24/19 12:00 MPV 9.3 fl (7.5-11.1) 07/24/19 12:00 Absolute Neuts (auto) 3.4 K/mm3 (1.5-8.0) 07/24/19 12:00 Neutrophils % 63.8 % (42.8-82.8) 07/24/19 12:00 Lymphocytes % 22.3 % (8-40) D 07/24/19 12:00 Monocytes % 12.0 % (3.8-10.2) H 07/24/19 12:00 Eosinophils % 1.0 % (0-4.5) 07/24/19 12:00 Basophils % 0.9 % (0-2.0) 07/24/19 12:00 Nucleated RBC % 0 % (0-0) 07/24/19 12:00 No leukocytosis UA equivocal for infection; will follow culture CXR unchanged from previous, my impression Pending chemistries 07/24/19 12:57 CMP Sodium 143 mmol/L (136-145) 07/24/19 12:00 Potassium 3.8 mmol/L (3.5-5.1) 07/24/19 12:00 Chloride 105 mmol/L (98-107) 07/24/19 12:00 Carbon Dioxide 28 mmol/L (21-32) 07/24/19 12:00 Anion Gap 9 MMOL/L (8-16) 07/24/19 12:00 BUN 12.4 mg/dL (7-18) 07/24/19 12:00 Creatinine 1.1 mg/dL (0.55-1.3) 07/24/19 12:00 Est GFR (CKD-EPI)AfAm 56.48 07/24/19 12:00 Est GFR (CKD-EPI)NonAf 48.73 07/24/19 12:00 Random Glucose 116 mg/dL (74-106) H 07/24/19 12:00 Lactic Acid 3.1 mmol/L (0.4-2.0) H* 07/24/19 12:00 Calcium 9.2 mg/dL (8.5-10.1) 07/24/19 12:00 Total Bilirubin 0.9 mg/dL (0.2-1) 07/24/19 12:00 AST 19 U/L (15-37) 07/24/19 12:00 ALT 36 U/L (13-61) 07/24/19 12:00 Alkaline Phosphatase 51 U/L (45-117) 07/24/19 12:00 Creatine Kinase 38 U/L (26-192) 07/24/19 12:00 Troponin I < 0.02 ng/ml (0.00-0.05) 07/24/19 12:00 Total Protein 6.6 g/dl (6.4-8.2) 07/24/19 12:00 Albumin 3.5 g/dl (3.4-5.0) 07/24/19 12:00 Per lab, lactate 3.1 CT abd/pelvis with IV contrast Another 1L NS ordered Discussed abnormal findings with patient and daughter. Daughter voiced her concern regarding possibility of patient staying in the hospital. We will await the CT results and repeat lactate. CXR: "EXAM#: TYPE/EXAM: RESULT: [id number] RAD/CHEST X-RAY PORTABLE* Chest: Weakness A single AP view of the chest is been submitted. Since 05/27/2017 there is an elevated left hemidiaphragm with large heart, sclerotic unfolded aorta, left AP window and hilar clips, clear lungs with right base calcification and no sign of an acute process. The angles are sharp. The bones and soft tissues are intact. Correlation recommended. Impression Little change since prior exam. " 07/24/19 14:25 POCUS without free fluid in abdomen; collapsible IVC Pending CT report 07/24/19 14:43 CT as read by radiology: "EXAM#: TYPE/EXAM: RESULT: [id number] CT/ABDOMEN PELVIS CT WITH CONTR HISTORY PROVIDED: Hypotension, S/P laparoscopic cholecystectomy. Sequential axial images were obtained from the domes of the diaphragms through the symphysis pubis following the administration of both oral and intravenous contrast material. The lung bases are free of acute infiltrates or pleural effusions. There is a large calcification within the right middle lobe that may be indicative of prior granulomatous disease. The heart is enlarged. The patient is S/P cholecystectomy. There is no evidence of postoperative fluid collection that may represent hematoma or abscess. There is no evidence of intra or extrahepatic biliary ductal dilatation. The liver is normal in size. It is slightly hypodense in texture consistent with diffuse fatty infiltration. There is a hypodensity within the right lobe of the liver that may represent a cyst or possibly hemangioma. The spleen is not enlarged enlarged. There is heterogeneous area within the spleen that could also represent a hemangioma or possibly is related to the phase of contrast enhancement. The pancreas, adrenal glands and kidneys demonstrate no significant abnormalities. The gallbladder has been removed. There is no evidence of intra-abdominal or retroperitoneal lymphadenopathy or fluid collections. There is no evidence of pneumoperitoneum, bowel obstruction or intra-abdominal abscess. Examination of the pelvis demonstrates no evidence of pelvic masses, fluid collections or lymphadenopathy. The uterus has been removed. There is no evidence of acute bony abnormalities. IMPRESSION: S/P cholecystectomy with no evidence of postoperative complications or acute pathology within the abdomen or pelvis. There has been no significant change since 07/19/2019. Please see above discussion. Reported By: Zan Barboza MD 07/24/19 [id number] " Plan for repeat lactate after second liter of fluids has finished 07/24/19 15:[address] Portillo, patient's PCP, In the event patient is discharged, she may follow-up in the office He would like to be updated when second lactate is back; has clinic hours until 6pm 07/24/19 15:13 Call to lab; another couples needed for second lactate result 07/24/19 16:26 Repeat lactate 2.0 Vital Signs Temperature 99 F 07/24/19 12:15 Pulse Rate 59 L 07/24/19 15:25 Respiratory Rate 18 07/24/19 11:44 Blood Pressure 109/83 07/24/19 15:25 O2 Sat by Pulse Oximetry (%) 98 07/24/19 11:44 BP improved after total of 2L NS Patient tolerated po intake Feeling better 07/24/19 16:50 Patient requesting to go home To follow up with primary care physician; I spoke with Dr. Portillo and patient can walk into the office without making an appointment Discharged home with strict return precautions 07/24/19 17:34 Past History - Past Medical History Allergies/Adverse Reactions: Allergies Allergy/AdvReac Type Severity Reaction Status Date / Time No Known Drug Allergies Allergy Verified 05/05/17 19:50 Home Medications: Ambulatory Orders Apixaban [Eliquis] 5 mg PO BID 05/05/17 Losartan Potassium 100 mg PO DAILY 05/05/17 Metoprolol Succinate [Toprol XL -] 25 mg PO DAILY 05/05/17 Amlodipine Besylate 5 mg PO HS 07/13/19 Hydrochlorothiazide [Hctz -] 12.5 mg PO DAILY 07/13/19 Oxybutynin Chloride [Ditropan Xl] 5 mg PO HS 07/13/19 Asthma: Yes Cancer: Yes (lung) Cardiac Disorders: Yes (afib) COPD: No HTN: Yes Hypercholesterolemia: Yes Thyroid Disease: No - Surgical History Lung Surgery: Yes (s/p lt lobectomy) - Immunization History Immunization Up to Date: Yes - Psycho Social/Smoking Cessation Hx Smoking History: Never smoked Have you smoked in the past 12 months: No Information on smoking cessation initiated: No Hx Alcohol Use: No Drug/Substance Use Hx: No Substance Use Type: None Hx Substance Use Treatment: No *Physical Exam - Vital Signs Last Vital Signs Temp Pulse Resp BP Pulse Ox 98.5 F 80 16 82/55 L 98 07/24/19 11:09 07/24/19 11:09 07/24/19 11:09 07/24/19 11:09 07/24/19 11:09 ED Treatment Course - LABORATORY CBC & Chemistry Diagram: 07/24/19 12:00 07/24/19 12:00 - RADIOLOGY Radiology Studies Ordered: Category Date Time Status CHEST X-RAY PORTABLE* [RAD] Stat Radiology 07/24/19 11:45 Ordered Discharge - Discharge Information Problems reviewed: Yes Clinical Impression/Diagnosis: Hypotension Qualifiers: Hypotension type: unspecified hypotension type Qualified Code(s): I95.9 - Hypotension, unspecified Condition: Improved Disposition: HOME - Follow up/Referral Referrals: Jacobo Portillo [Primary Care Provider] - - Patient Discharge Instructions Patient Printed Discharge Instructions: DI for Dehydration -- Adult, DI for Hypotension Additional Instructions: You came into the emergency department for low blood pressure. CT scan, Xray, and EKG did not indicate acute pathology. Lab work showed an elevated lactate which improved with fluids. Eat and hydrate throughout the day to prevent dehydration and low blood sugar levels. Continue taking home medications as prescribed by your physician. Follow up with your primary care physician within 72 hours. Your workup is not complete until you do so. I spoke with Dr. Portillo who said you can walk in without making an appointment. Immediate medical attention is required if you have: any chest pain, palpitations, shortness of breath, severe headaches, changes in vision, episodes of fainting, focal numbness or weakness, any severe abdominal pain, any black tarry stool, or any new or concerning symptoms. If you think you are having an emergency, call for emergency medical services or present to the emergency department right away. - Post Discharge Activity
[2019-07-24 12:46] LABS: INR 1.09 (0.83-1.09); PROTHROMBIN TIME (PATIENT) 12.9 SEC (9.7-13.0)
[2019-07-24 12:49] LABS: ACTIVATED PTT 38.6 SECONDS (25.2-36.5)
[2019-07-24 12:51] LABS: EPI CELLS 23.4 /HPF (0-5/HPF); HYALINE CASTS 14 /lpf (0-8); URINE APPEARANCE CLEAR; URINE BACTERIA 30.4 /hpf (NEGATIVE); URINE BILIRUBIN NEGATIVE (NEGATIVE); URINE COLOR YELLOW; URINE GLUCOSE (UA) NEGATIVE (NEGATIVE); URINE KETONE NEGATIVE (NEGATIVE); URINE LEUK ESTERASE TRACE (NEGATIVE); URINE NITRITE NEGATIVE (NEGATIVE); URINE PROTEIN 1+ (NEGATIVE); URINE RBC 1 /hpf (0-4); URINE UROBILINOGEN 0.2 mg/dL (0.2-1.0); URINE WBC 6 /hpf (0-5)
[2019-07-24 13:09] LABS: ALBUMIN 3.5 g/dl (3.4-5.0); BILIRUBIN,TOTAL 0.9 mg/dL (0.2-1); BLOOD UREA NITROGEN 12.4 mg/dL (7-18); CALCIUM 9.2 mg/dL (8.5-10.1); CREATININE 1.1 mg/dL (0.55-1.3); POTASSIUM 3.8 mmol/L (3.5-5.1); TOT PROT 6.6 g/dl (6.4-8.2)
[2019-07-24 18:50] VITALS: BP 135/60; PULSE 60; TEMP 97.6
--- NOTE | 2019-07-25 09:47 | EKG ---
Test Reason : Blood Pressure : / mmHG Vent. Rate : 076 BPM Atrial Rate : 076 BPM P-R Int : 170 ms QRS Dur : 080 ms QT Int : 398 ms P-R-T Axes : 055 005 159 degrees QTc Int : 447 ms NORMAL SINUS RHYTHM LEFT VENTRICULAR HYPERTROPHY WITH REPOLARIZATION ABNORMALITY ABNORMAL ECG WHEN COMPARED WITH ECG OF 13-JUL-2019 10:27, NO SIGNIFICANT CHANGE WAS FOUND Confirmed by MD Abhi, Matthew ([id number]) on 07/25/2019 9:47:23 AM Referred By: Confirmed By:Matthew Moe MD
== END 2019-07-24 18:15 | disposition home or self-care (01) ==
LOC: JER 10:28
PROC: 3E0337Z Introduction of Electrolytic and Water Balance Substance into Peripheral Vein, Percutaneous Approach (ICD-10-PCS; principal; 2019-07-24)
DX: I95.9 Hypotension, unspecified (principal); Z85.118 Personal history of other malignant neoplasm of bronchus and lung; E78.00 Pure hypercholesterolemia, unspecified; I48.91 Unspecified atrial fibrillation; J45.909 Unspecified asthma, uncomplicated
CPT/HCPCS: 36415; 71045-TC-FY; 74177-TC; 76604; 76705-TC; 80053; 81003; 82550; 83605; 84484; 85025; 85610; 85730; 86850; 86900; 86901; 87086; 87186; 93005; 93010; 93308; 99284-25; J7030; Q9967

== ENCOUNTER 2021-05-19 12:20 | Emergency (ER) | payer OTHER ==
[2021-05-19 12:46] VITALS: TEMP 98.8; BMI 23.8
[2021-05-19] MEDS ORDERED: ACETAMINOPHEN 1000 MG/100 ML VIAL (NON FORMULARY) IVPB ONE (13:25)
[2021-05-19] MEDS ORDERED: LACTATED RINGERS SOLUTION 1000 ML INFUS.BAG IV ONE (13:25)
[2021-05-19] MEDS ORDERED: ACETAMINOPHEN INJECTION 100 ML IVPB ONE (13:53)
[2021-05-19 14:12] LABS: BASO % 0.7 % (0-2.0); EOS % 1.1 % (0-4.5); HEMATOCRIT 34.4 % (32.4-45.2); HEMOGLOBIN 11.6 GM/dL (10.7-15.3); LYMPH % 17.5 % (8-40); MCH 28.3 pg (25.7-33.7); MCHC 33.6 g/dl (32.0-36.0); MEAN CELL VOLUME 84.3 fl (80-96); MEAN PLT VOLUME 7.1 fl (7.5-11.1); MONO % 7.8 % (3.8-10.2); NEUT % 72.9 % (42.8-82.8); PLATELET COUNT 456 10^3/uL (134-434); RBC 4.09 M/mm3 (3.60-5.2); RDW 15.5 % (11.6-15.6); WHITE BLOOD COUNT 7.2 K/mm3 (4.0-10.0)
[2021-05-19 14:21] LABS: INR 1.42 (0.83-1.09); PROTHROMBIN TIME (PATIENT) 17.5 SEC (9.7-13.0)
[2021-05-19 14:24] LABS: ACTIVATED PTT 34.7 SECONDS (25.2-36.5)
[2021-05-19 14:27] LABS: CHLORIDE 102 mmol/L (98-107); SODIUM 137 mmol/L (136-145)
[2021-05-19 14:30] LABS: ALBUMIN 3.2 g/dl (3.4-5.0); ANION GAP 8 MMOL/L (8-16); BLOOD UREA NITROGEN 15.5 mg/dL (7-18); CALCIUM 8.9 mg/dL (8.5-10.1); CO2 27 mmol/L (21-32); GLUCOSE,RANDOM 105 mg/dL (74-106); MAGNESIUM 2.3 mg/dL (1.8-2.4)
[2021-05-19 14:33] LABS: CREATININE 0.8 mg/dL (0.55-1.3); SGOT/AST 22 U/L (15-37); SGPT/ALT 32 U/L (13-61)
[2021-05-19 14:35] LABS: BILIRUBIN,TOTAL 1.2 mg/dL (0.2-1); TOT PROT 7.1 g/dl (6.4-8.2)
[2021-05-19 14:36] LABS: ALK PHOS 80 U/L (45-117)
[2021-05-19 15:32] LABS: EPI CELLS 4 /uL (0-25.1); HYALINE CASTS 0 /uL (0-3.1); PH,URINE 6.5 (5.0-8.0); URINE APPEARANCE CLEAR; URINE BACTERIA 26 /uL (0-1359); URINE BILIRUBIN NEGATIVE (NEGATIVE); URINE COLOR YELLOW; URINE GLUCOSE (UA) NEGATIVE (NEGATIVE); URINE KETONE NEGATIVE (NEGATIVE); URINE LEUK ESTERASE TRACE (NEGATIVE); URINE NITRITE NEGATIVE (NEGATIVE); URINE PROTEIN NEGATIVE (NEGATIVE); URINE RBC 6 /uL (0-23.9); URINE WBC 13 /uL (0-25.8)
[2021-05-19 19:01] VITALS: BP 118/76; PULSE 140
== END 2021-05-19 18:30 | disposition short-term general hospital (02) ==
LOC: JER 12:20
PROC: 3E0333Z Introduction of Anti-inflammatory into Peripheral Vein, Percutaneous Approach (ICD-10-PCS; principal; 2021-05-19)
DX: R00.0 Tachycardia, unspecified (principal)
CPT/HCPCS: 36415; 71045-TC-FY; 80053; 81003; 83605; 83735; 84484; 85025; 85610; 85730; 87040; 87086; 93005; 93010; 93971-TC; 96374; 99285-25; J0131

== ENCOUNTER 2021-12-25 14:33 | Inpatient (IN) | payer OTHER ==
[2021-12-25 15:45] LABS: BASO % 0.8 % (0-2.0); EOS % 0.8 % (0-4.5); HEMATOCRIT 41.6 % (32.4-45.2); HEMOGLOBIN 13.7 GM/dL (10.7-15.3); LYMPH % 29.1 % (8-40); MCH 27.9 pg (25.7-33.7); MCHC 33.1 g/dl (32.0-36.0); MEAN CELL VOLUME 84.5 fl (80-96); MEAN PLT VOLUME 8.8 fl (7.5-11.1); MONO % 8.1 % (3.8-10.2); NEUT % 61.2 % (42.8-82.8); PLATELET COUNT 157 10^3/uL (134-434); RBC 4.92 M/mm3 (3.60-5.2); RDW 14.9 % (11.6-15.6); WHITE BLOOD COUNT 5.8 K/mm3 (4.0-10.0)
[2021-12-25 15:49] LABS: VENOUS BASE EXCESS -3.9 mmol/L (-2-2); VENOUS O2 SATURATION 98.7 % (70-80); VENOUS PCO2 30.4 mmHg (38-52); VENOUS PH 7.421 (7.310-7.410)
[2021-12-25 16:11] LABS: CALCIUM 8.7 mg/dL (8.5-10.1)
[2021-12-25 16:12] LABS: BLOOD UREA NITROGEN 16.1 mg/dL (7-18); MAGNESIUM 2.2 mg/dL (1.8-2.4)
[2021-12-25 16:14] LABS: ALBUMIN 3.2 g/dl (3.4-5.0)
[2021-12-25 16:15] LABS: CREATININE 0.7 mg/dL (0.55-1.3)
[2021-12-25 16:16] LABS: TOT PROT 5.8 g/dl (6.4-8.2)
[2021-12-25 16:17] LABS: BILIRUBIN,TOTAL 2.2 mg/dL (0.2-1)
[2021-12-25 16:21] LABS: N-TERMINAL BNP 3592.4 pg/ml (5-450)
[2021-12-25] MEDS ORDERED: ACETAMINOPHEN 325 MG TABLET (FP) PO PRN (19:24)
[2021-12-25] MEDS ORDERED: POLYETHYLENE GLYCOL (HEALTHYLAX) 3350 17 GM PACKET PO PRN (19:24)
[2021-12-25] MEDS ORDERED: ALBUTEROL SO4 0.083% IH SOL 2.5 MG/3 ML VIAL.NEB. NEB PRN (19:30)
[2021-12-25] MEDS ORDERED: PATIENT'S OWN MEDICATION (NON-FORMULARY) (Cyclosporine [Restasis] 1 EACH Droperette) OP SCH (22:00)
[2021-12-25] MEDS: ATORVASTATIN CA 10 MG TABLET (FP) PO SCH (22:19)
[2021-12-25] MEDS: APIXABAN 5 MG TABLET PO SCH (22:19)
[2021-12-25] MEDS: MONTELUKAST NA 10 MG TABLET PO SCH (22:19)
[2021-12-26] MEDS ORDERED: ALBUTEROL SO4 2.5/IPRATROPIUM 0.5 INH SOL 3 ML VIAL.NEB. NEB ONE (00:12)
[2021-12-26] MEDS ORDERED: ATORVASTATIN CA 10 MG TABLET (FP) ONE (00:13)
[2021-12-26] MEDS ORDERED: APIXABAN 5 MG TABLET ONE (00:13)
[2021-12-26] MEDS ORDERED: MONTELUKAST NA 10 MG TABLET ONE (00:13)
[2021-12-26] MEDS: ALBUTEROL SO4 2.5/IPRATROPIUM 0.5 INH SOL 3 ML VIAL.NEB. NEB SCH ×2 (00:19→00:36)
[2021-12-26] MEDS: NYSTATIN 500,000 UNITS/5 ML SUSPENSION PO SCH ×4 (01:06→17:49)
[2021-12-26] MEDS: OMEGA-3 ACID ETHYL ESTERS (FATTY-ACIDS) 1 GM CAPSULE (FP) PO SCH ×3 (01:06→21:13)
[2021-12-26] MEDS: BUDESONIDE/FORMETEROL FUMARATE 160/4.5 mcg INHALER IH SCH ×3 (01:07→21:14)
[2021-12-26 01:25] VITALS: BMI 22.0
[2021-12-26 07:54] LABS: BASO % 0.8 % (0-2.0); EOS % 0.8 % (0-4.5); HEMATOCRIT 42.8 % (32.4-45.2); HEMOGLOBIN 13.8 GM/dL (10.7-15.3); LYMPH % 28.6 % (8-40); MCH 27.4 pg (25.7-33.7); MCHC 32.2 g/dl (32.0-36.0); MEAN CELL VOLUME 85.2 fl (80-96); MEAN PLT VOLUME 9.7 fl (7.5-11.1); NEUT % 61.8 % (42.8-82.8); PLATELET COUNT 151 10^3/uL (134-434); RBC 5.02 M/mm3 (3.60-5.2); RDW 15.3 % (11.6-15.6); WHITE BLOOD COUNT 5.5 K/mm3 (4.0-10.0)
[2021-12-26 08:16] LABS: ALBUMIN 3.3 g/dl (3.4-5.0); BLOOD UREA NITROGEN 16.4 mg/dL (7-18)
[2021-12-26 08:17] LABS: CALCIUM 8.7 mg/dL (8.5-10.1)
[2021-12-26 08:18] LABS: MAGNESIUM 2.3 mg/dL (1.8-2.4); PHOSPHOROUS 4.5 mg/dL (2.5-4.9)
[2021-12-26 08:19] LABS: CREATININE 0.8 mg/dL (0.55-1.3)
[2021-12-26 08:20] LABS: BILIRUBIN,TOTAL 2.2 mg/dL (0.2-1); TOT PROT 5.7 g/dl (6.4-8.2)
[2021-12-26] MEDS: LOSARTAN POTASSIUM 50 MG TABLET PO SCH (09:37)
[2021-12-26] MEDS: SERTRALINE HCL 50 MG TABLET (FP) PO SCH (09:37)
[2021-12-26] MEDS: APIXABAN 5 MG TABLET PO SCH ×2 (09:37→21:12)
[2021-12-26] MEDS: PANTOPRAZOLE 40 MG TABLET PO SCH (09:38)
[2021-12-26] MEDS ORDERED: FUROSEMIDE 40 MG/4 ML INJECTABLE VIAL IVPUSH SCH ×3 (10:00→22:00)
[2021-12-26] MEDS ORDERED: amLODIPine BESYLATE 5 MG TABLET (FP) PO SCH ×2 (10:00→10:51)
[2021-12-26] MEDS ORDERED: HYDROCHLOROTHIAZIDE 25 MG TABLET (FP) PO SCH (10:00)
[2021-12-26] MEDS ORDERED: metoPROLOL SUCCINATE 25 MG TAB.SR.24H (FP) PO SCH (10:00)
[2021-12-26] MEDS: LIPASE/PROTEASE/AMYLASE 6,000 UNIT CAPSULE PO SCH ×3 (10:44→17:50)
[2021-12-26] MEDS: ATORVASTATIN CA 10 MG TABLET (FP) PO SCH (21:12)
[2021-12-26] MEDS: MONTELUKAST NA 10 MG TABLET PO SCH (21:12)
[2021-12-26] MEDS: metoPROLOL SUCCINATE 25 MG TAB.SR.24H (FP) PO SCH (21:13)
[2021-12-27] MEDS: NYSTATIN 500,000 UNITS/5 ML SUSPENSION PO SCH ×4 (00:19→17:17)
[2021-12-27 07:27] LABS: EOS % 2.4 % (0-4.5); HEMATOCRIT 42.9 % (32.4-45.2); HEMOGLOBIN 13.7 GM/dL (10.7-15.3); LYMPH % 27.9 % (8-40); MCH 27.4 pg (25.7-33.7); MEAN CELL VOLUME 85.6 fl (80-96); MEAN PLT VOLUME 9.6 fl (7.5-11.1); MONO % 9.8 % (3.8-10.2); NEUT % 58.9 % (42.8-82.8); PLATELET COUNT 150 10^3/uL (134-434); RBC 5.01 M/mm3 (3.60-5.2); RDW 14.8 % (11.6-15.6); WHITE BLOOD COUNT 5.3 K/mm3 (4.0-10.0)
[2021-12-27 07:57] LABS: ALBUMIN 3.2 g/dl (3.4-5.0); BLOOD UREA NITROGEN 13.5 mg/dL (7-18); CALCIUM 9.1 mg/dL (8.5-10.1); MAGNESIUM 2.2 mg/dL (1.8-2.4)
[2021-12-27 08:00] LABS: CREATININE 0.8 mg/dL (0.55-1.3); PHOSPHOROUS 4.6 mg/dL (2.5-4.9)
[2021-12-27 08:02] LABS: BILIRUBIN,TOTAL 2.8 mg/dL (0.2-1); TOT PROT 5.6 g/dl (6.4-8.2)
[2021-12-27] MEDS ORDERED: FUROSEMIDE 40 MG/4 ML INJECTABLE VIAL IVPUSH SCH (10:00)
[2021-12-27] MEDS: LOSARTAN POTASSIUM 50 MG TABLET PO SCH (11:04)
[2021-12-27] MEDS: APIXABAN 5 MG TABLET PO SCH ×2 (11:04→21:20)
[2021-12-27] MEDS: SERTRALINE HCL 50 MG TABLET (FP) PO SCH (11:04)
[2021-12-27] MEDS: metoPROLOL SUCCINATE 25 MG TAB.SR.24H (FP) PO SCH ×2 (11:05→21:21)
[2021-12-27] MEDS: OMEGA-3 ACID ETHYL ESTERS (FATTY-ACIDS) 1 GM CAPSULE (FP) PO SCH ×2 (11:05→21:20)
[2021-12-27] MEDS: LIPASE/PROTEASE/AMYLASE 6,000 UNIT CAPSULE PO SCH ×3 (11:05→17:17)
[2021-12-27] MEDS: amLODIPine BESYLATE 5 MG TABLET (FP) PO SCH (11:05)
[2021-12-27] MEDS: PANTOPRAZOLE 40 MG TABLET PO SCH (11:05)
[2021-12-27] MEDS: BUDESONIDE/FORMETEROL FUMARATE 160/4.5 mcg INHALER IH SCH ×2 (11:06→21:40)
[2021-12-27] MEDS: ATORVASTATIN CA 10 MG TABLET (FP) PO SCH (21:20)
[2021-12-27] MEDS: MONTELUKAST NA 10 MG TABLET PO SCH (21:21)
[2021-12-28] MEDS: NYSTATIN 500,000 UNITS/5 ML SUSPENSION PO SCH ×6 (00:10→23:00)
[2021-12-28 07:46] LABS: EOS % 2.6 % (0-4.5); HEMATOCRIT 42.5 % (32.4-45.2); HEMOGLOBIN 13.8 GM/dL (10.7-15.3); LYMPH % 31.5 % (8-40); MCH 27.5 pg (25.7-33.7); MCHC 32.4 g/dl (32.0-36.0); MEAN CELL VOLUME 84.9 fl (80-96); MEAN PLT VOLUME 9.6 fl (7.5-11.1); MONO % 10.6 % (3.8-10.2); NEUT % 54.3 % (42.8-82.8); PLATELET COUNT 151 10^3/uL (134-434); RDW 14.7 % (11.6-15.6); WHITE BLOOD COUNT 4.7 K/mm3 (4.0-10.0)
[2021-12-28 07:59] LABS: BLOOD UREA NITROGEN 12.5 mg/dL (7-18); CALCIUM 8.7 mg/dL (8.5-10.1); MAGNESIUM 2.3 mg/dL (1.8-2.4)
[2021-12-28 08:02] LABS: CREATININE 0.7 mg/dL (0.55-1.3); PHOSPHOROUS 4.1 mg/dL (2.5-4.9)
[2021-12-28 08:04] LABS: BILIRUBIN,TOTAL 2.7 mg/dL (0.2-1); TOT PROT 5.4 g/dl (6.4-8.2)
[2021-12-28] MEDS: LIPASE/PROTEASE/AMYLASE 6,000 UNIT CAPSULE PO SCH ×3 (08:07→19:23)
[2021-12-28] MEDS: POTASSIUM CHLORIDE ORAL LIQUID 20 MEQ/15 ML PO SCH ×2 (08:35→19:49)
[2021-12-28] MEDS: LOSARTAN POTASSIUM 50 MG TABLET PO SCH (09:46)
[2021-12-28] MEDS: metoPROLOL SUCCINATE 25 MG TAB.SR.24H (FP) PO SCH (09:47)
[2021-12-28] MEDS: amLODIPine BESYLATE 5 MG TABLET (FP) PO SCH (09:48)
[2021-12-28] MEDS: OMEGA-3 ACID ETHYL ESTERS (FATTY-ACIDS) 1 GM CAPSULE (FP) PO SCH ×2 (09:48→21:23)
[2021-12-28] MEDS: APIXABAN 5 MG TABLET PO SCH ×2 (09:48→21:23)
[2021-12-28] MEDS: SERTRALINE HCL 50 MG TABLET (FP) PO SCH (09:48)
[2021-12-28] MEDS: PANTOPRAZOLE 40 MG TABLET PO SCH (09:48)
[2021-12-28] MEDS: BUDESONIDE/FORMETEROL FUMARATE 160/4.5 mcg INHALER IH SCH ×2 (09:50→22:55)
[2021-12-28] MEDS: FUROSEMIDE 40 MG TABLET (FP) PO SCH (09:53)
[2021-12-28] MEDS ORDERED: POTASSIUM CHLORIDE ORAL LIQUID 20 MEQ/15 ML PO SCH (19:45)
[2021-12-28] MEDS: MONTELUKAST NA 10 MG TABLET PO SCH (21:23)
[2021-12-28] MEDS: ATORVASTATIN CA 10 MG TABLET (FP) PO SCH (21:23)
[2021-12-28] MEDS ORDERED: metoPROLOL SUCCINATE 25 MG TAB.SR.24H (FP) PO SCH (22:00)
[2021-12-29 06:06] VITALS: BP 106/60; PULSE 59; TEMP 97.9
[2021-12-29] MEDS: NYSTATIN 500,000 UNITS/5 ML SUSPENSION PO SCH ×2 (06:22→12:08)
[2021-12-29] MEDS ORDERED: metoPROLOL SUCCINATE 25 MG TAB.SR.24H (FP) PO SCH (07:00)
[2021-12-29 07:39] LABS: BASO % 1.2 % (0-2.0); HEMATOCRIT 42.5 % (32.4-45.2); LYMPH % 31.3 % (8-40); MCH 27.9 pg (25.7-33.7); MCHC 32.9 g/dl (32.0-36.0); MEAN CELL VOLUME 84.6 fl (80-96); MONO % 9.6 % (3.8-10.2); NEUT % 55.9 % (42.8-82.8); PLATELET COUNT 154 10^3/uL (134-434); RBC 5.03 M/mm3 (3.60-5.2); WHITE BLOOD COUNT 4.2 K/mm3 (4.0-10.0)
[2021-12-29] MEDS ORDERED: POTASSIUM CHLORIDE ORAL LIQUID 20 MEQ/15 ML PO SCH (08:00)
[2021-12-29 08:29] LABS: ALBUMIN 3.2 g/dl (3.4-5.0); CALCIUM 8.9 mg/dL (8.5-10.1); MAGNESIUM 2.3 mg/dL (1.8-2.4)
[2021-12-29 08:32] LABS: PHOSPHOROUS 3.9 mg/dL (2.5-4.9)
[2021-12-29 08:33] LABS: TOT PROT 5.8 g/dl (6.4-8.2)
[2021-12-29 08:34] LABS: BILIRUBIN,TOTAL 2.2 mg/dL (0.2-1)
[2021-12-29 08:36] LABS: CREATININE 0.7 mg/dL (0.55-1.3)
[2021-12-29] MEDS: LIPASE/PROTEASE/AMYLASE 6,000 UNIT CAPSULE PO SCH ×2 (09:00→12:09)
[2021-12-29] MEDS: PANTOPRAZOLE 40 MG TABLET PO SCH (09:37)
[2021-12-29] MEDS: LOSARTAN POTASSIUM 50 MG TABLET PO SCH (09:37)
[2021-12-29] MEDS: FUROSEMIDE 40 MG TABLET (FP) PO SCH (09:37)
[2021-12-29] MEDS: amLODIPine BESYLATE 5 MG TABLET (FP) PO SCH (09:38)
[2021-12-29] MEDS: SERTRALINE HCL 50 MG TABLET (FP) PO SCH (09:38)
[2021-12-29] MEDS: OMEGA-3 ACID ETHYL ESTERS (FATTY-ACIDS) 1 GM CAPSULE (FP) PO SCH (09:38)
[2021-12-29] MEDS: APIXABAN 5 MG TABLET PO SCH (09:38)
[2021-12-29] MEDS: BUDESONIDE/FORMETEROL FUMARATE 160/4.5 mcg INHALER IH SCH (09:39)
== END 2021-12-29 15:04 | disposition home or self-care (01) | DRG 291 ==
LOC: JER 14:33 → JERBED 16:41 → J4W 12-26 00:44
PROVIDERS: ADMIT Internal Medicine; ATTEND Internal Medicine
DX: I11.0 Hypertensive heart disease with heart failure (principal); I50.33 Acute on chronic diastolic (congestive) heart failure; I48.91 Unspecified atrial fibrillation; E78.5 Hyperlipidemia, unspecified; Z85.118 Personal history of other malignant neoplasm of bronchus and lung; I71.2 Thoracic aortic aneurysm, without rupture; J45.909 Unspecified asthma, uncomplicated; E87.6 Hypokalemia; I34.0 Nonrheumatic mitral (valve) insufficiency; I27.20 Pulmonary hypertension, unspecified
CPT/HCPCS: 0241U-QW; 36415; 71045-TC-FY; 71275-TC; 80048; 80053; 80061; 82803; 83735; 83880; 84100; 84443; 84484; 85025; 93005; 93010; 93306-TC; 93970-TC; 94761; 99285-25; Q9967